=== PATIENT | female | born 1960 | race Caucasian/White ===

== ENCOUNTER 2022-04-30 01:16 | Outpatient (RCR) | payer BC, SELFPAY ==
--- OUTSIDE RECORDS SUMMARY | 2022-04-30 01:21 | XMS_ITS | Encounter Summary ---
:1960 Author Organization [facility] [place] [place] [address] Care Team Providers Name Role Phone Rhonda Oliva APRN Primary Care Provider [phone] Encounter Details Date Type Department Care Team Description 03/23/2022 Telephone [facility] [address] Social History Tobacco Use Types Packs/Day Years Used Date Former Smoker Smokeless Tobacco: Never Used Alcohol Use Standard Drinks/Week Comments Yes 4 (1 standard drink = 0.6 oz pure alcoho l) Sex Assigned at Date Recorded Not on file documented as of this encounter Miscellaneous Notes Telephone Encounter - Anika Viveros - 03/23/2022 9:51 AM EDT Jose, On December 30, 2021, the FDA recommended consideration of repeat dosing of EvuSheld every 6 months for patients with ongoing immunosuppression. If you have a patient that qualifies for a second dose of Evusheld, please follow the ???eD Tips and Tricks for Evusheld?? document for instructions on how to c onsent/order patients for this treatment. If you have ordered a first dose of Evusheld for a patient, the second dose follows the same process. According to [facility] records, Anika Reyes has received 1 dose of EVUSHELD (Tixagevimab and Cilgavimab) on 09/14/21. If you choose to order a second dose, after you have completed the consent and placed the order, our team will reach out to your patient for scheduling. We are working diligently to schedule one month ahead. Thank you, [employer] Team documented in this encounter Plan of Treatment Not on filedocumented as of this encounter Visit Diagnoses Not on filedocumented in this encounter Care Teams Internal Affairs Commander Relationship Specialty Start Date End Date Rhonda Oliva, SRAVAN PCP - General General Internal Medicine 01/13/22 [facility] [address] [address] documented as of this encounter
--- OUTSIDE RECORDS SUMMARY | 2022-04-30 01:21 | XMS_ITS | Clinical Summary ---
:1960 Author Organization [facility] [place] [address] Care Team Providers Name Role Phone Rhonda Oliva APRN Primary Care Provider [phone] Allergies Active Allergy Reactions Severity Noted Date Comments Epinephrine 09/27/2017 Faints Medications Medication Sig Dispensed Refills Start Date End Date Status eszopiclone (LUNESTA) 2 Take 2 mg by 0 Active mg Tablet mouth nightly as needed. LORazepam (ATIVAN) 0.5 Take 0.5 mg by 0 Active mg Tablet mouth as needed for Anxiety (prior to procedures). azaTHIOprine (Imuran) Take 1 tablet by 90 tablet 0 12/01/2021 Active 50 mg mouth daily. TabletIndications: Autoimmune hepatitis Additional Information Patient taking differently: 50 mg Oral NIGHTLY, Reported on 01/13/2022 omeprazole (PriLOSEC) Take 1 capsule by 60 capsule 0 2 01/16/2023 Active 40 mg Capsule, Delayed mouth 2 times daily. 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 Anika Viveros [place] 02/26/2022 Telephone Thoracic Surgery Raisa Horne RN 02/12/2022 TH Visit Thoracic Surgery Panfilo Horta History of esophagogastroduodenoscopy (EGD); (TeleHealth) MD Ronald Pneumomediastin um 02/11/2022 Telephone Thoracic Surgery Maurisio Christian R 02/01/2022 Ancillary Radiology [place], Procedure Rhonda Culver APRN from Last 3 Months Immunizations Name Administration Dates Next Due Pfizer Covid-19 (Purple Cap) Vaccine 02/18/2021, 10/16/2020, 09/25/2020 (12yrs+) Social History Tobacco Use Types Packs/Day Years Used Date Former Smoker Smokeless Tobacco: Never Used Alcohol Use Standard Drinks/Week Comments Yes 4 (1 standard drink = 0.6 oz pure alcoho l) Sex Assigned at Date Recorded Not on file Last Filed Vital Signs Vital Sign Reading Time Taken Comments Blood Pressure 135/81 01/16/2022 1:42 PM EDT Pulse 72 01/16/2022 1:42 PM EDT Temperature 36.8 ??C (98.2 ??F) 01/16/2022 1:42 PM EDT Respiratory Rate 18 01/16/2022 1:42 PM EDT Oxygen Saturation 100% 01/16/2022 1:42 PM EDT Inhaled Oxygen Concentration - - Weight 83.9 kg (185 lb) 01/13/2022 7:52 PM EDT Height 175.3 cm (5' 9) 01/13/2022 7:52 PM EDT Body Mass Index 27.32 01/13/2022 7:52 PM EDT Plan of Treatment Health Maintenance Due Date Last Done Comments HIV screen 1976 Hepatitis C Screening 1976 Tdap adult 1977 Tetanus vaccine 1977 HPV test 1988 PAP Smear 1988 Breast Cancer Share Decision 1998 Needed Colonoscopy 12/12/2003 Breast Cancer screening 2008 Zoster vaccine (1 of 2) 2008 Advance Directive 2013 Covid-19 Vaccine (4 - Booster for 04/15/2021 02/18/2021, , Pfizer series) 09/25/2020 Influenza (Flu) vaccine (1 of 1 - 03/04/2022 Influenza standard series) Diabetes Screening (HgbA1C or 01/15/2025 01/15/2022, 2021, Glucose) 06/02/2020, Additional history exists Procedures Procedure Name Priority Date/Time Associated Comments Diagnosis FILM LIBRARY STORAGE Routine 02/01/2022 12:00 AM Results for this ONLY DX CHEST EDT procedure are in the results section. DIAGNOSTIC RADIOLOGY 02/01/2022 12:00 AM Results for this SCAN EDT procedure are i n the results section. from Last 3 Months Results SCAN DOC: DIAGNOSTIC RADIOLOGY (02/01/2022 12:00 AM EDT) Narrative This result has an attachment that is no t available. Unknown MEDIA MGR SCAN EXT ORDR/RSLT Film Library- Storage Only DX Chest (02/01/2022 12:00 AM EDT) Specimen (Source) Anatomical Location Collection Method / Collectio n Time Received Time / Laterality Volume Narrative RAD - 02/11/2022 2:23 PM EDT This exam is auto-finalizing. It's purpo se is for storage only. Rhonda Oliva APRN IMG FILM LIBRARY ORDERABLES Performing Organization Address City/State/ZIP Code Phon e Number [place], [place] from Last 3 Months Insurance Payer Benefit Plan Subscriber ID Effective Dates Phone Address Type / Group [employer] [place] [facility] [id number] 2018[facility] [phone] [address] [facility] [address] [facility] [id number] (Work) [phone] Advance Directives Latest Code Status on File Code Status Date Activated Date Inactivated Comments Attempt Cardiopulmonary Resuscitation - 01/14/2022 12:54 AM 2021 4:26 PM Inpatient Code Status decision made by: Patient Care Teams Pyrometer Operator Relationship Specialty Start Date End Date Rhonda Oliva APRN PCP - General General Internal Medicine 01/13/[address] [facility] [address] [place], [place] [id number]
--- OUTSIDE RECORDS SUMMARY | 2022-04-30 01:21 | XMS_ITS | Encounter Summary ---
:1960 Author Organization [facility] Address [address] [place] [address] Care Team Providers Name Role Phone Rhonda Oliva APRN Primary Care Provider [phone] Encounter Details Date Type Department Care Team Description 04/14/2022 Telephone [place] [facility] [place] Petersen [place] [address] [place] [address] [phone] (Wo rk) Social History Tobacco Use Types Packs/Day Years Used Date Former Smoker Smokeless Tobacco: Never Used Alcohol Use Standard Drinks/Week Comments Yes 4 (1 standard drink = 0.6 oz pure alcoho l) Sex Assigned at Date Recorded Not on file documented as of this encounter Miscellaneous Notes Telephone Encounter - Marla Petersen MD - 04/14/2022 4:40 PM EDT Discussed current recommendations for second dose of Evusheld and booster. Will reach out to her PCPoffice to see if they can help arrange Evusheld at [facility]. documented in this encounter Plan of Treatment Not on filedocumented as of this encounter Visit Diagnoses Not on filedocumented in this encounter Care Teams Parking Station Attendant Relationship Specialty Start Date End Date Rhonda Oliva APRN PCP - General General Internal Medicine 01/13/[address] [place] [address] documented as of this encounter
--- OUTSIDE RECORDS SUMMARY | 2022-04-30 01:22 | XMS_ITS | Encounter Summary ---
:1960 Author Organization [facility] [place] [address] Care Team Providers Name Role Phone None Primary Care Provider Unavailable Reason for Visit Consultation (Routine) - Closed Specialty Diagnoses / Procedures Referred By Contact Refer red To Contact Diagnoses Autoimmune hepatitis Immunocompromised state due to drug therapy Marla Petersen MD [facility] Public Health [facility] [place] [address] [place] [address] Referral ID Status Reason Start Date Expiration Date Visits V isits Requested Authorized [id number] Closed Consult, 09/03/2021 09/03/2022 1 1 Test & Treat Encounter Details Date Type Department Care Team Description 09/14/2021 Clinical Support Public Health at [facility] At high risk for [facility] [place] [address] Social History Tobacco Use Types Packs/Day Years Used Date Former Smoker Smokeless Tobacco: Never Used Alcohol Use Standard Drinks/Week Comments Yes 4 (1 standard drink = 0.6 oz pure alcoho l) Sex Assigned at Date Recorded Not on file documented as of this encounter Patient Instructions Patient Jimmie Telles RN - 09/14/2021 9:54 AM EDT Thank you for seeking care at [facility]. You received an Evusheld (tixagevimab/cilgavimab) injection in the clinic today. Since you were monitored for 1 hour in the clinic for an allergic reaction to Evusheld, it is unlikely that you will develop an allergic reaction once leaving the clinic. However, please tell your healthcare provider right away if you get any of the following signs and symptoms of allergic reactions: fever, chills, nausea, headache, shortness of breath, low or high blood pressure, rapid or slow heartrate, chest discomfort or pain, weakness, confusion, feeling tired, wheezing, swelling of your lips,face, or throat, rash including hives, itching, muscle aches, dizziness and sweating. These reactions may be severe or life threatening. You may have pain, bruising of the skin, soreness, and swelling, at the injection site. These are all normal side effects that should resolve within a week of your injection. What are other important side effects of Evusheld? Cardiac (heart) events: Serious cardiac adverse events have happened, but were not common, in peoplewho received EVUSHELD and also in people who did not receive EVUSHELD in the clinical trial studyingpre-exposure prophylaxis for prevention of COVID-19. In people with risk factors for cardiac events ( including a history of heart attack), more people who received EVUSHELD experienced serious cardiac events than people who did not receive EVUSHELD. It is not known if these events are related to EVUSHELD or underlying medical conditions. Contact your healthcare provider or get medical help right awayif you get any symptoms of cardiac events, including pain, pressure, or discomfort in the chest, arms, neck, back, stomach or jaw, as well as shortness of breath, feeling tired or weak (fatigue), feeling sick (nausea), or swelling in your ankles or lower legs You can find further information about Evusheld here: https://www.fda.gov/media/675451/download documented in this encounter Plan of Treatment Not on filedocumented as of this encounter Visit Diagnoses Diagnosis At high risk for infection Other specified conditions influencing h ealth status documented in this encounter Administered Medications Inactive Administered Medications - up to 3 most recent administrations Medication Order MAR Action Action Date Dose Rate Site cilgavimab (Evusheld) 150 Given 09/14/2021 9:53 AM 300 mg Right Gluteal mg/1.5 mL intramuscular EDT injection (EUA) 300 mg 300 mg, Intramuscular, ONCE, 1 dose, On Tue09/14/21 at 1000, General information: DO NOT SHAKE VIALS. Prepared syringes should be administered immediately and discarded if not administered within 4 hours. Withdraw 300 mg (3 mL) from vial and inject into gluteal muscle. Administered with 300 mg (3 mL) of tixagevimab. Administer in different injection sites, preferably one in each of the gluteal muscles, one after the other., Outpatient Transfusion, Routine, Has the patient or caregiver been informed of alternatives to tixagevimab + cilgavimab? Yes, Has the patient or caregiver been informed tixagevimab + cilgavimab is not approved by the FDA and is authorized for use under Emergency Use Authorization? Yes, Has the patient or caregiver been given a tixagevimab + cilgavimab fact sheet? Yes tixagevimab (Evusheld) 150 mg/1.5 Given 09/14/2021 9:51 AM EDT 3 00 mg Left Gluteal mL intramuscular injection (EUA) 300 mg 300 mg, Intramuscular, ONCE, 1 dose, On Tue09/14/21 at 1000, General information: DO NOT SHAKE VIALS. Prepared syringes should be administered immediately and discarded if not administered within 4 hours. Withdraw 300 mg (3 mL) from vial and inject into gluteal muscle. Administered with 300 mg (3 mL) of cilgavimab. Administer in different injection sites, preferably one in each of the gluteal muscles, one after the other., Outpatient Transfusion, Routine, Has the patient or caregiver been informed of alternatives to tixagevimab + cilgavimab? Yes, Has the patient or caregiver been informed tixagevimab + cilgavimab is not approved by the FDA and is authorized for use under Emergency Use Authorization? Yes, Has the patient or caregiver been given a tixagevimab + cilgavimab fact sheet? Yes documented in this encounter Care Teams Skiver Machine Operator Relationship Specialty Start Date End Date None PCP - General 09/27/17 01/12/22 None documented as of this encounter
--- OUTSIDE RECORDS SUMMARY | 2022-04-30 01:22 | XMS_ITS | Encounter Summary ---
:1960 Author Organization [facility] [place] [address] Care Team Providers Name Role Phone None Primary Care Provider Unavailable Reason for Visit Reason Onset Date Comments Reminder Appointment 01/21/2021 Encounter Details Date Type Department Care Team Description 01/21/2021 Telephone [place] [facility] [place] Camara Reminder Appointment [facility] [place] [address] Social History Tobacco Use Types Packs/Day Years Used Date Former Smoker Smokeless Tobacco: Never Used Alcohol Use Standard Drinks/Week Comments Yes 4 (1 standard drink = 0.6 oz pure alcoho l) Sex Assigned at Date Recorded Not on file documented as of this encounter Miscellaneous Notes Telephone Encounter - Beatrice Camara CCMA - 01/21/2021 5:01 PM EDT Called patient to review medications and allergies for their upcoming gastroenterology Type of Appointment: Telehealth appointment. Reach Patient during MA Check: Yes Notes for the provider: Notes for the nurse: documented in this encounter Plan of Treatment Not on filedocumented as of this encounter Visit Diagnoses Not on filedocumented in this encounter Care Teams Master Hearth Technician Relationship Specialty Start Date End Date None PCP - General 09/27/17 01/12/22 None documented as of this encounter
--- OUTSIDE RECORDS SUMMARY | 2022-04-30 01:22 | XMS_ITS | Encounter Summary ---
:1960 Author Organization [facility] [address] Care Team Providers Name Role Phone None Primary Care Provider Unavailable Reason for Visit Reason Onset Date Comments Medication Refill 10/06/2018 Encounter Details Date Type Department Care Team Description 10/06/2018 Refill [place] [facility] [place]la Petersen, Autoimmune hepatitis [facility] [place] [phone] [facility] [phone] [place], [place] [address] Social History Tobacco Use Types Packs/Day Years Used Date Former Smoker Smokeless Tobacco: Never Used Alcohol Use Standard Drinks/Week Comments Yes 4 (1 standard drink = 0.6 oz pure alcoho l) Sex Assigned at Date Recorded Not on file documented as of this encounter Plan of Treatment Not on filedocumented as of this encounter Visit Diagnoses Diagnosis Autoimmune hepatitis documented in this encounter Care Teams Industrial Servicer Relationship Specialty Start Date End Date None PCP - General 09/27/17 01/12/22 None documented as of this encounter
--- OUTSIDE RECORDS SUMMARY | 2022-04-30 01:22 | XMS_ITS | Encounter Summary ---
:1960 Author Organization [facility] [place] [address] Care Team Providers Name Role Phone Rhonda Oliva APRN Primary Care Provider [phone] Reason for Referral Diagnostic Test (Emergency) - Closed Specialty Diagnoses / Procedures Referred By Contact Refer red To Contact Radiology Diagnoses Abnormal findings on esophagogastroduodenoscopy (EGD) Marla Petersen MD [facility] Rad Ct Scan Procedures CT Chest w Contrast [facility] [place] [address] [place] [address] Phone: Referral ID Status Reason Start Date Expiration Date Visits V isits Requested Authorized [id number] Closed Specialty 01/13/2022 07/16/2023 1 1 Service Requested Encounter Details Date Type Department Care Team Description 01/13/2022 Orders Only Gastroenterology at [place], Abnormal findings on [facility] Marla Culver MD esophagogastroduodenoscopy [facility] (EGD) [facility] [place] [address] Social History Tobacco Use Types Packs/Day Years Used Date Former Smoker Smokeless Tobacco: Never Used Alcohol Use Standard Drinks/Week Comments Yes 4 (1 standard drink = 0.6 oz pure alcoho l) Sex Assigned at Date Recorded Not on file documented as of this encounter Plan of Treatment Not on filedocumented as of this encounter Results CT Chest w Contrast (01/13/2022 5:27 PM EDT) Anatomical Region Laterality Modality Chest Computed Tomography Specimen (Source) Anatomical Collection Method Collection Time Re ceived Time Location / / Volume Laterality 01/13/2022 5:44 PM EDT Impressions 01/13/2022 6:50 PM EDT Extensive mottled free air extending from the lower neck soft tissues, the mediastinum, peritoneum and retroperiton eum, compatible with an esophageal perforation. These findings were discussed with Dr. Lilia gutierrez at the time of this dictation. Thank you for letting us participate in the care of this patient. ??If you are a health care provider and have any questi ons regarding this report, please contact the number below. ??For patients who have questions please contact the health rn critical care that requested your imaging first. ? Electronically signed by: Duong zacarias MD, [facility] ([phone]), at 01/13/2022 6:50 PM Narrative 01/13/2022 6:50 PM EDT EXAMINATION: CT CHEST W CONTRAST CLINICAL HISTORY: r/u esophageal perfora tion EGD on 01/13/22 for dysphagia, ring dilat ed, deep defect post, concern for esophageal perforation, did not tolerate esophagram due to claustrophobia, oral contrast TECHNIQUE: 3.75 mm thick axial contiguou s sections were obtained through the chest via helical acquisition after the intravenous administration of contrast, Administered 60.0 ml of OMNIPAQUE 350.00 mg/ml. Thin-section reconstructions as well as coronal and sagittal reformatted images were generated. COMPARISON: None FINDINGS: Esophagus: Although no enteric contrast appears to have extravasated from the esophageal lumen, extensive mottled free air is seen extending from ??the distal esophagus just proximal to the GE juncti on. The mottled air extends into the peritoneum, and peritoneal fat adjacent to the lesser curvature of the stomach, and into the retroperitoneum, particular ly on the LEFT. Air is also noted superiorly with trace air in the mediast inum (series 3, image 29) and into the lower neck soft tissues. Findings are co mpatible with an esophageal perforation. Pulmonary parenchyma: Mild bibasilar foc al atelectasis. Airways: No significant findings. Pleura: No significant findings. Lymph nodes: No significant findings. Heart, pericardium, and great vessels: E ctasia of ascending aorta measuring 4.1 cm. Other mediastinal structures: Trace medi astinal free air, or esophageal perforation, as described above. Lower neck: Trace multiple free air is s een in the lower neck soft tissues Upper abdomen: Multiple free air as desc ribed above. No loculated collections that can be seen Body wall soft tissues: No significant f indings. Skeletal structures: No significant find ings. Procedure Note Duong Burns MD - 01/13/2022Form atting of this note might be different from the original. EXAMINATION: CT CHEST W CONTRAST CLINICAL HISTORY: r/u esophageal perfora tion EGD on 01/13/22 for dysphagia, ring dilat ed, deep defect post, concern for esophageal perforation, did not tolerate esophagram due to claustrophobia, oral contrast TECHNIQUE: 3.75 mm thick axial contiguou s sections were obtained through the chest via helical acquisition after the intravenous administration of contrast, Administered 60.0 ml of OMNIPAQUE 350.00 mg/ml. Thin-section reconstructions as well as coronal and sagittal reformatted images were generated. COMPARISON: None FINDINGS: Esophagus: Although no enteric contrast appears to have extravasated from the esophageal lumen, extensive mottled free air is seen extending from the distal esophagus just proximal to the GE juncti on. The mottled air extends into the peritoneum, and peritoneal fat adjacent to the lesser curvature of the stomach, and into the retroperitoneum, particular ly on the LEFT. Air is also noted superiorly with trace air in the mediast inum (series 3, image 29) and into the lower neck soft tissues. Findings are co mpatible with an esophageal perforation. Pulmonary parenchyma: Mild bibasilar foc al atelectasis. Airways: No significant findings. Pleura: No significant findings. Lymph nodes: No significant findings. Heart, pericardium, and great vessels: E ctasia of ascending aorta measuring 4.1 cm. Other mediastinal structures: Trace medi astinal free air, or esophageal perforation, as described above. Lower neck: Trace multiple free air is s een in the lower neck soft tissues Upper abdomen: Multiple free air as desc ribed above. No loculated collections that can be seen Body wall soft tissues: No significant f indings. Skeletal structures: No significant find ings. IMPRESSION Extensive mottled free air extending fro m the lower neck soft tissues, the mediastinum, peritoneum and retroperiton eum, compatible with an esophageal perforation. These findings were discussed with Dr. Lilia gutierrez at the time of this dictation. Thank you for letting us participate in the care of this patient. If you are a health care provider and have any questi ons regarding this report, please contact the number below. For patients w ho have questions please contact the health rn critical care that requested your imaging first. Electronically signed by: Duong zacarias MD, [facility] ([phone]), at 01/13/2022 6:50 PM Marla Petersen MD IMG CT ORDERABLES documented in this encounter Visit Diagnoses Diagnosis Abnormal findings on esophagogastroduode noscopy (EGD) Abnormal findings on esophagogastroduode noscopy (EGD) documented in this encounter Care Teams Break Out Worker Relationship Specialty Start Date End Date Rhonda Oliva, CISCO CONSULTANT PCP - General General Internal Medicine 01/13/[address] [place] [address] documented as of this encounter
--- OUTSIDE RECORDS SUMMARY | 2022-04-30 01:22 | XMS_ITS | Encounter Summary ---
:1960 Author Organization [place] [address] Care Team Providers Name Role Phone None Primary Care Provider Unavailable Encounter Details Date Type Department Care Team Description 04/03/2018 Orders Only Gastroenterology at [facility] Marla Petersen, Fatigue, unspecified [facility] [place] [address] [facility] [phone] [place] [facility] Social History Tobacco Use Types Packs/Day Years Used Date Former Smoker Smokeless Tobacco: Never Used Alcohol Use Standard Drinks/Week Comments Yes 4 (1 standard drink = 0.6 oz pure alcoho l) Sex Assigned at Date Recorded Not on file documented as of this encounter Plan of Treatment Not on filedocumented as of this encounter Visit Diagnoses Diagnosis Fatigue, unspecified type documented in this encounter Care Teams Cottonseed Meat Presser Relationship Specialty Start Date End Date None PCP - General 09/27/17 01/12/22 None documented as of this encounter
--- OUTSIDE RECORDS SUMMARY | 2022-04-30 01:22 | XMS_ITS | Encounter Summary ---
:1960 Author Organization [facility] [place] [address] Care Team Providers Name Role Phone Rhonda Oliva APRN Primary Care Provider [phone] Encounter Details Date Type Department Care Team Description 02/01/2022 Ancillary Procedure Radiology Library at Nikolay Oliva [facility] Culver [facility] [address] [address] [place] [address] [phone] (Wo rk) Social History Tobacco Use Types Packs/Day Years Used Date Former Smoker Smokeless Tobacco: Never Used Alcohol Use Standard Drinks/Week Comments Yes 4 (1 standard drink = 0.6 oz pure alcoho l) Sex Assigned at Date Recorded Not on file documented as of this encounter Plan of Treatment Not on filedocumented as of this encounter Procedures Procedure Name Priority Date/Time Associated Diagnosis Comme nts FILM LIBRARY Routine 02/01/2022 12:00 AM Results for this STORAGE ONLY DX EDT procedure ar e in CHEST the results section. documented in this encounter Results Film Library- Storage Only DX Chest (02/01/2022 12:00 AM EDT) Specimen (Source) Anatomical Location Collection Method / Collectio n Time Received Time / Laterality Volume Narrative RAD - 02/11/2022 2:23 PM EDT This exam is auto-finalizing. It's purpo se is for storage only. Rhonda Oliva APRN IMNatalei FILM LIBRARY ORDERABLES Performing Organization Address City/State/ZIP Code Phon e Number DH RAD DH RAD [place], [place] documented in this encounter Visit Diagnoses Not on filedocumented in this encounter Care Teams Warehouse Clerk Relationship Specialty Start Date End Date Rhonda Oliva APRN PCP - General General Internal Medicine 01/13/[address] [place] [address] documented as of this encounter
--- OUTSIDE RECORDS SUMMARY | 2022-04-30 01:22 | XMS_ITS | Encounter Summary ---
:1960 Author Organization [facility] Address [facility] [address] [place] [address] Care Team Providers Name Role Phone Rhonda Oliva APRN Primary Care Provider [phone] Encounter Details Date Type Department Care Team Description 01/25/2022 Telephone Gastroenterology at [facility] Brigette Guzman CMA [facility] [place] [address] DEPT [phone] Social History Tobacco Use Types Packs/Day Years Used Date Former Smoker Smokeless Tobacco: Never Used Alcohol Use Standard Drinks/Week Comments Yes 4 (1 standard drink = 0.6 oz pure alcoho l) Sex Assigned at Date Recorded Not on file documented as of this encounter Miscellaneous Notes Telephone Encounter - Brigette Guzman CMA - 01/25/2022 8:20 AM EDT Called patient to review medications and allergies for their upcoming gastroenterology Type of Appointment: Telehealth appointment. Reach Patient during MA Check: Yes Notes for the provider: Notes for the nurse: documented in this encounter Plan of Treatment Not on filedocumented as of this encounter Visit Diagnoses Not on filedocumented in this encounter Care Teams Injection Molding Machine Operator Relationship Specialty Start Date End Date Rhonda Oliva APRN PCP - General General Internal Medicine 01/13/[address] [place], [place] [address] documented as of this encounter
--- OUTSIDE RECORDS SUMMARY | 2022-04-30 01:22 | XMS_ITS | Encounter Summary ---
:1960 Author Organization [facility] [place] [address] Care Team Providers Name Role Phone Rhonda Oliva APRN Primary Care Provider [phone] Encounter Details Date Type Department Care Team Description 01/21/2022 Orders Only Thoracic Surgery Charly Tinajero History of [facility] esophagogastroduodenoscopy (EGD) Center [facility] [address] THORACIC [phone] [place] [address] Social History Tobacco Use Types Packs/Day Years Used Date Former Smoker Smokeless Tobacco: Never Used Alcohol Use Standard Drinks/Week Comments Yes 4 (1 standard drink = 0.6 oz pure alcoho l) Sex Assigned at Date Recorded Not on file documented as of this encounter Plan of Treatment Scheduled Orders Name Type Priority Associated Diagnoses Order S chedule XR Chest PA & Imaging Routine History of Expected: Lateral esophagogastroduodenoscopy ( EGD) 02/04/2022, (Generic) Expires: 08/06/2022 documented as of this encounter Visit Diagnoses Diagnosis History of esophagogastroduodenoscopy (E GD) documented in this encounter Care Teams Dike Supervisor Relationship Specialty Start Date End Date Rhonda Oliva APRN PCP - General General Internal Medicine 01/13/[address] [place] [address] documented as of this encounter
--- OUTSIDE RECORDS SUMMARY | 2022-04-30 01:22 | XMS_ITS | Encounter Summary ---
:1960 Author Organization [facility] [place] [address] Care Team Providers Name Role Phone Rhonda Oliva APRN Primary Care Provider Reason for Referral Diagnostic Test (Emergency) - Closed Specialty Diagnoses / Procedures Referred By Contact Refer red To Contact Radiology Diagnoses Abnormal findings on esophagogastroduodenoscopy (EGD) Marla Petersen MD [facility] Rad Ct Scan Procedures CT Chest w Contrast [facility] [place] [address] [place] [address] Phone: Referral ID Status Reason Start Date Expiration Date Visits V isits Requested Authorized [id number] Closed Specialty 01/13/2022 07/16/2023 1 1 Service Requested Reason for Visit Auth/Cert Specialty Diagnoses / Procedures Referred By Contact Refer red To Contact Diagnoses Acute mediastinitis Cece Coello MD [facility] Procedures EMERGENCY IPI [facility] [address] Referral ID Status Reason Start Date Expiration Date Visits Requ ested Visits Authorized [id number] 1 1 Encounter Details Date Type Department Care Team Description 01/13/[address] Scan at [facility] Abnormal findings on Encounter [facility] esophagogastrod uodenoscopy (EGD) [place] [address] Social History Tobacco Use Types Packs/Day Years Used Date Former Smoker Smokeless Tobacco: Never Used Alcohol Use Standard Drinks/Week Comments Yes 4 (1 standard drink = 0.6 oz pure alcoho l) Sex Assigned at Date Recorded Not on file documented as of this encounter Medications at Time of Discharge Medication Sig Dispensed Refills Start Date End Date omeprazole (PriLOSEC) 40 Take 1 capsule by 60 capsule 0 01/0101/16/2023 mg Capsule, Delayed mouth 2 times Release(E.C.) daily. Resume taking previous once daily dose in 1 month (around 02/16/2022) azaTHIOprine (Imuran) 50 Take 1 tablet by 90 tablet 0 12/01 mg TabletIndications: mouth daily. Autoimmune hepatitis LORazepam (ATIVAN) 0.5 mg Take 0.5 mg by 0 Tablet mouth as needed for Anxiety (prior to procedures). eszopiclone (LUNESTA) 2 Take 2 mg by mouth 0 mg Tablet nightly as needed. amoxicillin-clavulanate Take 7.3 mLs by 29.2 mL 0 022 01/18/2022 (Augmentin-ES) 600-42.9 mouth every 12 mg/5 mL Suspension for hours for 2 days. Reconstitution omeprazole (PRILOSEC OTC) Take 20 mg by mouth 0 01/16/2022 20 mg Tablet, Delayed daily. Release (E.C.) documented as of this encounter Plan of Treatment Not on filedocumented as of this encounter Procedures Procedure Name Priority Date/Time Associated Diagnosis Comme nts CT CHEST W STAT 01/13/2022 5:27 Abnormal findings on Resu lts for CONTRAST PM EDT esophagogastroduodenoscopy ( EGD) this procedure are in the results section. documented in this encounter Results CT Chest w Contrast [...] who have questions please contact the health transitions rn care coordinator that requested your imaging first. ? Narrative 01/13/2022 6:50 PM EDT EXAMINATION: CT [...] ho have questions please contact the health transitions rn care coordinator that requested your imaging first. Marla Petersen MD IMG CT ORDERABLES documented in this encounter Visit Diagnoses Diagnosis Abnormal findings on esophagogastroduode noscopy (EGD) documented in this encounter Administered Medications Inactive Administered Medications - up to 3 most recent administrations Medication Order MAR Action Action Date Dose Rate Site iohexoL (Omnipaque) (350 mg/mL) Given 01/13/2022 5:11 PM EDT 60 mLs solution 0-200 mL 0-200 mL, Intravenous, ONCE PRN, 1 dose, Starting on Tue01/13/22 at 1711, Until Tue01/13/22 at 1711, Per Protocol, Warning Vesicant/Irritant Medication , Radiology Contrast, Routine documented in this encounter Care Teams Yarn Texture Machine Operator Relationship Specialty Start Date End Date Rhonda Oliva, PURCHASING DIRECTOR PCP - General General Internal Medicine 01/13/[address] [place] [address] documented as of this encounter
--- OUTSIDE RECORDS SUMMARY | 2022-04-30 01:22 | XMS_ITS | Encounter Summary ---
:1960 Author Organization [facility] [place] [address] Care Team Providers Name Role Phone None Primary Care Provider Unavailable Encounter Details Date Type Department Care Team Description 01/20/2018 Telephone Gastroenterology at [facility] Mika Chase [facility] [place] [address] Social History Tobacco Use Types Packs/Day Years Used Date Former Smoker Smokeless Tobacco: Never Used Sex Assigned at Date Recorded Not on file documented as of this encounter Miscellaneous Notes Telephone Encounter - Mika Chase - 01/20/2018 1:11 PM EDT Pt called to schedule an EGD. I told her there was no order for an EGD but there were orders for labs. Pt said she wanted to do the labs locally. I asked where I could fax the orders to but she did notknow a facility since she just moved to the area. She will find out where she wants to have the lab orders faxed to and will call us back. documented in this encounter Plan of Treatment Not on filedocumented as of this encounter Visit Diagnoses Not on filedocumented in this encounter Care Teams Hypoid Gear Generator Relationship Specialty Start Date End Date None PCP - General 09/27/17 01/12/22 None documented as of this encounter
--- OUTSIDE RECORDS SUMMARY | 2022-04-30 01:22 | XMS_ITS | Encounter Summary ---
:1960 Author Organization [facility] Address [facility] [place] [address] Care Team Providers Name Role Phone None Primary Care Provider Unavailable Reason for Visit Reason Onset Date Comments Other 10/06/2018 refill request Encounter Details Date Type Department Care Team Description 10/06/2018 Telephone Gastroenterology at [facility] [place] Jean Paul Meek (refill [facility] Lilia Ramsey RN request) [place] [address] Social History Tobacco Use Types Packs/Day Years Used Date Former Smoker Smokeless Tobacco: Never Used Alcohol Use Standard Drinks/Week Comments Yes 4 (1 standard drink = 0.6 oz pure alcoho l) Sex Assigned at Date Recorded Not on file documented as of this encounter Miscellaneous Notes Telephone Encounter - Joe Jaquez RN - 10/06/2018 3:24 PM EDT Called patient and advised her per Dr. Nicola biggs to continue taking 75mg daily as she has been doing. Will discuss dosing at her scheduled office visit in November. Refills sent in for patient. The patient indicates understanding of these issues and agrees with the plan. Telephone Encounter - Daniela Meek RN - 10/06/2018 12:02 PM EDT Received call from patient asking for refill of Azathioprine 75 mg daily. Reviewed chart. Patient last seen in clinic September 2017. Most recent labs received from September 2018 and forwarded to provider. At last office visit discussed lowering dose of Azathioprine to 50 mg and last refill from Apr 2018 was sent for that dosage. On patient's phone message, she indicated that she continues to take the 75mg dose. Attempted to reach patient to discuss but her telephone was not receiving calls. Will review dosage and recent labs with provider. Message sent to scheduling to help facilitate a f/u appointment for patient here in GI. documented in this encounter Plan of Treatment Not on filedocumented as of this encounter Visit Diagnoses Not on filedocumented in this encounter Care Teams Jinriksha Driver Relationship Specialty Start Date End Date None PCP - General 09/27/17 01/12/22 None documented as of this encounter
--- OUTSIDE RECORDS SUMMARY | 2022-04-30 01:22 | XMS_ITS | Encounter Summary ---
:1960 Author Organization [facility] [place] [address] Care Team Providers Name Role Phone Rhonda Oliva APRN Primary Care Provider [phone] Reason for Referral Diagnostic Test (Emergency) - Authorized Specialty Diagnoses / Procedures Referred By Contact Refer red To Contact Radiology Diagnoses Abnormal findings on esophagogastroduodenoscopy (EGD) Marla Petersen MD [facility] Rad Xray Procedures XR Fluoro Barium Swallow (Single Contrast) [address] [place], [place], [place] [id number] Referral ID Status Reason Start Expiration Visits Visits Date Date Requested Authorized [id number] Authorized Specialty 01/13/2022 07/16/2023 1 1 Service Requested Encounter Details Date Type Department Care Team Description 01/13/2022 Orders Only Gastroenterology at [place], Abnormal findings on [facility] Marla Culver MD esophagogastroduodenoscopy [facility] (EGD) [facility] [address], [place] [address] [id number] Social History Tobacco Use Types Packs/Day Years Used Date Former Smoker Smokeless Tobacco: Never Used Alcohol Use Standard Drinks/Week Comments Yes 4 (1 standard drink = 0.6 oz pure alcoho l) Sex Assigned at Date Recorded Not on file documented as of this encounter Plan of Treatment Scheduled Orders Name Type Priority Associated Diagnoses Order S chedule XR Fluoro Barium Imaging STAT Abnormal findings on Exp ected: Swallow (Single esophagogastroduodenoscop y (EGD) 01/13/2022, Contrast) Expires: 07/15/2022 documented as of this encounter Visit Diagnoses Diagnosis Abnormal findings on esophagogastroduode noscopy (EGD) documented in this encounter Care Teams Beam Builder Relationship Specialty Start Date End Date Rhonda Oliva, CAPACITY ANALYST PCP - General General Internal Medicine 01/13/[address] [place] [address] documented as of this encounter
--- OUTSIDE RECORDS SUMMARY | 2022-04-30 01:22 | XMS_ITS | Encounter Summary ---
:1960 Author Organization [facility] [place] [address] Care Team Providers Name Role Phone None Primary Care Provider Unavailable Encounter Details Date Type Department Care Team Description 07/27/2021 TH Visit Gastroenterology at [facility] Marla Petersen, Autoimmune hepatitis; (TeleHealth) [facility] Lilia abarca MD Exposure to COVID-19 virus; [place] [address] [facility] Dysphagia, unspecified type [phone] [place] [address] Social History Tobacco Use Types Packs/Day Years Used Date Former Smoker Smokeless Tobacco: Never Used Alcohol Use Standard Drinks/Week Comments Yes 4 (1 standard drink = 0.6 oz pure alcoho l) Sex Assigned at Date Recorded Not on file documented as of this encounter Progress Notes Marla Petersen MD - 07/27/2021 9:30 AM EST GASTROENTEROLOGY TELEMEDICINE PROGRAM - ESTABLISHED PATIENT VISIT Chief Complaint: Anika Reyes is a 60 y.o. patient of ??for follow-up of AIH and dysphagia. ?? Detailed history:?? Autoimmune Hepatitis - Diagnosed in Aug 2014, she had a liver biopsy at that time. Initially on Prednisone which was rapidly tapered requiring restarting prednisone with a slow taper and AZA (initially 50 mg, but was empirically increased to 75 mg after stopping steroids).?? -??Repeat biopsy in 02/2016 showed treated AIH and focal bridging fibrosis.?? - Fibroscan 09/2017 F0-1 - Decreased AZA from 75 mg to 50 mg 11/30/2018 ?? Dysphagia -??She has history of Schatzki's ring which was dilated in 2011?? - EGD 03/2018 was negative, normal esophageal biopsies?? Interval history: She reports feeling well. She was exposed to COVID over the holidays. She tested negative multiple times (both at home antigen test and PCR test). She reports smelling smoke starting about one week after exposure with a reduction in normal sense of smell. Review of systems: 14-point review of systems reviewed and negative except as above. Medications: Outpatient Medications Prior to Visit Medication Sig Dispense Refill ??? azaTHIOprine (Imuran) 50 mg Tablet TAKE ONE TABLET BY MOUTH EVERY DAY 90 tablet 1 ??? LORazepam (ATIVAN) 0.5 mg Tablet Take 0.5 mg by mouth every 6 hours as needed for Anxiety. ??? eszopiclone (LUNESTA) 2 mg Tablet Take 2 mg by mouth nightly as needed. ??? omeprazole (PRILOSEC OTC) 20 mg Tablet, Delayed Release (E.C.) Take 20 mg by mouth as needed. No facility-administered medications prior to visit. Allergies: is allergic to epinephrine. Past Medical History: [facility] Past Surgical History: has a past surgical history that includes Upper Gi Endoscopy, Biopsy (13077) (N/A, 03/29/2018). Social History: reports that she has quit smoking. She has never used smokeless tobacco. She reportscurrent alcohol use of about 4.0 standard drinks of alcohol per week. She reports that she does not use drugs. Physical exam: No Physical Examination performed during this telemedicine visit Laboratory studies, imaging, and procedures (my review of prior records): No visits with results within 3 Month(s) from this visit. Latest known visit with results is: External Results on 06/11/2020 Component Date Value Ref Range Status ??? Sodium 06/02/2020 141 Final ??? Potassium 06/02/2020 4.2 Final ??? Chloride 06/02/2020 104 Final ??? CO2 06/02/2020 29 Final ??? BUN 06/02/2020 12 Final ??? Creatinine 06/02/2020 0.69 Final ? ? Estimated GFR 06/02/2020 >60 Final ??? Glucose Lvl 06/02/2020 90 Final ??? Calcium 06/02/2020 10.0 Final ??? Total Protein 06/02/2020 6.9 Final ??? Albumin 06/02/2020 4.4 Final ??? Total Bilirubin 06/02/2020 1 Final ??? Alk Phos 06/02/2020 50 Final ??? AST 06/02/2020 27 Final ??? ALT 06/02/2020 16 Final ??? PT 06/02/2020 11.3 Final ??? INR 06/02/2020 1.00 Final Assessment/Plan: Ms. Reyes is a 60 y.o. patient with autoimmune hepatitis and dysphagia (prior dilation of ring).We discussed that her recent change in her sense of smell could potentially be due to COVID infection. Will obtain antibody testing to determine whether she had prior infection. Discussed that her PCR testing may have been too late (10 days after onset of symptoms) to detect infection. If her Covid antibody testing is not consistent with prior infection, discussed further evaluation for this symptom would be necessary. We will update her liver enzymes now. As for her dysphagia her symptoms continue to be mild and intermittent. Upper endoscopy has been recommended for repeat dilation, she would liketo defer this until the summer due to the ongoing Covid pandemic. Her is on rituximab for cancer treatment and she is concerned about exposures. Recommendations: Liver enzymes now, if normal will repeat in 6 months. COVID-19 antibody testing (both spike and nucleocapsid). EGD with conscious sedation this summer. I spent 25 minutes face to face with the patient. 25 minutes were spent on counseling and discussionas of the above during this telemedicine visit. The patient was located in [place] at the timeof their visit. Approximae time in review of records and documentation 5 minutes. Approximate total time devoted to this single encounter on the day of the encounter: 30 minutes Marla Petersen MD [facility] [place] [address] documented in this encounter Plan of Treatment Scheduled Orders Name Type Priority Associated Diagnoses Order S chedule ENDOSCOPY CASE Procedures Routine Dysphagia, unspecified Ord ered: 07/27/2021 REQUEST: EGD, UPPER GI type ENDOSCOPY documented as of this encounter Visit Diagnoses Diagnosis Autoimmune hepatitis Exposure to COVID-19 virus Dysphagia, unspecified type documented in this encounter Care Teams Groover And Striper Operator Relationship Specialty Start Date End Date None PCP - General 09/27/17 01/12/22 None documented as of this encounter
--- OUTSIDE RECORDS SUMMARY | 2022-04-30 01:22 | XMS_ITS | Encounter Summary ---
:1960 Author Organization [facility] [place] [address] Care Team Providers Name Role Phone None Primary Care Provider Unavailable Reason for Visit Reason Onset Date Comments Medication Refill 04/17/2018 Encounter Details Date Type Department Care Team Description 04/17/2018 Refill [place] [facility] [place] MD [facility] [place] [address] GASTROENTEROLOGY [place] [id number] Social History Tobacco Use Types Packs/Day Years [...] hepatitis documented in this encounter Care Teams Psychology Physician Relationship Specialty Start Date End Date None PCP - General 09/27/17 01/12/22 None documented as of this encounter
--- OUTSIDE RECORDS SUMMARY | 2022-04-30 01:22 | XMS_ITS | Encounter Summary ---
:1960 Author Organization [facility] [place] [address] Care Team Providers Name Role Phone None Primary Care Provider Unavailable Encounter Details Date Type Department Care Team Description 03/29/2018 Hospital Encounter Gastro[place]ology at [facility] Marla Petersen, [facility] [place] [address] [facility] [phone] [place] [address] Social History Tobacco Use Types Packs/Day Years Used Date Former Smoker Smokeless Tobacco: Never Used Alcohol Use Standard Drinks/Week Comments Yes 4 (1 standard drink = 0.6 oz pure alcoho l) Sex Assigned at Date Recorded Not on file documented as of this encounter Last Filed Vital Signs Vital Sign Reading Time Taken Comments Blood Pressure 113/72 03/29/2018 10:45 AM EDT Pulse 58 03/29/2018 10:27 AM EDT Temperature 36.3 ??C (97.3 ??F) 03/29/2018 9:14 AM EDT Respiratory Rate 16 03/29/2018 10:27 AM EDT Oxygen Saturation 99% 03/29/2018 10:45 AM EDT Inhaled Oxygen Concentration - - Weight 74.8 kg (165 lb) 03/29/2018 9:14 AM EDT Height - - Body Mass Index 25.09 09/27/2017 9:31 AM EDT documented in this encounter Discharge Instructions Discharge InstructionsRubi Gaming RN - 03/29/2018 10:29 AM EDT UPPER GI ENDOSCOPY with biopsies WHAT TO EXPECT AFTER THE PROCEDURE After the test you may feel a little more gassy or bloated than usual, this is normal. ACTIVITY Because of the sedation that you received Your judgement and reaction time are affected ?? Go home and rest quietly for the remainder of the day. You may resume your normal activities tomorrow. ?? Change from one position to the next slowly. You may lose your balance unexpectedly Be careful on stairs, as you may be unsteady on your feet. FOR THE NEXT 24 HRS ?? DO NOT DRIVE OR OPERATE ANY MACHINERY ?? DO NOT DRINK ALCOHOLIC BEVERAGES ?? DO NOT SIGN LEGAL DOCUMENTS ?? If you are a smoker: DO NOT SMOKE WHILE YOU ARE ALONE Diet ?? Start by eating small portions of foods that ordinarily will not upset your stomach. Be gentle with what you choose to start with. ?? Drink plenty of fluids ( unless otherwise told not to) Medications You may have a mild sore throat. Ice chips, popsicles, over the counter throat lozenges or spray may help numb your throat. This procedure should not cause a fever. IV SITE-- slight redness or tenderness is normal, you can use warm compresses if you get concerned.If the tenderness +/or redness increases or foul drainage and a red streak occurs, please contact your PCP immediately. WHEN SHOULD YOU CALL FOR HELP? Call 911 anytime you think that you need emergency care. For example, call if: You passed out (lost consciousness). You cough up blood. You vomit blood or what looks like coffee grounds. You pass maroon or very bloody stools. Call your healthcare provider or seek immediate medical attention if: You have trouble swallowing. You have belly pain. Your stools are black or tarlike or have streaks of blood. You are sick to your stomach or cannot keep fluids down. Watch closely for changes in your health, and be sure to contact your doctor IF Your throat still hurts after a day or two You do not get better as expected. Tuesday-Tuesday Same Day Endo [phone] [id number]-[id number] Otherwise contact [phone] and ask to speak to the back tender contact center associate Follow-up care is a cortez part of your treatment and safety. Be sure to make and go to all appointments, and call your doctor if you are having problems. Instructions have been reviewed and patient expresses understanding documented in this encounter Medications at Time of Discharge Medication Sig Dispensed Refills Start Date End Date LORazepam (ATIVAN) 0.5 mg Take 0.5 mg by mouth 0 Tablet as needed for Anxiety (prior to procedures). eszopiclone (LUNESTA) 2 Take 2 mg by mouth 0 mg Tablet nightly as needed. azaTHIOprine (IMURAN) 50 Take 75 mg by mouth 0 04/17/2018 mg Tablet daily. omeprazole (PRILOSEC OTC) Take 20 mg by mouth 0 01/16/2022 20 mg Tablet, Delayed daily. Release (E.C.) documented as of this encounter H&P Notes Marla Petersen MD - 03/29/2018 9:45 AM EDT Patient Name: Anika Reyes Patient Age: 57 y.o. Birthdate: 1960 Admit date: 03/29/2018 Attending Physician: Marla Petersen MD Gastroenterology and Hepatology Pre-Procedure History and Physical Exam Procedure: EGD: Indication: Dysphagia, regurgitation There is no problem list on file for this patient. EXAM: HEENT: Airway examined, oropharynx clear Mallampati Score: II (soft palate, uvula, fauces visible) LUNGS: Clear to auscultation HEART: Regular rate and rhythm, normal S1, S2 ABDOMEN: Normal bowel sounds, soft, non tender, non distended, A/P Proceed with the planned endoscopic procedure. ASA 2 - Patient with mild systemic disease with no functional limitations Sedation Plan: moderate (conscious sedation) Risks and benefits of the procedure explained to the patient. Consent signed. documented in this encounter Plan of Treatment Not on filedocumented as of this encounter Procedures Procedure Name Priority Date/Time Associated Diagnosis Comme nts SPECIMEN TO Routine 03/29/2018 10:19 Results for this PATHOLOGY AM EDT procedure are i n the results section. SURGICAL PATHOLOGY Routine 03/29/2018 10:17 Resul ts for this REPORT AM EDT procedure are i n the results section. EGD WITH BIOPSY 03/29/2018 9:58 AM Schatzki's ring, (WRVU 2.49) EDT GERD, or eosinophilic esophagitis. Recommended EGD for follow-up with potential dilation - [facility] Off Meds UPPER GI ENDOSCOPY Routine 03/29/2018 9:43 AM Res ults for this EDT procedure are i n the results section. documented in this encounter Results Specimen to Pathology (03/29/2018 10:19 AM EDT) Specimen Anatomical Collection Method Collection Time Receive d Time (Source) Location / / Volume Laterality AP Specimen 03/29/2018 10:19 03/29/2018 AM EDT 10:19 AM EDT Narrative [facility] - 03/29/2018 10:19 AM EDT Specimen requisition ordered. ??Separate Pathology report to follow Marla Petersen MD PATHOLOGY/CYTOLOGY ORDERABLE S Performing Organization Address City/State/[place] [address] [facility] [address] Surgical Pathology Report (03/29/2018 10:17 AM EDT) Component Value Ref Test Analysis Performed At [facility] gist Range Method Time Signature Surgical [id number] ? Location: 4T; EA09; A [facility] Report The signing pathologist has (i) examined the relevant preparation(s) for the [facility] specimen(s) and (ii) rendered or confirmed the diagnosis(es) . HOSPITAL LABORATORY . ?Surgic al Pathology DIAGNOSIS Distal 2/3 esophagus, ?? biopsy: Esophageal squamous mucosa within normal limits. Electronically signed by: ??Iveth ETIENNE PhD, Jay Leahy Verified: ??03/30/2018 ?Pathologist Performed at: ??-[facility] Dept. of Pathology, [place], [place] CLINICAL INFORMATION Specimen Submitted: A - Distal 2/3 esophagus bx ??'s Clinical History and Diagnosis: 57-year-old female with dysphagia, R/O EOE SPECIMEN PROCESSING A - Labeled/Fixative: Distal 2/3 esophagus BX, formalin. Quantity/Size: Five, averaging 0.4 cm. TissueDescription: Soft, white tissues. Sections/Processing: Submitted en toto ??in 1 cassette labeled A1. ??sns Specimen (Source) Anatomical Collection Method Collection Time Re ceived Time Location / / Volume Laterality 03/29/2018 10:17 AM EDT Marla Petersen MD PATHOLOGY/CYTOLOGY ORDERABLE S Performing Organization Address [facility] [place] [address] UPPER GI ENDOSCOPY (03/29/2018 9:43 AM EDT) Component Value Ref Test Analysis Performed At [facility] Range Method Time Signature UPPER GI [facility] ENDOSCOPY Endoscopy Procedure Date: 03/29/2018 9:43 AM ? Patient Name: Anika Reyes ? Date of : 1960 ? Age: 57 ? Order #: [id number] ? Instrument Name: [id number] ? Procedure: ? Upper GI endoscopy Indications: ? Dysphagia, Esophageal reflux Providers: ? Marla Petersen, Christian Savage, RN , ? [place], Moe andrade Referring MD: ?None, MD Medicines: ? Midazolam 4 mg IV, Fentanyl 200 ? micrograms IV Complications: ? No immediate complications. Procedure: ? Pre-Anesthesia Assessment: ? - Prior to the procedure, a H istory ? and Physical was performed, a nd ? patient medications and aller gies ? were reviewed. The patient's ? tolerance of previous anesthe farhana was ? also reviewed. The risks and benefits ? of the procedure and the tian tion ? options and risks were discus sed with ? the patient. All questions we re ? answered, and informed consen t was ? obtained. Prior Anticoagulant s: The ? patient has taken no previous ? anticoagulant or antiplatelet agents. ? ASA Grade Assessment: II - A patient ? with mild systemic disease. A fter ? reviewing the risks and benef its, the ? patient was deemed in satisfa ctory ? condition to undergo the proc edure. ? The procedure, indications, b enefits, ? risks and alternatives were e xplained ? to the patient. Specifically ? discussed were potential ? complications including, but not ? limited to, bleeding, perfora tion, ? infection, missing a cancer, and ? adverse medication reactions. The ? Endoscope was introduced thro h the ? mouth, and advanced to the se cond ? part of duodenum. The patient ? tolerated the procedure well. The ? upper GI endoscopy was accomp lished ? without difficulty. The patie nt ? tolerated the procedure well. ? Findings: ? Esophagogastric landmarks were identified: the Z-line ? was found at 38 cm, the upper extent of the gastric ? folds was found at 39 cm and the site of hiatal ? narrowing was found at 42 cm from the incisors. ? A 4 cm hiatal hernia was present. ? The examined esophagus was normal. Biopsies were ? taken with a cold forceps for histology. Estimated ? blood loss: none. ? Multiple less than 5 mm sessile fundic gland polyps ? were found in the gastric body. ? The examined duodenum was normal. ? Moderate Sedation: ? I was present during the intraservice time as ? documented by the sedation RN. Impression: ?- Esophagogastric landmarks ? identified. ? - 4 cm hiatal hernia. ? - Normal esophagus. Biopsied. ? - Multiple fundic gland polyp s. ? - Normal examined duodenum. Recommendation: ?- Await pathology results. ? - Return to my office. ? Procedure Code(s): ?? --- Professional --- ? 05276, Esophagogastroduodenos copy, ? flexible, transoral; with bio psy, ? single or multiple CPT copyright 2017 [employer]. All rights reserved. The codes documented in this report are preliminary and upon whirley operator review may be revised to meet current compliance requirements. Attending Participation: ? I personally performed the entire procedure. ? Marla Petersen, 03/29/2018 10:22:33 AM Number of Addenda: 0 Note Initiated On: 03/29/2018 9:43 AM Specimen (Source) Anatomical Collection Method Collection Time Re ceived Time Location / / Volume Laterality 03/29/2018 9:43 AM EDT None GENERAL SURGICAL ORDERABLES Performing Organization Address City/State/ZIP Code Phon e Number [facility] documented in this encounter Visit Diagnoses Not on filedocumented in this encounter Administered Medications Inactive Administered Medications - up to 3 most recent administrations Medication Order MAR Action Action Date Dose Rate Site lactated Ringers infusion New Bag 03/29/2018 9:21 AM EDT 100 mL/hr 100 mL/hr 100 mL/hr, Intravenous, CONTINUOUS, Starting on Tue03/29/18 at 0930, Until Tue03/29/18 at 1131, Endoscopy (Day of Procedure) documented in this encounter Active and Recently Administered Medications Times are shown in EDT. Continuous Medication Order 03/27/2018 03/28/2018 03/29/2018 lactated Ringers infusion (CANCELED) 0921 (New Bag - Provider: Aisha Garay RN)1124 (Stopped - Provider: Kush Lackey RN) 100 mL/hr, at 100 mL/hr, Intravenous, CO NTINUOUS, Starting Tue03/29/18 at 0930, Until Tue03/29/18 at 1131, Endo (Day of Procedure) PRN Medication Order 03/27/2018 03/28/2018 03/29/2018 fentaNYL 50 mcg/mL multi-dose injection (CANCELED) 1001 (Given - Provider: Christian Savage, RN)1005 (Given - Provider: Christian Savage, RN)1010 (Given - Provider: Christian Savage, RN)1014 (Given - Provider: Christian Savage, RN) ONCE PRN, Starting Tue03/29/18 at 1001, Until Tue03/29/18 at 1335, Intra- Operative (Intra-Procedure), Routine midazolam (PF) (VERSED) 1 mg/mL multi-dose injection (CANCELED) 1001 (Given - Provider: Christian Savage RN)1005 (Given - Provider: Christian Savage, RN)1010 (Given - Provider: Christian Savage, RN)1014 (Given - Provider: Christian Savage, RN) ONCE PRN, Starting Tue03/29/18 at 1001, Until Tue03/29/18 at 1335, Intra- Operative (Intra-Procedure), Routine documented in this encounter Care Teams Restaurant Hourly Team Member Relationship Specialty Start Date End Date None PCP - General 09/27/17 01/12/22 None documented as of this encounter
--- OUTSIDE RECORDS SUMMARY | 2022-04-30 01:22 | XMS_ITS | Encounter Summary ---
:1960 Author Organization [facility] [place] [address] Care Team Providers Name Role Phone None Primary Care Provider Unavailable Encounter Details Date Type Department Care Team Description 11/30/2018 Office Visit Gastroenterology at [facility] Marla Petersen, Autoimmune hepatitis [facility] [place] [address] [facility] [phone] [place] [address] Social History Tobacco Use Types Packs/Day Years Used Date Former Smoker Smokeless Tobacco: Never Used Alcohol Use Standard Drinks/Week Comments Yes 4 (1 standard drink = 0.6 oz pure alcoho l) Sex Assigned at Date Recorded Not on file documented as of this encounter Last Filed Vital Signs Vital Sign Reading Time Taken Comments Blood Pressure 116/101 11/30/2018 11:30 AM EDT Pulse 64 11/30/2018 11:30 AM EDT Temperature - - Respiratory Rate - - Oxygen Saturation 100% 11/30/2018 11:30 AM EDT Inhaled Oxygen Concentration - - Weight 82.4 kg (181 lb 9.6 oz) 11/30/2018 11:30 AM EDT Height 175.3 cm (5' 9) 11/30/2018 11:30 AM EDT Body Mass Index 26.82 11/30/2018 11:30 AM EDT documented in this encounter Progress Notes Marla Petersen MD - 11/30/2018 11:00 AM EDT Gastroenterology and Hepatology Follow Up Note Patient: Anika Reyes : 1960 Provider: Marla Petersen MD Problem List: Autoimmune Hepatitis - Diagnosed in Aug 2014, she had a liver biopsy at that time. Initially on Prednisone which was rapidly tapered requiring restarting prednisone with a slow taper and AZA (initially 50 mg, but was empirically increased to 75 mg after stopping steroids). - Repeat biopsy in 02/2016 showed treated AIH and focal bridging fibrosis. - Fibroscan 09/2017 F0-1 - Decreased AZA from 75 mg to 50 mg 11/30/2018 Dysphagia - She has history of Schatzki's ring which was dilated in 2011. - EGD 03/2018 was negative, normal esophageal biopsies Interval History: Her dysphagia is getting worse. EGD was normal with normal esophageal biopsies. She notes more symptoms with bread and red meal, but will also occur with soft food. She notes the esophagus with spasm. She reports needing to regurgitated about 50% of the time when it occurs. She notes it more in the start of meal. She cut out wine without a difference. Her liver enzymes were normal in 09/2018 except for a mild elevation in total bilirubin. Current Outpatient Medications Medication Sig Dispense Refill ??? azaTHIOprine (IMURAN) 50 mg Tablet Take 1.5 tablets by mouth daily. 45 tablet 5 ??? LORazepam (ATIVAN) 0.5 mg Tablet Take 0.5 mg by mouth every 6 hours as needed for Anxiety. ??? eszopiclone (LUNESTA) 2 mg Tablet Take 2 mg by mouth nightly as needed. ??? omeprazole (PRILOSEC OTC) 20 mg Tablet, Delayed Release (E.C.) Take 20 mg by mouth as needed. No current facility-administered medications for this visit. Vitals: 11/30/18 1130 BP: (!) 116/101 Pulse: 64 SpO2: 100% Weight: 82.4 kg (181 lb 9.6 oz) Height: 175.3 cm (5' 9) Body mass index is 26.82 kg/m??. Exam: Looks well Assessment and Plan: #1 Autoimmune hepatitis Recommend decreasing AZA to 50 mg daily today. Repeat hepatic function panel in one month. Will keepmonthly monitoring of liver enzymes for three months, if all normal, will go back to every 3 months.CBC every 6 months while on AZA. #2 Dysphagia She report a history of spasm with episodes ~3 x per week. She will trial peppermint extract and peppermint tea. If she does not respond to this therapy discussed esophageal manometry and barium swallow for further evaluation. Marla Petersen MD Section of Gastroenterology & Hepatology [address] [place] [phone] 30 minutes of this 30 minute visit was spent in discussion. Cc: None documented in this encounter Plan of Treatment Not on filedocumented as of this encounter Visit Diagnoses Diagnosis Autoimmune hepatitis documented in this encounter Care Teams Machine Stripper Cutter Relationship Specialty Start Date End Date None PCP - General 09/27/17 01/12/22 None documented as of this encounter
--- OUTSIDE RECORDS SUMMARY | 2022-04-30 01:22 | XMS_ITS | Encounter Summary ---
:1960 Author Organization [facility] Address [address] [place] [address] Care Team Providers Name Role Phone None Primary Care Provider Unavailable Encounter Details Date Type Department Care Team Description 03/29/2018 Procedure visit Gastroenterology at [facility] [place] Gastroesophageal reflux [facility] disease, [place] [address] presence not specified [phone] Social History Tobacco Use Types Packs/Day Years Used Date Former Smoker Smokeless Tobacco: Never Used Alcohol Use Standard Drinks/Week Comments Yes 4 (1 standard drink = 0.6 oz pure alcoho l) Sex Assigned at Date Recorded Not on file documented as of this encounter Progress Notes Ramona Solares RN - 03/29/2018 10:00 AM EDT Patient declined study per Dr. Petersen. documented in this encounter Plan of Treatment Not on filedocumented as of this encounter Visit Diagnoses Diagnosis Gastroesophageal reflux disease, esophag itis presence not specified documented in this encounter Care Teams Exchange Mechanic Relationship Specialty Start Date End Date None PCP - General 09/27/17 01/12/22 None documented as of this encounter
--- OUTSIDE RECORDS SUMMARY | 2022-04-30 01:22 | XMS_ITS | Encounter Summary ---
:1960 Author Organization [facility] Address [facility] [address] [place] [address] Care Team Providers Name Role Phone None Primary Care Provider Unavailable Encounter Details Date Type Department Care Team Description 06/11/2020 External Results [place] [facility] [place] Marla Petersen, [facility] [place] [address] [facility] [phone] [address] [place] [address] Social History Tobacco Use Types [...] Name Priority Date/Time Associated Diagnosis Comme nts EXTERNAL LAB CBC CMP Routine 06/02/2020 Results for this THYROID RESULTS PANEL proced ure are in the results section . documented in this encounter Results CBC / CMP / Thyroid External Results (06/02/2020) P athologist Signature Sodium 141 Potassium 4.2 Chloride 104 CO2 29 BUN 12 Creatinine 0.69 Estimated GFR >60 Glucose Lvl 90 Calcium 10.0 Total Protein 6.9 Albumin 4.4 Total Bilirubin 1 Alk Phos 50 AST 27 ALT 16 PT 11.3 INR 1.00 Historical Provider POINT OF CARE TEST ORDERABLE S documented in this encounter Visit Diagnoses Not on filedocumented in this encounter Care Teams Chart Clerk Relationship Specialty Start Date End Date None PCP - General 09/27/17 01/12/22 None documented as of this encounter
--- OUTSIDE RECORDS SUMMARY | 2022-04-30 01:22 | XMS_ITS | Encounter Summary ---
:1960 Author Organization [facility] [place] [address] Care Team Providers Name Role Phone Rhonda Oliva APRN Primary Care Provider [phone] Encounter Details Date Type Department Care Team Description 02/11/2022 Telephone Thoracic Surgery at [facility] [place] [address] Social History Tobacco Use Types Packs/Day Years Used Date Former Smoker Smokeless Tobacco: Never Used Alcohol Use Standard Drinks/Week Comments Yes 4 (1 standard drink = 0.6 oz pure alcoho l) Sex Assigned at Date Recorded Not on file documented as of this encounter Miscellaneous Notes Telephone Encounter - Christian Forde - 02/11/2022 10:01 AM EDT Faxed request for CXR images to [facility] [phone]. documented in this encounter Plan of Treatment Not on filedocumented as of this encounter Visit Diagnoses Not on filedocumented in this encounter Care Teams Strategic Sourcing Consultant Relationship Specialty Start Date End Date Rhonda Oliva APRN PCP - General General Internal Medicine 01/13/[address] [place] [address] documented as of this encounter
--- OUTSIDE RECORDS SUMMARY | 2022-04-30 01:22 | XMS_ITS | Encounter Summary ---
:1960 Author Organization [facility] [place] [address] Care Team Providers Name Role Phone None Primary Care Provider Unavailable Encounter Details Date Type Department Care Team Description 09/05/2021 TH Visit Public Health at [facility] At high risk for (TeleHealth) [facility] [place] [address] Social History Tobacco Use Types Packs/Day Years Used Date Former Smoker Smokeless Tobacco: Never Used Alcohol Use Standard Drinks/Week Comments Yes 4 (1 standard drink = 0.6 oz pure alcoho l) Sex Assigned at Date Recorded Not on file documented as of this encounter Progress Notes Mary Pettit APRN - 09/05/2021 9:30 AM EST S: I give my verbal consent for the Evusheld treatment. Ms. Anika Reyes is a 60 y.o. female with autoimmune hepatitis diagnosed 08/2014 on Azathioprine, whose GI specialist has recommended she receive pre- exposure prophylaxis for COVID-19 with Evusheld treatment. Patient is s/p 2 vaccines plus booster, last injection 02/2021. She states she tested COVID-19 negative 07/2021. Patient states she is currently feeling well, denies specifically F/C, night sweats, SAENZ, N/V/D, cough, SOB or any other symptoms. This provider discussed the risks and benefits of Evusheld (tixagevimab/cilgavimab) via telehealth (audio and video) with Ms. Reyes, highlighting the following: Evusheld was approved under Emergency Use Authorization in June 2021 for pre-exposure prophylaxis for COVID-19 in moderately to severely immunocompromised patients unlikely to have mounted a response to the COVID-19 vaccination, or are unable to receive the COVID-19 vaccination. Evusheld consists of two monoclonal antibodies administered as two or more separate intramuscular injections. Possible benefits of Evusheld include protection from COVID-19 for weeks to months. Possible risks of Evusheld include rare but severe hypersensitivity for which the patient will be monitored for 1 hour after administration of the drug; localized pain at the injection site; headache, fatigue, and cough. Additionally, Evusheld has been associated with an increased number of cardiovascular complications in a small proportion of patients. Patient advised to seek medical attention immediately if she should develop chest pain or discomfort, shortness of breath, leg swelling, or any other signs or symptoms suggestive of a cardiac event. This information reflects the content of the following fact sheet (https://www.fda.gov/media/536576/download) will be provided to the patient in the clinic. The patient understood the risks and benefits of Evusheld described above and agrees to proceed withthe administration of this drug. The patient understands that the treatment is voluntary and the alternative to receiving Evusheld isnot to receive Evusheld. The patient understands that she will sign a formal consent in the clinic. O: Physical Exam: General:?Adult female seen via Telehealth??in no distress. ??Alert and oriented, pleasant HEENT: ??Normocephalic, atraumatic. ??Sclerae anicteric, non-hemorrhagic. ??No nasal secretions Pulmonary: ??Non-labored respirations. No audible??wheezing ? Ext: ??Moves upper extremities well Skin: ??No rash seen Neuro: ??Alert and oriented to person, place, time, and situation. ??No facial droop. ??No dysarthria Psych: ??Normal affect, mood, thought, and judgement content grossly WNL ?? A: ??Appropriate candidate for Evusheld treatment gives her informed consent today ?? P: ??1. ??Tixagevimab 150 mg in 1.5 ml, 300 mg IM x 1 on 09/14/2021 ?2. ??Cilgavimab 150 mg in 1.5 ml, 300 mg IM x 1 on 09/14/2021 ?3. ??Written consent to be obtained in 5 clinic ?? I spent a total of??30??minutes with the patient, including my review of medical records prior to the visit, [id number] evaluation and counseling, clinical decision making, coordination of care and documentation. ?? Mary Pettit APRN, Infectious Disease 09/05/2021 9:30 AM documented in this encounter Plan of Treatment Not on filedocumented as of this encounter Visit Diagnoses Diagnosis At high risk for infection Other specified conditions influencing h ealth status documented in this encounter Care Teams Machinery Dismantler Relationship Specialty Start Date End Date None PCP - General 09/27/17 01/12/22 None documented as of this encounter
--- OUTSIDE RECORDS SUMMARY | 2022-04-30 01:22 | XMS_ITS | Encounter Summary ---
:1960 Author Organization [facility] [place] [address] Care Team Providers Name Role Phone None Primary Care Provider Unavailable Reason for Visit Reason Comments Medication Refill Encounter Details Date Type Department Care Team Description 09/23/2021 Refill [place] [facility] [place]la Petersen, Autoimmune hepatitis [facility] [place] [address] [facility] [phone] [place], [place] [address] Social History Tobacco Use Types [...] hepatitis documented in this encounter Care Teams Projector Operator Relationship Specialty Start Date End Date None PCP - General 09/27/17 01/12/22 None documented as of this encounter
--- OUTSIDE RECORDS SUMMARY | 2022-04-30 01:22 | XMS_ITS | Encounter Summary ---
:1960 Author Organization [facility] Address [address] [place] [address] Care Team Providers Name Role Phone None Primary Care Provider Unavailable Encounter Details Date Type Department Care Team Description 10/06/2018 External Results [place]astro[place]ology at [facility] Marla Petersen, [facility] [place] [address] [facility] [phone] [address] [place] [address] Social History Tobacco Use Types [...] Comme nts EXTERNAL LAB CBC CMP Routine 09/25/2018 Results for this THYROID RESULTS PANEL proced ure are in the results section . documented in this encounter Results CBC / CMP / Thyroid External Results (09/25/2018) P athologist Signature WBC 3.7 RBC 4.41 Hemoglobin 13.2 Hematocrit 39.9 MCV 91.0 Platelets 182 Sodium 143 Potassium 4.2 Chloride 105 CO2 28 BUN 14 Creatinine 0.72 Estimated GFR >60 Glucose Lvl 98 Calcium 9.4 Total Protein 7.0 Albumin 4.2 Total Bilirubin 1.3 Alk Phos 65 AST 25 ALT 24 Specimen (Source) Anatomical Location Collection Method / Collectio n Time Received Time / Laterality Volume 09/25/2018 Historical Provider MD POINT OF CARE TEST ORDERABLE S documented in this encounter Visit Diagnoses Not on filedocumented in this encounter Care Teams Baseball Coach Relationship Specialty Start Date End Date None PCP - General 09/27/17 01/12/22 None documented as of this encounter
--- OUTSIDE RECORDS SUMMARY | 2022-04-30 01:22 | XMS_ITS | Encounter Summary ---
:1960 Author Organization [facility] [place] [address] Care Team Providers Name Role Phone None Primary Care Provider Unavailable Encounter Details Date Type Department Care Team Description 12/07/2019 Orders Only Gastroenterology at [facility] Marla Petersen, Autoimmune hepatitis [facility] [place] [address] [facility] [phone] [place] [address] Social History Tobacco Use Types Packs/Day Years [...] hepatitis documented in this encounter Care Teams Hog Tender Relationship Specialty Start Date End Date None PCP - General 09/27/17 01/12/22 None documented as of this encounter
--- OUTSIDE RECORDS SUMMARY | 2022-04-30 01:22 | XMS_ITS | Encounter Summary ---
:1960 Author Organization [place] [address] Care Team Providers Name Role Phone Rhonda Oliva APRN Primary Care Provider [phone] Encounter Details Date Type Department Care Team Description 01/21/2022 Telephone Thoracic Surgery at [facility] Jayshree Diaz, [place] [address] Social History Tobacco Use Types Packs/Day Years Used Date Former Smoker Smokeless Tobacco: Never Used Alcohol Use Standard Drinks/Week Comments Yes 4 (1 standard drink = 0.6 oz pure alcoho l) Sex Assigned at Date Recorded Not on file documented as of this encounter Miscellaneous Notes Telephone Encounter - Jayshree Diaz, RN - 01/21/2022 11:00 AM EDT Patient is S/P upper endoscopy with dilation resulted in significant mucosal disruption with visualized muscle fibers after 18mm dilator inflation, f/u CT demonstrated mediastinal air concerning for esophageal perforation. Barium (omnipaque) esophageal swallow study did not reveal any contrast extravasation suggesting that the perforation has tenuously sealed. ?? Recommendations from Thoracic surgery: - Continue clear liquid diet and no NGT placement to ensure stability of the esophageal tear - Recommend advancing to full liquid diet and remain on this for 1 week - Follow Nutrition service recommendation in diet education and advancement - Continue BID PPI IV and PO Liquid augmentin, will need to remain on BID PPI x1 month post-discharge then return to home dose, as well as a total of 5 days of abx coverage - Follow up via telehealth in Thoracic Surgery clinic in 3 weeks with a CXR Phone call to patient to check in on her progress. Phone rings, no voicemail. Will try her again tomorrow. documented in this encounter Plan of Treatment Not on filedocumented as of this encounter Visit Diagnoses Not on filedocumented in this encounter Care Teams Hematology Specialist Relationship Specialty Start Date End Date Rhonda Oliva, [employer] PCP - General General Internal Medicine 01/13/22 [facility] [address] [address] documented as of this encounter
--- OUTSIDE RECORDS SUMMARY | 2022-04-30 01:22 | XMS_ITS | Encounter Summary ---
:1960 Author Organization [facility] [place] [address] Care Team Providers Name Role Phone Rhonda Oliva APRN Primary Care Provider [phone] Reason for Visit Reason Comments Post-op Problem Perf esophagus Auth/Cert Specialty Diagnoses / Procedures Referred By Contact Refer red To Contact Diagnoses Acute mediastinitis Cece Coello MD [facility] [place] [address] Referral ID Status Reason Start Date Expiration Date Visits Requ ested Visits Authorized [id number] 1 1 Encounter Details Date Type Department Care Team Description 01/13/2022 - [address] Sherry Cintron MD [facility] [place] [address] Acute mediastinitis 01/16/2022 Encounter [facility] [place] [address] (Primary Dx) [place] [address] [facility] Chayito Jones MD [facility] [place] [address] (work) [place] [address] Social History Tobacco Use Types Packs/Day Years [...] Mass Index 27.32 01/13/2022 7:52 PM EDT documented in this encounter Discharge Summaries Chayito Jones MD - 01/16/2022 2:20 PM EDT Inpatient - Discharge Summary Patient Name: Anika Reyes Patient Age: 61 y.o. Birthdate: 1960 Admit date: 01/13/2022 Discharge date and time: 01/16/2022 Attending Physician: Chayito Jones MD Code Status: Full Code ID: Anika Reyes is a 61 y.o. female with PMH of??autoimmune hepatitis and a distal esophageal??Schatzki's ring, who presented to the ER following upper endoscopy with dilation due to concern for esophageal microperforation or perforation in region of GE junction based upon CT with PO contrast dem onstrating free air in mediastinum, peritoneum, and retroperitoneum. Follow-up Recommendations for Providers: ?? Please ensure patient does not have any worsening dysphagia, discomfort, hemoptysis, or any otherconcerning symptoms. ?? FYI - Patient is recommended to have full liquids x 1 week, purees x 1 week, then soft solids x 1week. She was taught about these diets by nutrition with all questions answered. ?? Understanding the risk/benefit trade off and after reviewing concerning symptoms above and recommending seeking emergent medical attention if present, patient instructed to resume azathioprine on discharge. ?? Patient was advised via telephone discussion after discharge to ensure she obtains capsule form of omeprazole and opens the capsules to sprinkle contents in full liquid diet until cleared by thoracic surgery to resume pills. Patient should continue increased dose of omeprazole 40 mg BID for at least 1 month, then may resume previous home maintenance dose (omeprazole 20 mg daily). ?? Please ensure patient completes total 5 days of antibiotics with augmentin (finishes with 01/18 morning dose of augmentin). She noted mild loose stools (1- 2x/day) while inpatient upon starting antibiotics. Please ensure resolution of GI symptoms with completion of antibiotics. ?? Please ensure patient follows up with thoracic surgery (telehealth ok) in 3 weeks (around 02/08) with CXR PA/Lat around that time. ?? Patient already scheduled for GI follow up with DR. Petersen on 01/25 New Medications: augmentin (finishes on 01/18) Medications Stopped: none New dosing of prior medications: Omeprazole 20 mg qd -> 40 mg BID PENDING LABS: No current labs Discharge Diagnoses (Hospital Problems) and Secondary Diagnoses (Chronic Problems): Active Hospital Problems Diagnosis ??? Acute mediastinitis Resolved Hospital Problems No resolved problems to display. There are no active non-hospital problems to display for this patient. Procedures: 01/13/2022 EGD History of Presentation (per 01/13/2022 Admission H&P): Anika Reyes??is a??61 y.o.??female??with PMH of??autoimmune hepatitis on azathioprine and a distal esophageal??Schatzki's ring, who presented to the ER following upper endoscopy with dilation dueto concern for esophageal perforation. ?? Patient underwent??EGD for worsening dysphagia on 01/13/22. She was found to have non-obstructing Schatzki ring and underwent??endoscopic dilation which resulted in significant mucosal disruption and deep rent. GI initially wanted to order esophagram but she refused it due to claustrophobia. As thus, she had CT with oral contrast which showed free air in the mediastinum??peritoneum and retroperitoneum, suggesting microperforation or perforation in region of GE junction. Case was discussed with thoracic surgery who recommended barium (omnipaque) esophageal swallow study which did not reveal any contrast extravasation suggesting that the perforation has tenuously sealed. At that point, thoracic surgery recommended admission to medicine, NPO for 48 hrs, IVF, broad spectrum antibiotics, as well as PPIBID ?? Patient states that she underwent EGD multiple times in the past without any complications. Reports having worsening dysphagia since her last endoscopy a few years ago. States that she tries to avoid particular food that triggers esophageal spasm, and dysphagia such as dry and spicy food. States that she read in the literature that chocolate and alcohol can trigger it so she stopped them for 3 weeks but did not notice any improvement. As thus, she still eats chocolate and drinks a glass of wine every night. Endorses associated vomiting. Denies any weight loss as she is usually able to return to complete her lunch or dinner after these episodes of esophageal spasm. Denies having any issues with liquid diet. Denies fevers, chills, chest pain, shortness of breath, cough, presyncope or syncope. Denies nausea, vomiting, abdominal pain, bowel or urinary habit changes. Denies smoking, and illicit drug use. ?? Hospital Course: Anika Reyes was admitted to the Medicine Service on 01/13/2022 in stable condition. #Dysphagia requiring endoscopic dilation??c/b esophageal perforation GI and thoracic surgery were consulted and per their recommendations, patient was kept strict??NPO for 48 hours and started on IV vancomycin/piperacillin- tazobactam. She fortunately remained asymptomatic. On the afternoon of 01/15 given stable clinical status, patient was started on clear liquid diet which she tolerated well. On 01/16 she was advanced to full liquid diet and tolerated this well prior to discharge. Antibiotics were transitioned to liquid augmentin on evening of 01/15 which she toleratedwithout issues and was discharged on to complete total 5 day course of antibiotics (completes on 01/18) per GI/thoracic surgery recommendations. Her PPI was increased to PPI BID and switched to capsule form to allow for her to empty contents of capsule into modified liquid diet. She is recommended to remain on increased dose of PPI for 1 month before decreasing back to prior maintenance dose. She was seen by nutrition consult for modified diet education (full liquids, puree, soft) with plan for 1 week of full liquids, 1 week puree diet, and then 1 week soft diet. ?? #History of autoimmune hepatitis Azathioprine was temporarily held during the admission in above context. In discussion with thoracicsurgery and with patient at time of discharge, in weighing risk/benefit trade off, patient advised she was ok to resume azathioprine on discharge while continuing to closely monitor for any new/worsened symptoms to suggest complications of healing esophageal perforation. Important Studies and Lab Data: Recent Labs 01/15/22 0901/13/221999 WBC 5.1 5.6 HGB 12.4 12.9 HCT 35.8 38.1 PLATELET 170 182 Recent Labs 01/15/22 0940 01/13/221999 NA 139 140 K 3.9 4.0 CL 105 105 CO2 21* 24 BUN 13 9 CREATININE 0.87 0.83 Recent Labs 01/13/221999 BILITOT 1.2 AST 21 ALT 11 ALKPHOS 52 No results for input(s): INR, PTT in the last 168 hours. Microbiology: Microbiology Results (Last 30 days) No results found for the last 720 hours. Pertinent radiology/diagnostic studies: Results for orders placed or performed during the hospital encounter of 01/13/22 XR Fluoro Barium Swallow (Single Contrast) (Exam End: 01/13/2022 8:56 PM) Impression No fluoroscopically evidence of esophageal leak present. Preliminary report signed by: Hola Lee at 01/13/2022 9:01 PM I have personally reviewed the image(s) and the resident's interpretation and agree with the findings, Duong Burns MD at 01/13/2022 9:03 PM Thank you for letting us participate in the care of this patient. If you are a health care provider and have any questions regarding this report, please contact the number below. For patients who have questions please contact the health acute care registered nurse that requested your imaging first. Electronically signed by: Duong Burns MD, [facility] ([phone]), at 01/13/2022 9:03 PM Discharge Conditions/Prognosis: Stable; Good Functional and Cognitive Status: Upon discharge the patient is hemodynamically stable, fully ambulatory without requiring supplemental oxygen, afebrile and pain free. Discharge to: home without services Discharge Medications: Your Medications New Medications Dose Details amoxicillin-clavulanate 600-42.9 mg/5 mL Susr Commonly known as: Augmentin-ES Take 7.3 mLs by mouth every 12 hours for 2 days. 875 mg Quantity: 29.2 mL Refills: 0 Continued medications with new dosing Dose Details azaTHIOprine 50 mg Tab Commonly known as: Imuran Take 1 tablet by mouth daily. What changed: when to take this 50 mg Quantity: 90 tablet Refills: 0 omeprazole 40 mg Cpdr Commonly known as: PriLOSEC Take 1 capsule by mouth 2 times daily. Resume taking previous once daily dose in 1 month (around 02/16/2022) What changed: additional instructions 40 mg Quantity: 60 capsule Refills: 0 Continued medications, unchanged Dose Details eszopiclone 2 mg Tab Commonly known as: LUNESTA Take 2 mg by mouth nightly as needed. 2 mg Refills: 0 LORazepam 0.5 mg Tab Commonly known as: Ativan Take 0.5 mg by mouth as needed for Anxiety (prior to procedures). 0.5 mg Refills: 0 STOPPED Medications omeprazole 20 mg Tbec Commonly known as: PriLOSEC OTC ondansetron ODT 4 mg Tbdl Commonly known as: Zofran-ODT Updated Allergies/ADRs: Allergies Allergen Reactions ??? Epinephrine Faints Instructions Given to Patient at Discharge: Patient Instructions Instructions after leaving the hospital Why you were hospitalized: esophageal perforation after endoscopy Call your doctor or seek medical attention if you develop the following: chest pain, shortness of breath, feeling dizzy upon standing, passing out, diarrhea, constipation lasting longer than 2 days, fevers (temperature over 100.3), chills, abdominal pain, vomiting, difficulty or discomfort when urinating, bloody or black bowel movements, or any other acute or concerning symptom. Specific instructions related to your condition: Activity level: as tolerated Diet: full liquids x 1 week, purees x 1 week, then soft solids x 1 week. Increase omeprazole to 40 mg twice daily for 1 month, then you can decrease to previous home dose of20 mg once daily thereafter. Important Medication changes (Please see medication list for full list of medications at time of discharge): - Please take liquid augmentin twice daily starting with evening dose today for 4 more doses (finishwith morning dose on 01/18). Follow-Up Appointments Future Appointments Date Time Provider Department Center 01/25/2022 9:30 AM Marla Petersen MD [facility] GASTRO [facility] Please schedule a hospital follow up appointment with your primary care doctor in the next week or two. Our schedulers will work on contacting their office to schedule an appointment and will be in touch with you to coordinate. Thoracic surgery will be in contact with you to schedule a follow up appointment and chest xray in 3weeks. Please contact their department if you do not hear from them. Your Inpatient Doctor(s) at [facility]: SHERRY GARCIA MUHAMMAD LASCALA, LEAH R For questions regarding issues relating to your hospitalization on the Hospital Medicine Service, please contact your inpatient physician through the [facility] Nematology Teacher [phone]. Issues after hours and on weekends will be handled by the Hospitalist staff on-call. Your Primary Care Provider Rhonda Oliva APRN [phone] General Instructions None Future Appointments and Orders Future Appointments and Orders Future Appointments Provider Department Dept Phone 01/25/2022 9:30 AM Marla Petersen MD Gastroenterology at [facility] Arrive at: Home [phone] To view instructions for your video visit, click here, or visit this website: [email or web address] If you have not previously downloaded the icix patient portal software, Gigturn, or the IPXI varinder, please do so by clicking one of these links below or searching in your device's varinder store. For all desktops/laptops; for Android devices; for Apple/iOS devices FAQs: Join Video Visit button not connecting? - This may be due to pop-up blockers. - Click this link to see: How to Disable Pop-Up Block for myD-H Video Visits Zoom asking for a meeting password? - Exit out of the Zoom program and try the link again Provider Contact Information: Rhonda Culver Hazel, PROJECT FINANCE ANALYST [address] [place] [address] Discharge References/Attachments: Discharge References/Attachments None documented in this encounter Discharge Instructions Patient InstructionsWuChayito MD - 01/16/2022 12:26 PM EDT Instructions after leaving the hospital Why you were hospitalized: esophageal perforation after endoscopy Call your doctor or seek medical attention if you develop the following: chest pain, shortness of breath, feeling dizzy upon standing, passing out, diarrhea, constipation lasting longer than 2 days, fevers (temperature over 100.3), chills, abdominal pain, vomiting, difficulty or discomfort when urinating, bloody or black bowel movements, or any other acute or concerning symptom. Specific instructions related to your condition: Activity level: as tolerated Diet: full liquids x 1 week, purees x 1 week, then soft solids x 1 week. Increase omeprazole to 40 mg twice daily for 1 month, then you can decrease to previous home dose of20 mg once daily thereafter. Important Medication changes (Please see medication list for full list of medications at time of discharge): - Please take liquid augmentin twice daily starting with evening dose today for 4 more doses (finishwith morning dose on 01/18). Follow-Up Appointments Future Appointments Date Time Provider Department Center 01/25/2022 9:30 AM Marla Petersen MD [facility] Please schedule a hospital follow up appointment with your primary care doctor in the next week or two. Our schedulers will work on contacting their office to schedule an appointment and will be in touch with you to coordinate. Thoracic surgery will be in contact with you to schedule a follow up appointment and chest xray in 3weeks. Please contact their department if you do not hear from them. Your Inpatient Doctor(s) at [facility]: SHERRY GARCIA MUHAMMAD LASCALA, LEAH R For questions regarding issues relating to your hospitalization on the Hospital Medicine Service, please contact your inpatient physician through the [facility] Nematology Teacher [phone]. Issues after hours and on weekends will be handled by the Hospitalist staff on-call. Your Primary Care Provider Rhonda Oliva, PROJECT FINANCE ANALYST [phone] documented in this encounter Medications at Time [...] Suspension for hours for 2 days. Reconstitution documented as of this encounter Progress Notes Cydney Martin RN - 01/16/2022 2:24 PM EDT 1420: Pt discharged to home via w/c with and with all personal belongings. Pt verbalizes understanding re: all discharge instructions. Scripts called into pt's pharmacy, pt aware. Chayito Jones MD - 01/16/2022 2:20 PM EDT Hospital Medicine - Attending Day of Discharge Documentation Discharge diagnosis Active Hospital Problems Diagnosis ??? Acute mediastinitis Resolved Hospital Problems No resolved problems to display. Secondary Issues There are no active non-hospital problems to display for this patient. I have personally seen and examined the patient and they are ready for discharge. I spent >30 minutes (Day of Discharge Code 11003) involved in the final examination of the patient, discussion of the hospital stay, instructions for continuing care to all relevant caregivers, and preparation of discharge records, prescriptions and referral forms. Plans ? Discharge to home ? Follow-up scheduled with GI, pending follow up to be scheduled with PCP and thoracic surgery ? Please see the Discharge Summary for complete details of any medication changes and additional plans. Son Plummer MD - 01/16/2022 9:13 AM EDT Images from the original note were not included. DIVISION OF GASTROENTEROLOGY & HEPATOLOGY CONSULT PROGRESS NOTE NAME: Anika Reyes : 1960 INTERVAL: - Diet advanced to clear liquids yesterday, tolerated well - No other acute complaints - Now on oral abx, PPI BID Past Medical, Surgical, Family, Social Histories unchanged from initial consult note MEDICATIONS Medication list personally reviewed Current Meds: Scheduled: ??? amoxicillin-clavulanate 875 mg Oral Q12H ??? sodium chloride 0.9 % (flush) 5 mL Intravenous BID ??? enoxaparin 40 mg Subcutaneous Nightly ??? pantoprazole 40 mg Intravenous BID PRN: sodium chloride 0.9 % (flush), LORazepam Allergies Allergen Reactions ??? Epinephrine Faints OBJECTIVE Vitals: T Temp: [36.3 ??C (97.4 ??F)-37 ??C (98.6 ??F)] HR Heart Rate: -- BP BP: (132-141)/(68-76) RR Resp: [18] SpO2 SpO2: [97 %-99 %] IO 01/14 0701 - 01/15 0700 In: 2667.7 [I.V.:2521] Out: 775 [Urine:775] Wt Last 83.9 kg (185 lb) Admit 83.92 kg Physical Exam: CONST: Awake, alert, no acute distress EYES: sclerae anicteric ENT: moist mucous membranes, no oral thrush RESP: normal RR, air entry equal bilaterally, no rales/rhonchi CARDIAC: RRR, normal S1/S2, no appreciable murmurs GI: abdomen soft, non-tender, non-distended, normoactive bowel sounds, tympanic to percussion MSK: legs warm, palpable pulses b/l, no significant edema SKIN: No jaundice, rash, or bruising NEURO: Grossly intact, moves all extremities PSYCH: Pleasant, appropriate affect Labs: Labs personally reviewed in eDH CBC: Recent Labs 01/15/2293901/13/221999 WBC 5.1 5.6 HGB 12.4 12.9 PLATELET 170 182 MCV 89.1 86.8 RDWCV 13.2 13.2 COAG: No results for input(s): PTT, INR, PT in the last 168 hours. CHEM: Recent Labs 01/15/2293901/13/221999 CREATININE 0.87 0.83 BUN 13 9 NA 139 140 K 3.9 4.0 CL 105 105 CO2 21* 24 CALCIUM 9.1 9.3 HEPATIC: Recent Labs 01/13/221999 BILITOT 1.2 ALKPHOS 52 AST 21 ALT 11 ALBUMIN 4.4 IMAGING: Reports and images personally reviewed in eDH. Images independently interpreted. XR Fluoro Barium Swallow (Single Contrast) Final Result No fluoroscopically evidence of esophageal leak present. Preliminary report signed by: Hola Lee at 01/13/2022 9:01 PM I have personally reviewed the image(s) and the resident's interpretation and agree with the findings, Duong Burns MD at 01/13/2022 9:03 PM Thank you for letting us participate in the care of this patient. If you are a health care provider and have any questions regarding this report, please contact the number below. For patients who have questions please contact the health acute care registered nurse that requested your imaging first. Electronically signed by: Duong Burns MD, [facility] ([phone]), at 01/13/2022 9:03 PM ENDOSCOPY: Reports and images personally reviewed in eDH EGD (01/13/22): Findings: ?Esophagogastric landmarks were identified: the Z-line ?was found at 37 cm, the upper extent of the gastric ?folds was found at 37 cm and the site of hiatal ?narrowing was found at 39 cm from the incisors. ?A non-obstructing Schatzki ring was found at the ?gastroesophageal junction. A TTS dilator was passed ?through the scope. Dilation with a 15-16.5-18 mm ?balloon dilator was performed to 18 mm. The dilation ?site was examined and showed significant mucosal ?disruption with a rent. ?A 2 cm hiatal hernia was present. ?The entire examined stomach was normal. ?The examined duodenum was normal. Impression: ?- Esophagogastric landmarks ?identified. ?- Non-obstructing Schatzki ring. ?Dilated. ?- 2 cm hiatal hernia. ?- Normal stomach. ?- Normal examined duodenum. ?- No specimens collected. EGD (03/2018): Findings: ?Esophagogastric landmarks were identified: the Z-line ?was found at 38 cm, the upper extent of the gastric ?folds was found at 39 cm and the site of hiatal ?narrowing was found at 42 cm from the incisors. ?A 4 cm hiatal hernia was present. ?The examined esophagus was normal. Biopsies were ?taken with a cold forceps for histology. Estimated ?blood loss: none. ?Multiple less than 5 mm sessile fundic gland polyps ?were found in the gastric body. ?The examined duodenum was normal. Impression: ?- Esophagogastric landmarks ?identified. ?- 4 cm hiatal hernia. ?- Normal esophagus. Biopsied. ?- Multiple fundic gland polyps. ?- Normal examined duodenum. ASSESSMENT & PLAN: Ms. Reyes is a 61/F w/ hx of Elicia WONG ring adm 01/13 from EGD for dilatation (balloon dilatation to 15-16.5-18mm) with creation of a mucosal rent. Post-procedure CT (01/13) with mediastinal air c/f perforation. Swallow study (01/13) without evidence of ongoing perforation. Now tolerating clear liquid diet well. Appreciate thoracic surgery and medicine care. Likely discharge today to complete abx course, PPI BID. OK for full liquid diet upon discharge. Thoracics planning outpatient F/U with repeat plain film in next few weeks. Patient has GI follow-up on 01/[address] Petersen. Patient seen with Dr. Plummer. Thank you for involving us in the care of this patient. Cal Barriga MD PGY-6, Gastroenterology I have seen and evaluated the patient with Dr Barriga. I have reviewed the resident/fellow's history during the encounter and I agree with the details as written above. My physical examination confirms the above findings. The assessment and plan were formulated in discussion with me at the time of the e ncounter and I agree with them as documented. Italia Dias RN - 01/16/2022 6:53 AM EDT Illness Severity [x] Stable [] Watcher [] Unstable Patient Summary Reason for admission: s/p upper endoscopy with dilation, muscle fibers visualized after dilator inflation; mediastinal air concerning for esophageal perforation. Relevant PMH: autoimmune hepatitis and a distal esophageal Schatzki's ring Significant 24 hour events: 01/15 PM: VSS on RA. Denies chest pain, SOB, nausea. No complaints of pain. PRN 0.5 sublingual ativanadministered per patient request. Patient endorsing difficulty falling asleep, darkened room; provided ear plugs. paged, 1x repeat 0.5 ativan administered with good effect. Patient refused labs fromphleb, team made aware. Patient refused night lovenox stating I move around and flex me feet all the time; paged. PO Augmentin administered. Patient resting between care. Most recent weight: Weight: 83.9 kg (185 lb) (01/13/221951) Action List PO Augmentin Clear liquid diet AM labs? Discharge Plan: today? Home meds in Rx [] Belongings in safe [] Consults: PT [] OT [] BLANKBOOK FORWARDER [] Last Flu vaccine: Last Covid Test Result: Rosalind Ramos RN - 01/15/2022 6:58 PM EDT Illness Severity [x] Stable [] Watcher [] Unstable Patient Summary Reason for admission: s/p upper endoscopy with dilation, muscle fibers visualized after dilator inflation; mediastinal air concerning for esophageal perforation. Relevant PMH: autoimmune hepatitis and a distal esophageal Schatzki's ring Significant 24 hour events: 01/15/22AM: Pt A+Ox4, VSS on RA. Denies pain, SOB, N/V. IVF DC per order. Transitioned to clear liquid diet, tolerated same well. Hygenic needs met with Spouse's assistance per Pt's request. Ambulates hallway intermittently with nil distress. Resting between care. Action List Activity as tolerated Clears liquids Yolanda Monroe MD - 01/15/2022 6:45 PM EDT Hospital Medicine Attending Daily Progress Note Admit Date: 01/13/2022 Hospital Day 2 days Active Hospital Problems Diagnosis ??? Acute mediastinitis Resolved Hospital Problems No resolved problems to display. PMH There are no active non-hospital problems to display for this patient. Inpatient Medications: Scheduled ??? amoxicillin-clavulanate 875 mg Oral Q12H ??? sodium chloride 0.9 % (flush) 5 mL Intravenous BID ??? enoxaparin 40 mg Subcutaneous Nightly ??? pantoprazole 40 mg Intravenous BID Continuous infusions: PRN: sodium chloride 0.9 % (flush), LORazepam Interval History: - No acute events overnight - Remains strict NPO - Continues on vancomycin and zosyn - Feels well today - has been up walking this morning and feels more energetic - No complaints or symptoms - Hopeful for diet advancement and discharge home soon ROS: Denies fever, chills, n/v, abdominal pain, chest pain, dyspnea. Physical Exam Vitals Range last 24 hrs Temperature Temp: [36.3 ??C (97.4 ??F)-36.9 ??C (98.4 ??F)] Heart Rate Heart Rate: -- Blood Pressure BP: (134-141)/(68-76) Respiratory Rate Resp: [18] SpO2 SpO2: [97 %-99 %] Intake/Output Summary (Last 24 hours) at 01/15/2022 1845 Last data filed at 01/15/2022 0800 Gross per 24 hour Intake 2667.7 ml Output 695 ml Net 1972.7 ml Patient Vitals for the past 168 hrs: Weight 01/13/221951 83.9 kg (185 lb) Body mass index is 27.32 kg/m??. Gen: Well appearing, sitting upright in bed, NAD, awake and conversant PERRL: NC/AT, anicteric, MMM, no crepitus CV: RRR, no murmur Pulm: CTAB, normal WOB Abd: Soft, NT, ND, +BS Ext: No edema, warm Neuro: Alert, oriented x4, no focal deficits Studies reviewed in eDH. Remarkable for the following: LABS: Last 3 wbc, hgb, hct plt Recent Labs 01/15/2240 01/13/221999 WBC 5.1 5.6 HGB 12.4 12.9 HCT 35.8 38.1 PLATELET 170 182 Last 3 Lytes Recent Labs 01/15/22 0940 01/13/221999 NA 139 140 K 3.9 4.0 CL 105 105 CO2 21* 24 BUN 13 9 CREATININE 0.87 0.83 Last 3 LFTs Recent Labs 01/13/22199907/29/21 0000 AST 21 28 ALT 11 20 ALKPHOS 52 58 BILITOT 1.2 0.7 Last Ca, Mg, Phos Recent Labs 01/15/22 0940 CALCIUM 9.1 FSBG Trend No results for input(s): POCGLU in the last 72 hours. MICRO: No results for input(s): URINECULTURE in the last 720 hours. No results for input(s): GRAMSTAIN, BFCX, LOWERRESPCX, TISSUECX in the last 720 hours. No results for input(s): BLOODCX in the last 720 hours. ECG: No results for input(s): DIAGLINE, QTCCALC in the last 720 hours. VASCULAR: No results for input(s): VBTEXTRPT in the last 720 hours. IMAGING: XR Fluoro Barium Swallow 01/13 No fluoroscopically evidence of esophageal leak present. Assessment: Anika Matos Eric??is a??61 y.o.??female??with PMH of??autoimmune hepatitis and a distal esophageal??Schatzki's ring who presented to the ER following upper endoscopy with dilation due to concern for esophageal perforation. CT with oral contrast which showed free air in the mediastinum??peritoneum and retroperitoneum, suggesting microperforation or perforation in region of GE junction. Case was discussed with thoracic surgery who recommended barium (omnipaque) esophageal swallow study which did not reveal any contrast ext ravasation suggesting that the perforation has tenuously sealed. She continues on strict NPO status,mIVF, IV abx, and IV PPI BID per thoracic surgery and GI recommendations. She remains clinically stable and plan to advance diet to clears this afternoon; if tolerating can further advance to full liquid diet tomorrow which will be continued for 1 week. Plan: #Dysphagia requiring endoscopic dilation c/b esophageal perforation -Appreciate GI and thoracic surgery recommendations -Strict NPO for 48 hours. No NGT placement to ensure stability of the esophageal tear. -Advance to clear liquid diet this afternoon, if tolerating can advance to full liquid tomorrow and remain on this for 1 week -Continue LR @125 cc/h while NPO -Transition from IV vancomycin/zosyn to PO liquid augmentin with plan for total 7 days abx -IV PPI BID -Nutrition consult for modified diet education (full liquids, puree, soft) -CBC, and BMP daily ?? #History of autoimmune hepatitis -Hold home azathioprine for now; okay per GI #Anxiety -SL ativan 0.5 mg q8h PRN ?? #Routine Diet: Strict NPO for 48 hrs, advance to clears this afternoon IVF: LR @125 cc/h GI PPx: PPI BID DVT PPx: Lovenox Code status: Full code Team Pager( Coverage 24/01): [phone] PCP: Rhonda Oliva, PROJECT FINANCE ANALYST [phone] Attestation: IPI Certification I certify that I am a [facility] credentialed attending provider with admitting privileges and that the patient meets or has met medical necessity to require an inpatient IPI level of care meeting a minimum of two midnights or is on the [facility] inpatient only procedure list (status C) due to: esophageal perforation requiring IV antibiotics, IV fluids, and close monitoring Yolanda Monroe MD 01/15/[address] - 01/15/2022 2:24 PM EDT Nutrition Services Note - Low Nutrition Acuity Anika Reyes is a 61 y.o. female Reason for intervention: education and consult - esophageal tear s/p NPO to CLD, will advance to full liquids, puree, and soft solids each week. May need outpatient follow up for education and diet advancement. Nutrition Plan: Nutrition education and written materials, including sample menus, provided for 1 week of full liquid diet, 1 week of pureed diet and 1 week of soft diet. Questions answered. RD contact information provided for additional questions. Active Orders Diet Clear Liquid Frequency: Effective Now Number of Occurrences: Until Specified Admit Weight: 83.92 kg Estimated body mass index is 27.32 kg/m?? as calculated from the following: Height as of this encounter: 175.3 cm (5' 9). Weight as of this encounter: 83.9 kg (185 lb). Wt Readings from Last 5 Encounters: 01/13/22 83.9 kg (185 lb) 01/13/22 83.9 kg (185 lb) 11/30/18 82.4 kg (181 lb 9.6 oz) 03/29/18 74.8 kg (165 lb) 09/27/17 82.4 kg (181 lb 9.6 oz) Weight loss: none Appetite: Good (50%-75%) Food allergies:no known food allergies Chewing/Swallowing difficulty: none Nausea/Vomiting: no nausea and no vomiting Last Bowel Movement: 01/15/22 Patient education / questions: provided diet order education and patient with good understanding, written education and contact information provided and all nutrition related questions answered at thistime Nutrition services to follow weekly through hospital course unless consulted in the interim. Dionne Doty RD Pager: [phone] Joaquin Mendez MD - 01/15/2022 12:14 PM EDT Images from the original note were not included. DIVISION OF GASTROENTEROLOGY & HEPATOLOGY CONSULT PROGRESS NOTE NAME: Anika Reyes : 1960 INTERVAL: - GI following for post EGD, and possible small perforation - She is doing well this morning and has minimal pain. She is to be started on clears today to see how she tolerates this. She is eager to be DCed home soon. - AF, HDS, WNL - Labs unremarkable Past Medical History, Surgical History, Family History, Social History as noted in initial consult note MEDICATIONS: Scheduled: ??? sodium chloride 0.9 % (flush) 5 mL Intravenous BID ??? enoxaparin 40 mg Subcutaneous Nightly ??? piperacillin-tazobactam 3.375 g Intravenous Q8H ??? pantoprazole 40 mg Intravenous BID ??? vancomycin 1 g Intravenous Q12H Drips: ??? lactated Ringers 125 mL/hr (01/15/22 1007) PRN: sodium chloride 0.9 % (flush), lidocaine, LORazepam, [COMPLETED] vancomycin AND Vancomycin Level- MAR Order Reminder Allergies Allergen Reactions ??? Epinephrine Faints VITALS: T Temp: [36.3 ??C (97.4 ??F)-37 ??C (98.6 ??F)] HR Heart Rate: -- BP BP: (132-141)/(73-76) RR Resp: [18] SpO2 SpO2: [97 %-98 %] 01/14 0701 - 01/15 0700 In: 2667.7 [I.V.:2521] Out: 775 [Urine:775] Wt Last 83.9 kg (185 lb) Admit 83.92 kg PHYSICAL EXAM: GEN: Awake, alert, no acute distress HEENT: sclerae anicteric, moist mucous membranes RESP: CTAB CARDIAC: RRR, normal S1/S2, no appreciable murmurs ABDOMEN: Soft, non-tender, non-distended, normoactive bowel sounds EXTREM: Warm, no edema NEURO: Grossly intact, moves all extremities SKIN: No jaundice LABS: CBC: Recent Labs 01/15/2293901/13/221999 WBC 5.1 5.6 HGB 12.4 12.9 HCT 35.8 38.1 PLATELET 170 182 MCV 89.1 86.8 RDWCV 13.2 13.2 COAG: No results for input(s): PTT, INR in the last 168 hours. CHEM: Recent Labs 01/15/2293901/13/221999 GLUCOSE 70 91 NA 139 140 K 3.9 4.0 CL 105 105 CO2 21* 24 BUN 13 9 CREATININE 0.87 0.83 ALBUMIN -- 4.4 CALCIUM 9.1 9.3 HEPATIC: Recent Labs 01/13/221999 ALKPHOS 52 ALT 11 AST 21 BILITOT 1.2 INFLAMM: No results for input(s): CRP in the last 168 hours. Invalid input(s): ESR IMAGING: Images and reports personally reviewed in eDH XR Fluoro Barium Swallow (Single Contrast) Final Result No fluoroscopically evidence of esophageal leak present. Preliminary report signed by: Hola Lee at 01/13/2022 9:01 PM I have personally reviewed the image(s) and the resident's interpretation and agree with the findings, Duong Burns MD at 01/13/2022 9:03 PM Thank you for letting us participate in the care of this patient. If you are a health care provider and have any questions regarding this report, please contact the number below. For patients who have questions please contact the health acute care registered nurse that requested your imaging first. Electronically signed by: Duong Burns MD, [facility] ([phone]), at 01/13/2022 9:03 PM ASSESSMENT & PLAN: Anika Reyes is a 61 y.o. F w/PMH of AIH, MONICA, GERD, and Hx of Schatzki ring s/p dilation who wasseen yesterday for EGD w/dilation with significant disruption in the esophageal mucosa c/f possible perforation. Followup CT showed free air in the mediastinum, although contrast study did not show evidence of leak suggesting healing of the mucosa at least for now. We avoided repeat endoscopy to avoidexacerbating the area, and she has improved well. She is going to trial clears today with possible DC pending. ?? Recommendations: - Clears today - IV PPI BID Patient seen with Dr. Lloyd. Joaquin Mendez MD PGY-5, Gastroenterology Associated attestation - Luis Miguel Lloyd MD - 01/15/2022 3:41 PM EDT I have independently seen and examined the patient, and have reviewed the resident???s above note, and agree with the documented history, physical findings, and study results; my evaluation of the patient is below: I met with Ms Reyes this morning in follow up. She was sitting comfortably bedside, reasonable for clear liquids this afternoon. MD Juanpablo Daley Jessica M, RN - 01/15/2022 5:08 AM EDT Patient Summary Reason for admission: s/p upper endoscopy with dilation, muscle fibers visualized after dilator inflation; mediastinal air concerning for esophageal perforation. Significant 24 hour events: A&Ox4, skin pink and warm, VSS. Denies chest pain, SOB, N/V. Refusedlovenox overnight, MD aware, educated on importance of DVT ppx. LR mIVF at 125 mL/hr. IV Abx. Sublingual Ativan for anxiety. Strict NPO. No acute events. Will ring appropriately. Action List IVF & IV abx STRICT NPO No PO meds Clears 01/15 Sherry Mccray RN - 01/14/2022 6:34 PM EDT Patient Summary Reason for admission: s/p upper endoscopy with dilation, muscle fibers visualized after dilator inflation; mediastinal air concerning for esophageal perforation. Relevant PMH: autoimmune hepatitis and a distal esophageal Schatzki's ring Significant 24 hour events: - EGD showed significant mucosal disruption with a tear. Barium swallow without evidence of esophageal leak 01/14 AM: strict NPO, pt denied pain, IVF & IV abx. Sublingual ativan for c/o anxiety. Pt reported feeling better & able to sleep for 3 hours. GI to bedside & allow mouth swabs. Pt verbalized understanding to not drink any h2o. Pt states wanting to go home as soon as possible. VSS Most recent weight: Weight: 83.9 kg (185 lb) (01/13/221951) Action List IVF & IV abx STRICT NPO No PO meds Clears 01/15 documented in this encounter H&P Notes Cece Coello MD - 01/14/2022 12:13 AM EDT Inpatient Hospital Medicine - Admission Note Problem List: Active Hospital Problems Diagnosis ??? Acute mediastinitis Resolved Hospital Problems No resolved problems to display. There are no active non-hospital problems to display for this patient. History of Present Illness: Anika Reyes is a 61 y.o. female with PMH of autoimmune hepatitis on azathioprine and a distal esophageal Schatzki's ring, who presented to the ER following upper endoscopy with dilation due to concern for esophageal perforation. Patient underwent EGD for worsening dysphagia on 01/13/22. She was found to have non-obstructing Schatzki ring and underwent endoscopic dilation which resulted in significant mucosal disruption and deeprent. GI initially wanted to order esophagram but she refused it due to claustrophobia. As thus, shehad CT with oral contrast which showed free air in the mediastinum peritoneum and retroperitoneum, suggesting microperforation or perforation in region of GE junction. Case was discussed with thoracic surgery who recommended barium (omnipaque) esophageal swallow study which did not reveal any contrast extravasation suggesting that the perforation has tenuously sealed. At that point, thoracic surgery recommended admission to medicine, NPO for 48 hrs, IVF, broad spectrum antibiotics, as well as PPI BID Patient states that she underwent EGD multiple times in the past without any complications. Reports having worsening dysphagia since her last endoscopy a few years ago. States that she tries to avoid particular food that triggers esophageal spasm, and dysphagia such as dry and spicy food. States that she read in the literature that chocolate and alcohol can trigger it so she stopped them for 3 weeks but did not notice any improvement. As thus, she still eats chocolate and drinks a glass of wine every night. Endorses associated vomiting. Denies any weight loss as she is usually able to return to complete her lunch or dinner after these episodes of esophageal spasm. Denies having any issues with liquid diet. Denies fevers, chills, chest pain, shortness of breath, cough, presyncope or syncope. Denies nausea, vomiting, abdominal pain, bowel or urinary habit changes. Denies smoking, and illicit drug use. ?? Review of Systems: Negative except as noted above ED course: -Vital signs remarkable for hypertension 164/78 -Lab tests: CBC, BMP, and LFT unremarkable -CT Chest w Contrast ??IMPRESSION Extensive mottled free air extending from the lower neck soft tissues, the mediastinum, peritoneum and retroperitoneum, compatible with an esophageal perforation. -XR Fluoro Barium Swallow IMPRESSION No fluoroscopically evidence of esophageal leak present. -Management: Vancomycin 2 g IV, Zosyn 4.5 g IV, diazepam 5 mg IV, Protonix 40 mg IV Past Medical and Surgical History: No past medical history on file. Past Surgical History: Procedure Laterality Date ??? PRO UPPER GI ENDOSCOPY, BIOPSY N/A 03/29/2018 EGD WITH BIOPSY (WRVU 2.49) performed by Marla Petersen MD at [facility] ENDOSCOPY Prior To Admission Medications: (Not in a hospital admission) Allergies: Allergies Allergen Reactions ??? Epinephrine Faints Family History: No family history on file. Social History and Habits: Social History Socioeconomic History ??? Marital status: Spouse name: Not on file ??? Number of children: Not on file ??? Years of education: Not on file ??? Highest education level: Not on file Occupational History ??? Not on file Tobacco Use ??? Smoking status: Former Smoker ??? Smokeless tobacco: Never Used Vaping Use ??? Vaping Use: Never used Substance and Sexual Activity ??? Alcohol use: Yes Alcohol/week: 4.0 standard drinks Types: 4 Glasses of wine per week ??? Drug use: No ??? Sexual activity: Not on file Other Topics Concern ??? Not on file Social History Narrative ??? Not on file Social Determinants of Health Financial Resource Strain: Not on file Food Insecurity: Not on file Transportation Needs: Not on file Physical Activity: Not on file Housing Stability: Not on file Immunizations: Immunization History Administered Date(s) Administered ??? Pfizer Covid-19 (Purple Cap) Vaccine (12yrs+) 09/25/2020, 10/16/2020, 02/18/2021 Physical Exam: Last Set of Vitals and range of vitals over past 24 hours: Last value Range last 24 hrs Temperature Temp: 37.1 ??C (98.7 ??F) Temp: [36.1 ??C (97 ??F)-37.1 ??C (98.7 ??F)] Heart Rate Heart Rate: 60 Heart Rate: [53-89] Blood Pressure BP: 164/78 BP: (113-164)/(70-107) Respiratory Rate Resp: 19 Resp: [11-19] SpO2 SpO2: 98 % SpO2: [93 %-100 %] Body mass index is 27.32 kg/m??. Physical Exam Constitutional: General: She is not in acute distress. Appearance: Normal appearance. HENT: Head: Normocephalic and atraumatic. Nose: Nose normal. Mouth/Throat: Pharynx: Oropharynx is clear. Eyes: Extraocular Movements: Extraocular movements intact. Pupils: Pupils are equal, round, and reactive to light. Cardiovascular: Rate and Rhythm: Normal rate and regular rhythm. Pulmonary: Effort: No respiratory distress. Breath sounds: No wheezing. Abdominal: General: There is no distension. Tenderness: There is no abdominal tenderness. Musculoskeletal: Right lower leg: No edema. Left lower leg: No edema. Skin: Coloration: Skin is not jaundiced or pale. Neurological: General: No focal deficit present. Mental Status: She is alert and oriented to person, place, and time. Cranial Nerves: No cranial nerve deficit. Sensory: No sensory deficit. Motor: No weakness. Psychiatric: Mood and Affect: Mood normal. Laboratory (Last 24 Hours): Recent Results (from the past 24 hour(s)) Comprehensive metabolic panel (non-fasting) Result Value Ref Range Glucose Lvl 91 65 - 199 mg/dL BUN 9 8 - 18 mg/dL Creatinine 0.83 0.70 - 1.20 mg/dL Sodium 140 135 - 145 mmol/L Potassium 4.0 3.5 - 5.0 mmol/L Chloride 105 98 - 107 mmol/L CO2 24 22 - 31 mmol/L Anion Gap 11 5 - 15 mmol/L Calcium 9.3 8.5 - 10.5 mg/dL Total Protein 6.6 6.1 - 8.0 g/dL Albumin 4.4 3.2 - 5.2 g/dL AST 21 0 - 30 unit/L ALT 11 0 - 30 unit/L Alk Phos 52 35 - 105 unit/L Total Bilirubin 1.2 0.2 - 1.3 mg/dL Estimated GFR 79 >=60 mL/min/1.73 m?? Hemogram Result Value Ref Range WBC 5.6 4.0 - 9.5 x10(3)/mcL RBC 4.39 4.00 - 5.21 x10(6)/mcL Hemoglobin 12.9 11.7 - 15.5 g/dL Hematocrit 38.1 35.7 - 45.8 % MCV 86.8 82.6 - 94.4 fL MCH 29.4 27.1 - 32.0 pg MCHC 33.9 31.7 - 35.0 g/dL Platelets 182 145 - 357 x10(3)/mcL RDWSD 42.1 37.0 - 46.0 fL RDWCV 13.2 11.5 - 14.1 % MPV 9.5 7.6 - 12.9 fL nRBC % Auto 0.0 % nRBC Abs Auto 0.000 0.000 - 0.000 x10(3)/mcL Differential, Automated Result Value Ref Range Neutrophils % 73.7 % Neutr Abs (ANC) 4.16 1.70 - 6.10 x10(3)/mcL Lymphocytes % 16.1 % Lymphocytes Abs 0.9 0.9 - 3.2 x10(3)/mcL Monocytes % 8.8 % Monocyte Abs 0.5 0.3 - 0.9 x10(3)/mcL Eosinophils % 0.5 % Eosinophils Abs 0.0 0.0 - 0.4 x10(3)/mcL Basophils % 0.5 % Basophils Abs 0.0 0.0 - 0.1 x10(3)/mcL Immature Gran % 0.40 % Tiffany Gran Abs 0.02 0.00 - 0.04 x10(3)/mcL Blue Tube HOLD Result Value Ref Range Blue Hold Sample in lab. Assessment and plan:: Anika Reyes is a 61 y.o. female with PMH of autoimmune hepatitis and a distal esophageal Schatzki's ring, who presented to the ER following upper endoscopy with dilation due to concern for esophageal perforation. CT with oral contrast which showed free air in the mediastinum peritoneum and retroperitoneum, suggesting microperforation or perforation in region of GE junction. Case was discussed with thoracic surgery who recommended barium (omnipaque) esophageal swallow study which did not reveal any contrast extr avasation suggesting that the perforation has tenuously sealed. At that point, thoracic surgery recommended admission to medicine, NPO for 48 hrs, IVF, broad spectrum antibiotics, as well as PPI BID #Dysphagia requiring endoscopic dilation c/b esophageal perforation.. -Strict NPO for 48 hours. No NGT placement to ensure stability of the esophageal tear. -IVF; LR @125 cc/h -Continue broad spectrum antibiotics IV vanc, and zosyn 01/13- -PPI BID -Appreciate GI and thoracic surgery recommednations -CBC, and BMP daily #History of autoimmune hepatitis -Hold home azathioprine for now #Routine Diet: Strict NPO for 48 hrs IVF: LR @125 cc/h GI PPx: PPI BID DVT PPx: Lovenox Code status: Full code A copy of this document will be sent to the patient's Primary Care Physician and/or Referring Physician. Cece Coello MD 01/14/2022 documented in this encounter ED Notes Braeden Hurtado MD - 01/13/2022 8:09 PM EDT ED Resident Note HPI: Anika Reyes is a 61 y.o. female who presents to the Emergency Department past medical history pertinent for Schatzki's ring that was attempted to be dilated today. During the procedure, in the endoscopy suite, the endoscopist noticed concern for possible perforation. The patient has received multiple endoscopies for surveillance for De Leon's esophagus no previous history of perforations. She has a medical history also pertinent for autoimmune hepatitis. A CT scan demonstrated air in the mediastinum for which it was recommended that the patient presented to the emergency room. She denies any chest pain shortness of breath fevers chills any urinary or gastrointestinal complaints. The patient endorses feeling anxious about the entire situation and did not tolerate a esophagram following the alleged had perforation. Pt was seen under the supervision of an attending physician. Review of Systems Constitutional: Negative for chills, fatigue and fever. Respiratory: Negative for shortness of breath. Cardiovascular: Negative for chest pain. Gastrointestinal: Negative for constipation, diarrhea, nausea and vomiting. Genitourinary: Negative for dysuria, hematuria and urgency. Musculoskeletal: Negative for myalgias. Skin: Negative for rash. Neurological: Negative for dizziness and headaches. Pertinent positives and negatives are included in the HPI, otherwise at least ten systems were reviewed and negative. Past Medical and Surgical Histories, Social History, Medications, Allergies were reviewed in the chart. Vitals: ED Triage Vitals [01/13/221951] BP: 164/78 Heart Rate: 72 Resp: 16 Temp: 37.1 ??C (98.7 ??F) Temp src: Oral SpO2: 97 % O2 Device: RA O2 Flow Rate (L/min): n/a Physical Exam Vitals and nursing note reviewed. Constitutional: General: She is not in acute distress. Appearance: Normal appearance. She is not ill-appearing. HENT: Head: Normocephalic and atraumatic. Nose: Nose normal. Mouth/Throat: Mouth: Mucous membranes are moist. Eyes: General: Right eye: No discharge. Left eye: No discharge. Extraocular Movements: Extraocular movements intact. Conjunctiva/sclera: Conjunctivae normal. Cardiovascular: Rate and Rhythm: Normal rate and regular rhythm. Pulses: Normal pulses. Heart sounds: Normal heart sounds. Pulmonary: Effort: Pulmonary effort is normal. Breath sounds: Normal breath sounds. Abdominal: General: Abdomen is flat. Palpations: Abdomen is soft. Musculoskeletal: General: Normal range of motion. Cervical back: Normal range of motion and neck supple. Skin: General: Skin is warm. Coloration: Skin is not jaundiced or pale. Neurological: General: No focal deficit present. Mental Status: She is alert and oriented to person, place, and time. Mental status is at baseline. Psychiatric: Mood and Affect: Mood normal. Behavior: Behavior normal. Thought Content: Thought content normal. Judgment: Judgment normal. Last 3 wbc, hgb, hct plt Recent Labs 01/13/221999 WBC 5.6 HGB 12.9 HCT 38.1 PLATELET 182 Last 3 Lytes Recent Labs 01/13/221999 NA 140 K 4.0 CL 105 CO2 24 BUN 9 CREATININE 0.83 GLUCOSE 91 Last 3 LFTs Recent Labs 01/13/22199907/29/21 0000 AST 21 28 ALT 11 20 ALKPHOS 52 58 BILITOT 1.2 0.7 XR Fluoro Barium Swallow (Single Contrast) Final Result No fluoroscopically evidence of esophageal leak present. Preliminary report signed by: Hola Lee at 01/13/2022 9:01 PM I have personally reviewed the image(s) and the resident's interpretation and agree with the findings, Duong Burns MD at 01/13/2022 9:03 PM Thank you for letting us participate in the care of this patient. If you are a health care provider and have any questions regarding this report, please contact the number below. For patients who have questions please contact the health acute care registered nurse that requested your imaging first. Electronically signed by: Duong Burns MD, [facility] ([phone]), at 01/13/2022 9:03 PM ED Course as of 01/14/227Jan 13, 20221951 Consult: abx recommendations confirmed, also confirmed 2043 CBC (with Diff) CBC normal no evidence of leukocytosis 2112 Comprehensive metabolic panel (non-fasting) Normal CMP 2113 XR Fluoro Barium Swallow (Single Contrast) IMPRESSION No fluoroscopically evidence of esophageal leak present. aware 2126 Paged HM for admission, Mediastinitis following upper endoscopy Procedures Assessment and Plan: 61 y.o. female with mediastinitis following upper endoscopy with gastroenterology today for dilationfor Schatzki's ring. Mediastinitis was demonstrated on CT scan however barium swallow did not demonstrate any evidence of a perforation. Discussion with general surgery under thoracic surgery attendingaddendum the patient should be admitted to medicine for continued IV antibiotics n.p.o. for 48 hoursand for monitoring status. Patient otherwise denies any chest pain any shortness of breath labs are reassuring pain was well controlled she was admitted to the floor for continued monitoring. Spoke exte nsively to the general surgery team in terms of disposition for the patient and felt that it would be appropriate for medicine admission as a as the complication was secondary to gastroenterology procedure and there is no indication for any surgical intervention at the time The visit findings, diagnosis, and care plan were discussed with the patient. Braeden Hurtado MD Resident 01/14/227 Associated attestation - Sherry Garcia MD - 01/14/2022 8:57 AM EDT ED ATTENDING ATTESTATION The patient was seen in conjunction with the resident physician. I have independently performed the cortez portions of the history and physical exam. I have personally reviewed nursing notes, vital signs,and diagnostic studies including labs, imaging studies and EKGs. I have discussed the details of the case with the resident and agree with the assessment and plan as described in the resident's note, unless stated otherwise in my separate note. Did this case involve critical care? Sherry Cifuentes MD - 01/13/2022 7:54 PM EDT ED Attending Note HPI: Anika Reyes is a 61 y.o. female who presents to the Emergency Department history of Ricky who was having endoscopy today with dilatation and the nights were concerned that some muscle fibers therefore was sent for a CT which showed pneumomediastinum. Patient is being brought here for IV antibiotics and concern for esophageal perforation and upper GI barium swallow. Patient denies any fevers chills chest pain shortness of breath or abdominal pain. No past medical history on file. Review of Systems Constitutional: Negative for fever. Respiratory: Negative for cough and shortness of breath. Cardiovascular: Negative for chest pain. Gastrointestinal: Negative for abdominal pain, diarrhea and vomiting. Skin: Negative for rash. All other systems reviewed and are negative. Pertinent positives and negatives are included in the HPI, otherwise at least ten systems were reviewed and negative. Past Medical and Surgical Histories, Social History, Medications, Allergies were reviewed in the chart. Vitals: ED Triage Vitals [01/13/221951] BP: (!) 164/7 Heart Rate: 72 Resp: 16 Temp: 37.1 ??C (98.7 ??F) Temp src: Oral SpO2: 97 % O2 Device: RA O2 Flow Rate (L/min): n/a Physical Exam Vitals and nursing note reviewed. Constitutional: Appearance: She is well-developed. HENT: Head: Normocephalic and atraumatic. Cardiovascular: Rate and Rhythm: Normal rate and regular rhythm. Pulses: Normal pulses. Heart sounds: Normal heart sounds. Pulmonary: Effort: Pulmonary effort is normal. No respiratory distress. Breath sounds: Normal breath sounds. Abdominal: General: There is no distension. Palpations: Abdomen is soft. Tenderness: There is no abdominal tenderness. Musculoskeletal: General: Normal range of motion. Cervical back: Normal range of motion and neck supple. Skin: General: Skin is warm and dry. Neurological: Mental Status: She is alert and oriented to person, place, and time. Comments: CLYDE Psychiatric: Behavior: Behavior normal. Thought Content: Thought content normal. Judgment: Judgment normal. ED Course: XR Fluoro Barium Swallow (Single Contrast) Final Result No fluoroscopically evidence of esophageal leak present. Preliminary report signed by: Hola Lee at 01/13/2022 9:01 PM I have personally reviewed the image(s) and the resident's interpretation and agree with the findings, Duong Burns MD at 01/13/2022 9:03 PM Thank you for letting us participate in the care of this patient. If you are a health care provider and have any questions regarding this report, please contact the number below. For patients who have questions please contact the health acute care registered nurse that requested your imaging first. Electronically signed by: Duong Burns MD, [facility] ([phone]), at 01/13/2022 9:03 PM Procedures Assessment and Plan: 61 y.o. female with endoscopy with dilatation with concern for pneumomediastinum and esophageal perforation. She is overall very well-appearing. Surgery was at the bedside immediate upon arrival. Barium swallow showed no evidence of perforation but Thoracics does recommend admission for monitoring andIV antibiotics. Patient will be admitted to the medicine service with Thoracics following. Did this case involve critical care? No The visit findings, diagnosis, and care plan were discussed with the patient. Sherry Garcia MD 01/13/22 1751 Cal Ruvalcaba DO - 01/13/2022 7:14 PM EDT 61 yo fem with upper endoscopy today for dysphagia, had schatzki ring that was treated, had a deep rent after. Plan to get esophagram to rule out perforation, but pt had a phobia and did not want the procedure. Therefore, CT chest done with contrast and did not show contrast extravasation but showed free air in mediastinum, peritoneum and retroperitoneum, suggesting microperforation or perforation inregion of GE junction. Endo spoke with Thoracic surgery, whom recommended that esophagram is necessary. Will likely need anxiolysis. If full perforation/leak, would need management by thoracic. If microperforation and no clear leak, Endo has recommended admit to medicine for further observation. Please consult thoracic surgery upon eval. Cal Ruvalcaba DO 01/13/221918 documented in this encounter Miscellaneous Notes Initial Assessments - Sara Zavala RN - 01/16/2022 9:07 AM EDT Office of Care Management Initial Assessment Sara Zavala RN reviewed record and discussed patient with Care Team. Source of Information: Team, bedside nurse, medical record, and Chart Review (Patient unavailable). Reason for Hospitalization: Per , Yolanda Monroe, 01/15@6:45pm. Anika Matos Gabealpakilliandk??is a??61 y.o.??female??with PMH of??autoimmune hepatitis and a distal esophageal??Schatzki's ring who presented to the ER following upper endoscopy with dilation due to concern for esophageal perforation. ?? CT with oral contrast which showed free air in the mediastinum??peritoneum and retroperitoneum, suggesting microperforation or perforation in region of GE junction. Case was discussed with thoracic surgery who recommended barium (omnipaque) esophageal swallow study which did not reveal any contrast ext ravasation suggesting that the perforation has tenuously sealed. She continues on strict NPO status,mIVF, IV abx, and IV PPI BID per thoracic surgery and GI recommendations. She remains clinically stable and plan to advance diet to clears this afternoon; if tolerating can further advance to full liquid diet tomorrow which will be continued for 1 week. Covid Vaccination Status: 1st, 2nd & booster (Per patient chart). Past medical History: No past medical history on file. Hospitalizations Within the Past 30 Days: None Current Decision-Making Capacity: Self Advance Care Planning: Attempt Cardiopulmonary Resuscitation - Inpatient <no information> -Advanced Directive: No, need to discuss If AD's have not been completed, spouse, Bill Bound, would be surrogate decision maker per [place] surrogate decision making law. (Only good for 180 days) Any patient receiving care at [facility] must abide by [place] law. The hierarchy for surrogate decision making is: (a) Patient???s spouse, or civil union partner or common law spouse unless there is a divorce proceeding, separation agreement, or restraining order limiting that person???s relationship with the patient. (b) Any adult son or daughter of the patient. (c) Either parent of the patient. (d) Any adult brother or sister of the patient. (e) Any adult grandchild of the patient. (f) Any grandparent of the patient. (g) Any adult aunt, uncle, niece, or nephew of the patient. (h) A close friend of the patient. (i) The agent with financial power of attorney lawyer or a conservator appointed in accordance with RSA 464-A. (j) The guardian of the patient???s estate. Current Coping/Education/Information Needs: Unable to assess Current Functional Ability: Assistive Equipment and Assistive Person Functional Status Prior to Admission: unable to assess Prior ADLs & IADLs: Independent with all ADLs & IADLs Home Environment: Others in the home: spouse. Current Living Arrangements: unable to assess. Accessibility Concerns:Unable to assess at this time. Resource / Environmental Concerns: Resource/Environmental Concerns: unable to assess Current DME: unable to assess Home Address: [address] [place] [id number] Social & Family Supports: All names listed below confirmed with patient as current and correct Extended Emergency Contact Information Primary Emergency Contact: Macario Yates Address: [address] [place] [address] of [place] [employer] Relation: Spouse Current Care Provided by: self Provides Primary Care For: no one Caregiver if needed: spouse Quality of Family relationships: unable to assess Community Resources being provided currently: unable to assess Behavioral Health History: Unable to assess at this time Substance Use/Abuse: Social History Tobacco Use Smoking Status Former Smoker Smokeless Tobacco Never Used In the past year have you used an illegal drug or used a prescription medication for non-medical reasons?: No 0 No problems reported 1-2 Low level 3-5 Moderate level 6-8 Substantial level 9- 10 Severe level In the past year have you had 4 or more drinks a day containing alcohol?: No 0 to 7 points: Low risk 8 to 15 points: Medium risk 16 to 19 points: High risk 20 to 40 points: Addiction likely Other Pertinent/Service Specific Information: None indicated Health/Prescription Coverage: Primary Insurance: [employer] [place] Payor: [employer] [facility] [place] / Plan: [place] / Product Type: *No Product type* / Secondary Insurance: N/A Prescription Coverage: Yes ([facility]) Preferred Pharmacy: [id number] [place], [place] - [address] [facility] [address] [facility] [address] [facility] [phone] Status: Patient is a : unable to assess Primary Care Provider: Rhonda Oliva APRN [id number] Patient/Caregiver Goals of Treatment: Get out of here per admission note Potential Needs for Transition of Care: unable to assess Agency Referrals: Forthcoming based on needs assessment Transportation: no concerns Transportation Anticipated: family or friend will provide Concerns to be Addressed: discharge planning Assessment: Patient is admitted to Hospital Medicine service for acute mediastinitis. Plan: A member of the Care Management team will continue to monitor progress, follow for continuity of care and assist with transition of care planning. Sara Zavala RN [facility]/Medicine Office of Care Management Pager: [phone] Consult Note - Cecille Gaming MD - 01/16/2022 7:55 AM EDT Thoracic Surgery Consult Note ID: 61F s/p upper endoscopy with dilation, muscle fibers visualized after 18mm dilator inflation, f/u CT demonstrated mediastinal air concerning for esophageal perforation. HPI: Anika Reyes is a 61 y.o. female with PMH of autoimmune hepatitis and a distal esophageal Schatzki's ring (last dilated in 2011). Repeat EGD in 2018 revealed a normal esophagus without need for dilation (distal 2/3 esophageal biopsies revealed esophageal squamous mucosa). Since then she developed worsening dysphagia and she underwent endoscopic dilation earlier today (713/). Non-obstructing Schatzki ring was visualized at the GEJ (~39cm from the incisors). TTS dilator was utilized with a15mm and 16.5mm with mucosal disruption; 18mm dilation resulted in significant mucosal disruption with rent. Gastroenterology concerned about size and ordered swallow study, which patient did not tolerate because of anxiety/claustrophobia. CT with oral contrast demonstrated mediastinal free air without obvious contrast extravasation. 24 Hour events/Subjective: - KATHERINE, advanced to clear liquid diet in the afternoon, transitioned from IV abx to liquid augmentin,stable on RA Ms. Reyes states that she has been tolerating the clear liquid diet very well with no discomfortor dysphasia. Denies chest pain, or abdominal discomfort. Objective: Temp: [36.4 ??C (97.5 ??F)-36.9 ??C (98.4 ??F)] ; 36.4 ??C (97.5 ??F) Heart Rate From SP02 Min: 65 bpm Max: 81 bpm; 70 bpm Heart Rate: [69-71] ; 71 BP: (134-141)/(68-81) ;141/81 Resp: [16-18] ; 16 SpO2: [97 %-99 %] ; 97 % on RA General: Patient appears well, sitting up in bed Neuro: A&Ox3. No focal deficits, responds appropriately Lungs: non-labored breathing on RA, NT Heart: Regular rate and rhythm Abdomen: Soft, non-distended, NT Ext: Warm, distal pulses intact. No lower extremity edema Labs: Recent Labs 01/15/2293901/13/221999 WBC 5.1 5.6 HGB 12.4 12.9 HCT 35.8 38.1 PLATELET 170 182 NEUTROABS 4.23 4.16 Recent Labs 01/15/2293901/13/221999 NA 139 140 K 3.9 4.0 CL 105 105 CO2 21* 24 BUN 13 9 CREATININE 0.87 0.83 Recent Labs 01/15/2293901/13/221999 CALCIUM 9.1 9.3 Recent Labs 01/15/2293901/13/221999 GLUCOSE 70 91 Recent Labs 01/13/221999 AST 21 ALT 11 ALKPHOS 52 BILITOT 1.2 Imagin01/13/22 CT: extensive free air in the mediastinum that tracks into the adjacent soft tissues and retroperitoneum 01/13/22 Barium swallow: no omnipaque extravasation from the esophagus from any angle during fluoroscopy 01/13/22 EGD: Findings: ?Esophagogastric landmarks were identified: the Z-line ?was found at 37 cm, the upper extent of the gastric ?folds was found at 37 cm and the site of hiatal ?narrowing was found at 39 cm from the incisors. ?A non-obstructing Schatzki ring was found at the ?gastroesophageal junction. A TTS dilator was passed ?through the scope. Dilation with a 15-16.5-18 mm ?balloon dilator was performed to 18 mm. The dilation ?site was examined and showed significant mucosal ?disruption with a rent. ?A 2 cm hiatal hernia was present. ?The entire examined stomach was normal. ?The examined duodenum was normal. Assessment: 61F s/p upper endoscopy with dilation resulted in significant mucosal disruption with visualized muscle fibers after 18mm dilator inflation, f/u CT demonstrated mediastinal air concerning for esophageal perforation. Barium (omnipaque) esophageal swallow study did not reveal any contrast extravasation suggesting that the perforation has tenuously sealed. Recommendations: - Continue clear liquid diet and no [...] clinic in 3 weeks with a CXR All plans formulated in discussion with and directed by attending thoracic surgeon Dr. Horta. Cecille Gaming MD 01/16/2022 Thoracic Surgery Service Pager [phone] Associated attestation - Panfilo Horta MD - 01/16/2022 10:19 AM EDT I have seen the patient in person and reviewed the resident's above history and I agree with the details as written. The assessment and plan were formulated in discussion with me and I agree with them as documented. Plan: Seen by me. Chart reviewed. Tolerated clears, will advance to full liquids this am. Toleratingthe oral antibiotic (probiotic is okay). Tolerating BID PPI. Ok to discharge today from our standpoint with full liquids x 1 week, purees x 1 week and soft solids x 1 week. She will get a PA/LAT CXR close to home and follow-up with me via tele health in 3 weeks time. Please call our service with further questions or concerns. Thank you for this consult. Panfilo Horta MD Thoracic Surgery Consult Note - Arely Schwartz PA - 01/15/2022 7:15 AM EDT Thoracic Surgery Consult Note ID: 61F s/p upper endoscopy with dilation, muscle fibers visualized after 18mm dilator inflation, f/u CT demonstrated mediastinal air concerning for esophageal perforation. HPI: Anika Reyes is a 61 y.o. female with PMH of autoimmune hepatitis and a distal esophageal Schatzki's ring (last dilated in 2011). Repeat EGD in 2018 revealed a normal esophagus without need for dilation (distal 2/3 esophageal biopsies revealed esophageal squamous mucosa). Since then she developed worsening dysphagia and she underwent endoscopic dilation earlier today (). Non-obstructing Schatzki ring was visualized at the GEJ (~39cm from the incisors). TTS dilator was utilized with a15mm and 16.5mm with mucosal disruption; 18mm dilation resulted in significant mucosal disruption with rent. Gastroenterology concerned about size and ordered swallow study, which patient did not tolerate because of anxiety/claustrophobia. CT with oral contrast demonstrated mediastinal free air without obvious contrast extravasation. 24 Hour events/Subjective: - KATHERINE, remains NPO with plan to continue x48 hours, remains on vanc/zosyn, stable on RA Objective: Temp: [36.3 ??C (97.4 ??F)-37 ??C (98.6 ??F)] ; 36.3 ??C (97.4 ??F) Heart Rate From SP02 Min: 55 bpm Max: 82 bpm; 79 bpm Heart Rate: [82] ; 82 BP: (132-141)/(70-76) ;141/73 Resp: [16-29] ; 18 SpO2: [96 %-97 %] ; 97 % on RA General: Patient appears well, sitting up in bed Neuro: A&Ox3. No focal deficits, responds appropriately Lungs: non-labored breathing on RA Heart: Regular rate and rhythm Abdomen: Soft, non-distended, NT Ext: Warm, distal pulses intact. No lower extremity edema Labs: Recent Labs 01/13/221999 WBC 5.6 HGB 12.9 HCT 38.1 PLATELET 182 NEUTROABS 4.16 Recent Labs 01/13/221999 NA 140 K 4.0 CL 105 CO2 24 BUN 9 CREATININE 0.83 Recent Labs 01/13/221999 CALCIUM 9.3 Recent Labs 01/13/221999 GLUCOSE 91 Recent Labs 01/13/221999 AST 21 ALT 11 ALKPHOS 52 BILITOT 1.2 Imagin01/13/22 CT: extensive free air in the mediastinum that tracks into the adjacent soft tissues and retroperitoneum 01/13/22 Barium swallow: no omnipaque extravasation from the esophagus from any angle during fluoroscopy 01/13/22 EGD: Findings: ?Esophagogastric landmarks were identified: the Z-line ?was found at 37 cm, the upper extent of the gastric ?folds was found at 37 cm and the site of hiatal ?narrowing was found at 39 cm from the incisors. ?A non-obstructing Schatzki ring was found at the ?gastroesophageal junction. A TTS dilator was passed ?through the scope. Dilation with a 15-16.5-18 mm ?balloon dilator was performed to 18 mm. The dilation ?site was examined and showed significant mucosal ?disruption with a rent. ?A 2 cm hiatal hernia was present. ?The entire examined stomach was normal. ?The examined duodenum was normal. Assessment: 61F s/p upper endoscopy with dilation resulted in significant mucosal disruption with visualized muscle fibers after 18mm dilator inflation, f/u CT demonstrated mediastinal air concerning for esophageal perforation. Barium (omnipaque) esophageal swallow study did not reveal any contrast extravasation suggesting that the perforation has tenuously sealed. Recommendations: - Continue STRICT NPO for a total of 48 hours (with IVF hydration) and no NGT placement to ensure stability of the esophageal tear - May advance to clear liquid diet later this afternoon (01/15/2022), and if tolerating well may advance to full liquid diet tomorrow (01/16/2022) and remain on this for 1 week - would also recommend a nutrition consult for full liquid, puree and soft solid diet education for diet advancement purposes as outpatient - Continue BID PPI IV and broad spectrum antibiotics, will need to remain on BID PPI x14 days post-discharge, as well as a total of 7 days of abx coverage (PO liquid augmentin post-discharge) All plans formulated in discussion with and directed by attending thoracic surgeon Dr. Horta. ANTONIA Gudino 01/15/2022 Thoracic Surgery Service Pager [phone] Associated attestation - Panfilo Horta MD - 01/16/2022 10:17 AM EDT I have seen the patient in person and reviewed the resident's above history and I agree with the details as written. The assessment and plan were formulated in discussion with me and I agree with them as documented. Plan: Seen by me. Will transition to liquid antibiotics. Continues on BID ppi. No pain and tolerating clears.Anticipate advancement to full liquids tomorrow and discharge to home with follow-up tomorrow. Panfilo Horta MD Thoracic Surgery Consult Note - Joaquin Mendez MD - 01/14/2022 9:18 AM EDT Images from the original note were not included. DIVISION OF GASTROENTEROLOGY & HEPATOLOGY INITIAL CONSULT REQUESTING PROVIDER: Cece Coello MD NAME: Anika Reyes : 1960 HPI: 61 y.o./F w/ hx of: - Autoimmune Hepatitis on AZA - Hx of Schatzki ring s/p dilation - MONICA on CPAP - GERD Who is being seen by GI for esophageal perforation. She is known to have a history of schatzki ring which was previously dilated in 2011. She was then seen here for upper endoscopy on 03/29/2018 which showed a 4 cm hiatal hernia, but otherwise normal esophagus with no need for repeat dilation. At her last clinic visit on 07/27/2021 she endorsed mild intermittent dysphagia with plan for repeat EGD/dilation. She came for the procedure yesterday on 01/13/2022 procedure notes indicating: ? Esophagogastric landmarks were identified: the Z-line ?was found at 37 cm, the upper extent of the gastric ?folds was found at 37 cm and the site of hiatal ?narrowing was found at 39 cm from the incisors. ?A non-obstructing Schatzki ring was found at the ?gastroesophageal junction. A TTS dilator was passed ?through the scope. Dilation with a 15-16.5-18 mm ?balloon dilator was performed to 18 mm. The dilation ?site was examined and showed significant mucosal ?disruption with a rent. ?A 2 cm hiatal hernia was present. ?The entire examined stomach was normal. ?The examined duodenum was normal. Because of the size of the mucosal disruption, CT chest was ordered which showed extensive mottled free air extending from the lower neck soft tissues, the mediastinum, peritoneum and retroperitoneum, compatible with esophageal perforation. This was followed by barium swallow which showed no fluoroscopic evidence of esophageal leak. She was admitted and started on vancomycin plus Zosyn with consultation to thoracic surgery who feel that without evidence of contrast extravasation, this suggest that the perforation is tenuously sealed. Their current recommendations include strict n.p.o. for 48 hours,and no NG tube placement to allow the tear to heal. Objective data since arrival includes: -AF, HDS, WNL -CBC: WBC 5.6, Hgb 12.9, PLT 182 -BMP: NA 140, K4, CL 105, CO2 24, BUN 9, creatinine 0.3 -LFTs: AST 21, ALT 11, alk phos 52, TB 1.2 ROS: 10-system ROS negative other than that noted above PAST MEDICAL HX: No past medical history on file. PAST SURGICAL HX: Past Surgical History: Procedure Laterality Date ??? PRO UPPER GI ENDOSCOPY, BIOPSY N/A 03/29/2018 EGD WITH BIOPSY (WRVU 2.49) performed by Marla Petersen MD at [facility] ENDOSCOPY PAST SOCIAL HX: Social History Socioeconomic History ??? Marital status: Spouse name: Not on file ??? Number of children: Not on file ??? Years of education: Not on file ??? Highest education level: Not on file Occupational History ??? Not on file Tobacco Use ??? Smoking status: Former Smoker ??? Smokeless tobacco: Never Used Vaping Use ??? Vaping Use: Never used Substance and Sexual Activity ??? Alcohol use: Yes Alcohol/week: 4.0 standard drinks Types: 4 Glasses of wine per week ??? Drug use: No ??? Sexual activity: Not on file Other Topics Concern ??? Not on file Social History Narrative ??? Not on file Social Determinants of Health Financial Resource Strain: Not on file Food Insecurity: Not on file Transportation Needs: Not on file Physical Activity: Not on file Housing Stability: Not on file PAST FAMILY HX: No family history on file. MEDICATIONS Home Meds: (Not in a hospital admission) Current Meds: Scheduled: ??? piperacillin-tazobactam 4.5 g Intravenous Q8H ??? sodium chloride 0.9 % (flush) 5 mL Intravenous BID ??? enoxaparin 40 mg Subcutaneous Nightly ??? pantoprazole 40 mg Intravenous BID ??? vancomycin 1 g Intravenous Q12H Drips: ??? lactated Ringers PRN: sodium chloride 0.9 % (flush), lidocaine, [COMPLETED] vancomycin AND Vancomycin Level - MAR Order Reminder Allergies Allergen Reactions ??? Epinephrine Faints OBJECTIVE Vitals: T Temp: [36.1 ??C (97 ??F)-37.1 ??C (98.7 ??F)] HR Heart Rate: [48-89] BP BP: (100-164)/(69-107) RR Resp: [9-29] SpO2 SpO2: [92 %-100 %] IO No intake/output data recorded. Wt Last 83.9 kg (185 lb) Admit 83.92 kg Physical Exam: GEN: Awake, alert, no acute distress HEENT: sclerae anicteric, moist mucous membranes RESP: CTAB CARDIAC: RRR, normal S1/S2, no appreciable murmurs ABDOMEN: Soft, non-tender, non-distended, normoactive bowel sounds EXTREM: Warm, no edema NEURO: Grossly intact, moves all extremities SKIN: No jaundice Labs: CBC: Recent Labs 01/13/221999 WBC 5.6 HGB 12.9 HCT 38.1 PLATELET 182 MCV 86.8 RDWCV 13.2 COAG: No results for input(s): PTT, INR in the last 168 hours. CHEM: Recent Labs 01/13/221999 GLUCOSE 91 NA 140 K 4.0 CL 105 CO2 24 BUN 9 CREATININE 0.83 ALBUMIN 4.4 CALCIUM 9.3 HEPATIC: Recent Labs 01/13/221999 ALKPHOS 52 ALT 11 AST 21 BILITOT 1.2 INFLAMM: No results for input(s): CRP in the last 168 hours. IMAGING: Reports and images personally reviewed in eDH XR Fluoro Barium Swallow (Single Contrast) Final Result No fluoroscopically evidence of esophageal leak present. Preliminary report signed by: Hola Lee at 01/13/2022 9:01 PM I have personally reviewed the image(s) and the resident's interpretation and agree with the findings, Duong Burns MD at 01/13/2022 9:03 PM Thank you for letting us participate in the care of this patient. If you are a health care provider and have any questions regarding this report, please contact the number below. For patients who have questions please contact the health acute care registered nurse that requested your imaging first. Electronically signed by: Duong Burns MD, [facility] ([phone]), at 01/13/2022 9:03 PM ENDOSCOPY: See HPI ASSESSMENT & PLAN: Anika Reyes is a 61 y.o. F w/PMH of AIH, MONICA, GERD, and Hx of Schatzki ring s/p dilation who wasseen yesterday for EGD w/dilation with significant disruption in the esophageal mucosa c/f possible perforation. Followup CT showed free air in the mediastinum, although contrast study did not show evidence of leak suggesting healing of the mucosa at least for now. In this setting, repeating endoscopyat this juncture may be ill advised and could lead to repeat perforation. Instead, we tend to agree with the plans outlined by thoracic surgery including ongoing NPO, ABX, PPI, IVF, and slow advancement of diet after 48 hours. Recommendations: - NPO for now - Agree with broad spectrum ABX - IV PPI BID - IVF Patient reviewed with Dr. Lloyd. Joaquin Mendez MD PGY-5, Gastroenterology Associated attestation - Luis Miguel Lloyd MD - 01/15/2022 3:42 PM EDT I have independently seen and examined the patient, and have reviewed the resident???s above note, and agree with the documented history, physical findings, and study results; my evaluation of the patient is below: I met with Ms Reyes and agree with the plan as outlined by DR Andrea Lloyd MD Consult Note - Arely Schwartz PA - 01/14/2022 7:16 AM EDT Thoracic Surgery Consult Note ID: 61F s/p upper endoscopy with dilation, muscle fibers visualized after 18mm dilator inflation, f/u CT demonstrated mediastinal air concerning for esophageal perforation. HPI: Anika Reyes is a 61 y.o. female with PMH of autoimmune hepatitis and a distal esophageal Schatzki's ring (last dilated in 2011). Repeat EGD in 2018 revealed a normal esophagus without need for dilation (distal 2/3 esophageal biopsies revealed esophageal squamous mucosa). Since then she developed worsening dysphagia and she underwent endoscopic dilation earlier today (71/). Non-obstructing Schatzki ring was visualized at the GEJ (~39cm from the incisors). TTS dilator was utilized with a15mm and 16.5mm with mucosal disruption; 18mm dilation resulted in significant mucosal disruption with rent. Gastroenterology concerned about size and ordered swallow study, which patient did not tolerate because of anxiety/claustrophobia. CT with oral contrast demonstrated mediastinal free air without obvious contrast extravasation. 24 Hour events/Subjective: - LETTY - EGD showed significant mucosal disruption with a tear - Barium swallow without evidence of esophageal leak - NPO - Vanc, Zosyn started Patient feels well this morning and denies chest pain, SOB, abdominal pain, nausea. She does report that she became itchy/flushed with vancomycin administration which was relieved with benadryl. Objective: Temp: [36.1 ??C (97 ??F)-37.1 ??C (98.7 ??F)] ; 37.1 ??C (98.7 ??F) Heart Rate From SP02 Min: 48 bpm Max: 84 bpm; (!) 48 bpm Heart Rate: [48-89] ; (!) 48 BP: (100-164)/(69-107) ;110/69 Resp: [9-20] ; 9 SpO2: [92 %-100 %] ; 95 % on RA General: Patient appears well, sitting up in bed Neuro: A&Ox3. No focal deficits, responds appropriately Lungs: non-labored breathing on RA Heart: Regular rate and rhythm Abdomen: Soft, non-distended, NT Ext: Warm, distal pulses intact. No lower extremity edema Labs: Recent Labs 01/13/221999 WBC 5.6 HGB 12.9 HCT 38.1 PLATELET 182 NEUTROABS 4.16 Recent Labs 01/13/221999 NA 140 K 4.0 CL 105 CO2 24 BUN 9 CREATININE 0.83 Recent Labs 01/13/221999 CALCIUM 9.3 Recent Labs 01/13/221999 GLUCOSE 91 Recent Labs 01/13/221999 AST 21 ALT 11 ALKPHOS 52 BILITOT 1.2 Imagin01/13/22 CT: extensive free air in the mediastinum that tracks into the adjacent soft tissues and retroperitoneum 01/13/22 Barium swallow: no omnipaque extravasation from the esophagus from any angle during fluoroscopy 01/13/22 EGD: Findings: ?Esophagogastric landmarks were identified: the Z-line ?was found at 37 cm, the upper extent of the gastric ?folds was found at 37 cm and the site of hiatal ?narrowing was found at 39 cm from the incisors. ?A non-obstructing Schatzki ring was found at the ?gastroesophageal junction. A TTS dilator was passed ?through the scope. Dilation with a 15-16.5-18 mm ?balloon dilator was performed to 18 mm. The dilation ?site was examined and showed significant mucosal ?disruption with a rent. ?A 2 cm hiatal hernia was present. ?The entire examined stomach was normal. ?The examined duodenum was normal. Assessment: 61F s/p upper endoscopy with dilation resulted in significant mucosal disruption with visualized muscle fibers after 18mm dilator inflation, f/u CT demonstrated mediastinal air concerning for esophageal perforation. Barium (omnipaque) esophageal swallow study did not reveal any contrast extravasation suggesting that the perforation has tenuously sealed. Recommendations: Continue STRICT NPO for 48 hours (with IVF hydration) and no NGT placement to ensure stability of the esophageal tear. She will also need to continue BID PPI IV and broad spectrum antibiotics. If unable to tolerate vancomycin, will need alternative coverage. After 48 hours can advance to clears and discharge on full liquid diet for 1 week. Would also recommend a nutrition consult for full liquid, puree and soft solid diet education. This patient and her plan was discussed with Dr. Panfilo Horta. ANTONIA Gudino 01/14/22 Associated attestation - Panfilo Horta MD - 01/14/2022 2:53 PM EDT I have seen the patient in person and reviewed the resident's above history and I agree with the details as written. The assessment and plan were formulated in discussion with me and I agree with them as documented. Plan: Seen by me. Will continue NPO until tomorrow along with antibiotics and PPI. Ambulation encouraged. Panfilo Horta MD Thoracic Surgery Consult Note - Hi Davis, [facility] - 01/13/2022 10:51 PM EDT TelePharmacy Home Medication List Update for Medication Reconciliation 01/13/22 10:51 PM Anika Reyes 1960 Allergies Allergen Reactions ??? Epinephrine Faints ??? Person Interviewed: patient ??? Quality of Interview/accuracy of medication list: excellent ??? Sources used to compile medication list: [x] Epic medication list [x] SureScripts [] PCP/Specialist list [] Retail pharmacy [] Patient list [] MAR [] Other ??? Changes made to home medication list: o Additions: - none o Deletions: - Omeprazole 40mg - zofran o Changes: - none ??? Additional Notes: none ??? Recommended changes: none The home medication list is now updated to the best of my knowledge and is ready to be reconciled bythe provider. Please contact the [facility] enterprise Medication Reconciliation Pharmacist at for any questions. Hi Davis RPH Consult Note - Duong Beckett RPH - 01/13/2022 10:22 PM EDT Clinical Pharmacist Note - Mesfin Anika Reyes [id number] 1960 Anika Reyes is a 61 y.o. female who is starting antibiotic therapy which includes intravenous vancomycin. Based on a review of the patient???s chart and/or conversation with the patient???s providers vancomycin is being used for prophylaxis of Esophageal perfotation with a targeted goal of 10 - 20 mcg/mL. The following Pharmacokinetic data has been evaluated: Wt Readings from Last 1 Encounters: 01/13/22 83.9 kg (185 lb) Ht Readings from Last 1 Encounters: 01/13/22 175.3 cm (5' 9) Labs: Creatinine clearance: Creatinine (mg/dL) Date Value 01/13/2022 0.83 Dosing recommendations: ??? Patient with esophageal perforation. Plan to load with vancomycin 2000 mg IV x1 and continue vancomycin 1000 mg IV q 12 hours. No trough schduled at this time. ??? A full dosing regimen will be ordered upon complete pharmacist consultation to follow. We will continue to monitor the patient as long as she remains on vancomycin therapy. Thank you for this consult and please page the care area pharmacist with any questions you may have. Alternately, during off-hours (9p-) you may call [phone] to contact a pharmacist. Duong Beckett RPH Consult Note - Caryl Ballard MD - 01/13/2022 8:09 PM EDT Thoracic Surgery Consult Note ID: 61F s/p upper endoscopy with dilation, muscle fibers visualized after 18mm dilator inflation, f/u CT demonstrated mediastinal air concerning for esophageal perforation. HPI: Anika Reyes is a 61 y.o. female with PMH of autoimmune hepatitis and a distal esophageal Schatzki's ring (last dilated in 2011). Repeat EGD in 2018 revealed a normal esophagus without need for dilation (distal 2/3 esophageal biopsies revealed esophageal squamous mucosa). Since then she developed worsening dysphagia and she underwent endoscopic dilation earlier today (). Non-obstructing Schatzki ring was visualized at the GEJ (~39cm from the incisors). TTS dilator was utilized with a15mm and 16.5mm with mucosal disruption; 18mm dilation resulted in significant mucosal disruption with rent. Gastroenterology concerned about size and ordered swallow study, which patient did not tolerate because of anxiety/claustrophobia. CT with oral contrast demonstrated mediastinal free air without obvious contrast extravasation. PMH: autoimmune hepatitis Medications: - prednisone (no longer taking) - azathioprine Objective: Temp: [36.1 ??C (97 ??F)-37.1 ??C (98.7 ??F)] ; 37.1 ??C (98.7 ??F) Heart Rate From SP02 Min: 52 bpm Max: 84 bpm; Heart Rate: [53-89] ; 72 BP: (113-164)/(70-107) ;164/78 Resp: [11-19] ; 16 SpO2: [93 %-100 %] ; 97 % on RA GA: NAD CV: RRR Pulm: breathing comfortably on RA under a mask ABD: not distended, nontender Labs: Recent Labs 01/13/221999 WBC 5.6 HGB 12.9 HCT 38.1 PLATELET 182 NEUTROABS 4.16 Recent Labs 01/13/221999 NA 140 K 4.0 CL 105 CO2 24 BUN 9 CREATININE 0.83 Recent Labs 01/13/221999 CALCIUM 9.3 Recent Labs 01/13/221999 GLUCOSE 91 Recent Labs 01/13/221999 AST 21 ALT 11 ALKPHOS 52 BILITOT 1.2 Imagin01/13/22 CT: extensive free air in the mediastinum that tracks into the adjacent soft tissues and retroperitoneum 01/13/22 Barium swallow: no omnipaque extravasation from the esophagus from any angle during fluoroscopy Assessment: 61F s/p upper endoscopy with dilation resulted in significant mucosal disruption with visualized muscle fibers after 18mm dilator inflation, f/u CT demonstrated mediastinal air concerning for esophageal perforation. Barium (omnipaque) esophageal swallow study did not reveal any contrast extravasation suggesting that the perforation has tenuously sealed. Recommendations: She will need STRICT NPO for 48 hours (with IVF hydration) and no NGT placement to ensure stability of the esophageal tear. She will also need IV vanc, zosyn and BID PPI IV. Ongoing decision making regarding possible endoscopic intervention (with gastroenterology team) to endoscopically reapproximate the rent. After 48 hours can advance to clears and discharge on full liquid diet for 1 week. This patient and her plan was discussed thoroughly with Dr. Panfilo Horta. Caryl Ballard MD Associated attestation - Panfilo Horta MD - 01/14/2022 2:52 PM EDT I have seen the patient in person and reviewed the resident's above history and I agree with the details as written. The assessment and plan were formulated in discussion with me and I agree with them as documented. Pertinent History: 61y/o female presenting with a history of schotsky's ring. Now s/p dilation with pneumomediastinum and RP air. Pertinent Imaging: CT mediastinal and RP air as mentioned above. Oral contrast given with no extrav.Swallow study without leak. Major issues addressed: Further work-up Plan: Ms. Askew presents with the above findings after dilation of a strictured esophagus. Imaging is reassuring for no evidence of full perforation. However, her injury was reportedly deep, so shewill need strict NPO status for 24 hours, IV antibiotics and a proton pump inhibitor. Plan discussedwith both Dr Petersen and Dr Lloyd from GI. Will hold off on any endoscopic treatments for now. All was explained to patient and questions were answered. Thank you for this consult, we will continue to follow along with you. Panfilo Horta MD Thoracic Surgery ED Triage - Lou Blevins RN - 01/13/2022 7:54 PM EDT Pt comes straight down from endo suite for possible perf to her esophagus after having an upper endoscopy. Pt a&ox4, pwd, non-labored resp effort, no coughing denies pain. Pt appers anxious. MDs atbedside. HPI (Adult) Stated Reason for Visit: They said I might have a minute perf in my esophagus. History Obtained From: patient, other (see comments) Precipitating Event(s): other (see comments) (esophgeal stricture.) documented in this encounter Plan of Treatment Not on filedocumented as of this encounter Procedures Procedure Name Priority Date/Time Associated Comments Diagnosis HEMOGRAM Routine 01/15/2022 9:40 AM Results f or this EDT procedure are i n the results section. DIFFERENTIAL, Routine 01/15/2022 9:40 AM Results for this AUTOMATED EDT procedure are i n the results section. HC CBC,PLT & AUTO DIFF Routine 01/15/2022 9:40 AM EDT BASIC METABOLIC PANEL Routine 01/15/2022 9:40 AM Results for this (NON-FASTING) EDT procedure are in the results section. XR FLUORO BARIUM Routine 01/13/2022 8:56 PM Resul ts for this SWALLOW (SINGLE EDT procedure ar e in CONTRAST) the results section. HEMOGRAM STAT 01/13/2022 8:00 PM Results f or this EDT procedure are i n the results section. DIFFERENTIAL, STAT 01/13/2022 8:00 PM Results for this AUTOMATED EDT procedure are i n the results section. BLUE TUBE HOLD STAT 01/13/2022 8:00 PM Results for this EDT procedure are i n the results section. HC CBC,PLT & AUTO DIFF STAT 01/13/2022 8:00 PM EDT COMPREHENSIVE STAT 01/13/2022 8:00 PM Results for this METABOLIC PANEL EDT procedure ar e in (NON-FASTING) the results section. documented in this encounter Results (ABNORMAL) Differential, Automated (01/15/2022 9:40 AM EDT) [facility] Method Time Signature Neutrophils % 83.2 % [facility] Neutr Abs (ANC) 4.23 1.70 - [facility] 6.10 [facility] x10(3)/[facility] LABORATORY Lymphocytes % 8.7 % [facility] Lymphocytes Abs 0.4 (L) 0.9 - 3.2 [facility] x10(3)/[facility] LABORATORY Monocytes % 6.5 % [facility] Monocyte Abs 0.3 0.3 - 0.9 [facility] x10(3)/[facility] LABORATORY Eosinophils % 1.0 % [facility] Eosinophils Abs 0.0 0.0 - 0.4 [facility] x10(3)/[facility] LABORATORY Basophils % 0.4 % [facility] Basophils Abs 0.0 0.0 - 0.1 [facility] x10(3)/[facility] LABORATORY Immature Gran % 0.20 % [facility] Comment: Immature granulocytes(IG's)percentage an d absolute count will include metamyelocytes, myelocytes, and promyelo cytes. Blood smears from CBCs yielding IG's will be scanned manually for concor dance. If this scan disagrees with the automated IG or if promyelocytes are not ed, a manual differential will be performed. Tiffany Gran Abs 0.01 0.00 - 0.04 x10(3)/[facility]ORATORY Specimen Anatomical Collection Method Collection Time Receive d Time (Source) Location / / Volume Laterality Blood 01/15/2022 9:40 AM EDT 10:02 AM EDT Resulting Agency Comment Spec In Lab Cece Coello MD HEMATOLOGY ORDERABLES Performing Organization Address City/State/[place] [address] Hemogram (01/15/2022 9:40 AM EDT) athologist Signature WBC 5.1 4.0 - 9.5 [facility] x10(3)/[facility] LABORATORY RBC 4.02 4.00 - [facility] x10(6)/[facility] LABORATORY Hemoglobin 12.4 11.7 - [facility] 15.5 g/dL [facility] Hematocrit 35.8 35.7 - [facility] 45.8 % [facility] MCV 89.1 82.6 - [facility]4 [facility] LABOR[facility] MCH 30.8 27.1 - [facility] 32.0 pg [facility] MCHC 34.6 31.7 - [facility] 35[facility] g/dL [facility] Platelets 170 145 - 357 [facility] x10(3)/[facility] LABORATORY RDWSD 43.3 37.0 - [facility] 46.0 [facility] LABORATORY RDWCV 13.2 11.5 - [facility] 14.1 % [facility] MPV 10.0 7.6 - 12.9 [facility] LABORATORY nRBC % Auto 0.0 % [facility] nRBC Abs Auto 0.000 0.000 - [facility] 0.000 [facility] x10(3)/[facility] LABORATORY Specimen Anatomical Collection Method Collection Time Receive d Time (Source) Location / / Volume Laterality Blood 01/15/2022 9:40 AM 2 EDT 10:02 AM EDT Resulting Agency Comment Spec In Lab Cece Coello MD HEMATOLOGY ORDERABLES Performing Organization Address City/State/[place] [address] (ABNORMAL) Basic Metabolic Panel (non-fasting) (01/15/2022 9:40 AM EDT) athologist Signature Glucose Lvl 70 65 - 199 [facility] mg/dL [facility] Comment: Diabetes: >=200 mg/dL plus symp toms BUN 13 8 - 18 mg/dL [facility] Creatinine 0.87 0.70 - 1.20 mg/dL [facility] Sodium 139 135 - 145 mmol/L [facility] Potassium 3.9 3.5 - 5.0 mmol/L [facility] Comment: Please note: ??Patients with WBC >100,00 0 may have falsely elevated Potassium levels. ??For accurate Potassium quantif ication in these patients send serum separator tube (gold top) for subsequent determinations. ??Contact the Clinical Chemistry Laboratory if there are any qu estions. Chloride 105 98 - 107 mmol/L [facility] CO2 21 (L) 22 - 31 mmol/L [facility] Anion Gap 13 5 - 15 mmol/L [facility] Calcium 9.1 8.5 - 10.5 mg/dL [facility] Estimated GFR 75 >=60 mL/min/1.73 m?? [facility] Comment: This patient's estimated GFR was calcula shania using the 2020 CKD-EPI equation. The estimated GFR can vary from the radha ured GFR by up to 30% in the absence of rapidly changing kidney function. Assess ment of the estimated GFR is not appropriate when creatinine concentratio ns are rapidly changing. For clinical situations in which a more precise estim ate of GFR is necessary, consider alternative methods of GFR estimation figueroa ch as a 24-hour urine creatinine clearance. Assignment of CKD stage 1-5 for patients with an eGFR near the transition point between stages may be based on clinical assessment of muscle mass and symptoms in addition to eGFR. Specimen Anatomical Collection Method Collection Time Receive d Time (Source) Location / / Volume Laterality Blood 01/15/2022 9:40 AM 2 EDT 10:02 AM EDT Resulting Agency Comment Spec In Lab Cece Coello MD CHEMISTRY ORDERABLES Performing Organization Address City/State/[place] [address] XR Fluoro Barium Swallow (Single Contrast) (01/13/2022 8:56 PM EDT) Anatomical Region Laterality Modality N/A Radio Fluoroscopy Specimen (Source) Anatomical Location Collection Method / Collectio n Time Received Time / Laterality Volume Impressions 01/13/2022 9:03 PM EDT No fluoroscopically evidence of esophageal leak present. Preliminary report signed by: Hola cancino at 01/13/2022 9:01 PM I have personally reviewed the image(s) and the resident's interpretation and agree with the findings, Duong matos MD at 01/13/2022 9:03 PM Thank you for letting us participate in the care of this patient. ??If you are a health care provider and have any questi ons regarding this report, please contact the number below. ??For patients who have questions please contact the health acute care registered nurse that requested your imaging first. ? Electronically signed by: Duong zacarias MD, [facility] ([phone]), at 01/13/2022 9:03 PM Narrative 01/13/2022 9:03 PM EDT EXAMINATION: XR FLUORO BARIUM SWALLOW (SINGLE CONTRAST) CLINICAL HISTORY: 61 yo with likley tear TECHNIQUE: Single contrast esophagram was performed . ??Fluoroscopic spot films were obtained. ??4/second fluoroscopic images of the esophagus and AP, LPO, and RPO obtained following water-soluble contras t. 100 cc of Omnipaque 350 administered. Fluoro time: 1.03 COMPARISON: CT chest 01/13/2022 FINDINGS: Esophagus is well distended and normal i n course and caliber. No active extravasation of contrast material. Procedure Note Duong Burns MD - 01/13/2022Form atting of this note might be different from the original. EXAMINATION: XR FLUORO BARIUM SWALLOW (S CHELY CONTRAST) CLINICAL HISTORY: 61 yo with likley tear TECHNIQUE: Single contrast esophagram was performed . Fluoroscopic spot films were obtained. 4/second fluoroscopic images o f the esophagus and AP, LPO, and RPO obtained following water-soluble contras t. 100 cc of Omnipaque 350 administered. Fluoro time: 1.03 COMPARISON: CT chest 01/13/2022 FINDINGS: Esophagus is well distended and normal i n course and caliber. No active extravasation of contrast material. IMPRESSION No fluoroscopically evidence of esophage al leak present. Preliminary report signed by: Hola cancino at 01/13/2022 9:01 PM I have personally reviewed the image(s) and the resident's interpretation and agree with the findings, Duong matos MD at 01/13/2022 9:03 PM Thank you for letting us participate in the care of this patient. If you are a health care provider and have any questi ons regarding this report, please contact the number below. For patients w ho have questions please contact the health acute care registered nurse that requested your imaging first. Sherry Bustamante MD IMG FLUORO ORDERABLES Blue Tube HOLD (01/13/2022 8:00 PM EDT) athologist Signature Blue Hold Sample in [facility]. [facility] Specimen Anatomical Collection Method Collection Time Receive d Time (Source) Location / / Volume Laterality Blood Venous Draw / 01/13/2022 8:00 PM 01/14/20 22 8:14 Unknown EDT PM EDT Braeden Hurtado MD HEMATOLOGY ORDERABLES Performing Organization Address City/State/[place] [address] Differential, Automated (01/13/2022 8:00 PM EDT) athologist Signature Neutrophils % 73.7 % [facility] Neutr Abs (ANC) 4.16 1.70 - [facility] 6.10 [facility] x10(3)/[facility] LABORATORY Lymphocytes % 16.1 % [facility] Lymphocytes Abs 0.9 0.9 - 3.2 [facility] x10(3)/[facility] LABORATORY Monocytes % 8.8 % [facility] Monocyte Abs 0.5 0.3 - 0.9 [facility] x10(3)/[facility] LABORATORY Eosinophils % 0.5 % [facility] Eosinophils Abs 0.0 0.0 - 0.4 [facility] x10(3)/[facility] LABORATORY Basophils % 0.5 % [facility] Basophils Abs 0.0 0.0 - 0.1 [facility] x10(3)/[facility] LABORATORY Immature Gran % 0.40 % [facility] Comment: Immature granulocytes(IG's)percentage an d absolute count will include metamyelocytes, myelocytes, and promyelo cytes. Blood smears from CBCs yielding IG's will be scanned manually for concor dance. If this scan disagrees with the automated IG or if promyelocytes are not ed, a manual differential will be performed. Tiffany Gran Abs 0.02 0.00 - 0.04 x10(3)/[facility] Specimen Anatomical Collection Method Collection Time Receive d Time (Source) Location / / Volume Laterality Blood 01/13/2022 8:00 PM 8:14 EDT PM EDT Resulting Agency Comment Spec In Lab Braeden Hurtado MD HEMATOLOGY ORDERABLES Performing Organization Address City/State/[place] [address] Hemogram (01/13/2022 8:00 PM EDT) P athologist Signature WBC 5.6 4.0 - 9.5 [facility] x10(3)/[facility] LABORATORY RBC 4.39 4.00 - [facility] 5.21 [facility] x10(6)/[facility] LABORATORY Hemoglobin 12.9 11.7 - [facility] 15.5 g/dL [facility] Hematocrit 38.1 35.7 - [facility] 45.8 % [facility] MCV 86.8 82.6 - [facility]4 fL [facility] MCH 29.4 27.1 - [facility] 32.0 pg [facility] MCHC 33.9 31.7 - [facility] 35.0 g/dL [facility] Platelets 182 145 - 357 [facility] x10(3)/[facility] LABORATORY RDWSD 42.1 37.0 - [facility] 46.0 [facility] LABORATORY RDWCV 13.2 11.5 - [facility] 14.1 % [facility] MPV 9.5 7.6 - 12.9 [facility] LABORATORY nRBC % Auto 0.0 % [facility] nRBC Abs Auto 0.000 0.000 - [facility] 0.000 [facility] x10(3)/[facility] LABORATORY Specimen Anatomical Collection Method Collection Time Receive d Time (Source) Location / / Volume Laterality Blood 01/13/2022 8:00 PM 8:14 EDT PM EDT Resulting Agency Comment Spec In Lab Braeden Hurtado MD HEMATOLOGY ORDERABLES Performing Organization Address City/State/[place] [address] Comprehensive metabolic panel (non-fasting) (01/13/2022 8:00 PM EDT) P athologist Signature Glucose Lvl 91 65 - 199 [facility] mg/dL [facility] Comment: Diabetes: >=200 mg/dL plus symp toms BUN 9 8 - 18 mg/dL [facility] Creatinine 0.83 0.70 - 1.20 mg/dL [facility] Sodium 140 135 - 145 mmol/L [facility] Potassium 4.0 3.5 - 5.0 mmol/L [facility] Comment: Please note: ??Patients with WBC >100,00 0 may have falsely elevated Potassium levels. ??For accurate Potassium quantif ication in these patients send serum separator tube (gold top) for subsequent determinations. ??Contact the Clinical Chemistry Laboratory if there are any qu estions. Chloride 105 98 - 107 mmol/L [facility] CO2 24 22 - 31 mmol/L [facility] Anion Gap 11 5 - 15 mmol/L [facility] Calcium 9.3 8.5 - 10.5 mg/dL [facility] Total Protein 6.6 6.1 - 8.0 g/dL [facility] Albumin 4.4 3.2 - 5.2 g/dL [facility] AST 21 0 - 30 unit/L [facility] ALT 11 0 - 30 unit/L [facility] Alk Phos 52 35 - 105 unit/L [facility] Total Bilirubin 1.2 0.2 - 1.3 mg/dL [facility] Estimated GFR 79 >=60 mL/min/1.73 m?? [facility] Comment: This patient's estimated GFR was calcula shania using the 2020 CKD-EPI equation. The estimated GFR can vary from the radha ured GFR by up to 30% in the absence of rapidly changing kidney function. Assess ment of the estimated GFR is not appropriate when creatinine concentratio ns are rapidly changing. For clinical situations in which a more precise estim ate of GFR is necessary, consider alternative methods of GFR estimation figueroa ch as a 24-hour urine creatinine clearance. Assignment of CKD stage 1-5 for patients with an eGFR near the transition point between stages may be based on clinical assessment of muscle mass and symptoms in addition to eGFR. Specimen Anatomical Collection Method Collection Time Receive d Time (Source) Location / / Volume Laterality Blood 01/13/2022 8:00 PM 8:14 EDT PM EDT Resulting Agency Comment Spec In Lab Sherry Bustamante MD CHEMISTRY ORDERABLES Performing Organization Address City/State/[place] [address] documented in this encounter Visit Diagnoses Diagnosis Acute mediastinitis - Primary documented in this encounter Admitting Diagnoses Diagnosis Acute mediastinitis documented in this encounter Administered Medications Inactive Administered Medications - up to 3 most recent administrations Medication Order MAR Action Action Date Dose Rate Site amoxicillin-clavulanate (Augmentin Given 01/16/2022 6:26 AM EDT 875 mg ES-600) (120-8.58 mg/mL) oral liquid 875 mg 875 mg, Oral, EVERY 12 HOURS, First dose on Tue01/15/22 at 1800, Until Discontinued, Dose in mg is based on amoxicillin component., Routine Given 01/15/2022 5:26 PM EDT 875 mg diazePAM (Valium) (5 mg/mL) injection syringe 5 Given 01/13/2022 8:11 PM EDT 5 mg mg 5 mg, Intravenous, ONCE, 1 dose, On Tue01/13/22 at 2004, Please note size of syringe compared to ordered dose., Routine diphenhydrAMINE (Benadryl) (50 mg/mL) Given 01/14/2022 2:54 AM E DT 25 mg injection 25 mg 25 mg, Intravenous, ONCE, 1 dose, On Tue01/14/22 at 0142, Routine fluconazole (Diflucan) 400 mg in New Bag 01/13/2022 9:19 PM ED T 400 mg 100 mL/hr sodium chloride 0.9% 200 mL infusion 400 mg, Intravenous, EVERY 24 HOURS, First dose (after last modification) on Tue01/13/22 at 1959, Until Discontinued, Administer over 120 Minutes, Indication for (Active or Suspected): Bacteremia/Sepsis, Restricted Antibiotic: Please indicate the most appropriate choice: Ordered from Emergency Department iohexoL (Omnipaque) (350 mg/mL) solution Given 01/13/2022 8:54 P M EDT 100 mLs 0-50 mL 0-50 mL, Oral, ONCE PRN, 1 dose, Starting on Tue01/13/22 at 2047, Until Tue01/13/22 at 2054, Per Protocol, Warning Vesicant/Irritant Medication , Radiology Contrast, Routine lactated ringers infusion New Bag 01/15/2022 10:07 AM EDT 125 mL/hr 125 mL/hr 125 mL/hr, Intravenous, CONTINUOUS, Starting on Tue01/14/22 at 0809, Until Tue01/15/22 at 1458 New Bag 01/15/2022 3:18 AM EDT 125 mL/hr 125 mL/hr New Bag 01/14/2022 6:54 PM EDT 125 mL/hr 125 mL/hr LORazepam (Ativan) tablet 0.5 mg Given 01/15/2022 10:05 PM EDT 0.5 mg 0.5 mg, Sublingual, EVERY 8 HOURS PRN, Starting on Tue01/14/22 at 1404, Until Tue01/15/22 at 2242, Anxiety, DO NOT SWALLOW. For sublingual dosing only., Routine Given 01/15/2022 12:29 AM EDT 0.5 mg Given 01/14/2022 2:29 PM EDT 0.5 mg LORazepam (Ativan) tablet 0.5 mg Given 01/15/2022 10:59 PM EDT 0.5 mg 0.5 mg, Sublingual, ONCE, 1 dose, On Tue01/15/22 at 2330, DO NOT SWALLOW. For sublingual dosing only., Routine pantoprazole (Protonix) injection 40 mg Given 01/16/2022 9:39 AM EDT 40 mg 40 mg, Intravenous, 2 TIMES DAILY, First dose on Tue01/13/22 at 2210, Until Discontinued Given 01/15/2022 9:29 PM EDT 40 mg Given 01/15/2022 8:02 AM EDT 40 mg piperacillin-tazobactam (Zosyn) New Bag 01/15/2022 8:01 AM 3.375 g 12.5 mL/hr 3.375 g vial attach to sodium EDT chloride 0.9% 50 mL Mini-Bag Plus 3.375 g, Intravenous, EVERY 8 HOURS, First dose on Tue01/14/22 at 1700, Until Discontinued, Administer over 4 Hours, Warning Vesicant/Irritant Medication Do not administer or Y-site with lactated ringers., Indication for (Active or Suspected): Bacteremia/Sepsis New Bag 01/15/2022 1:29 AM EDT 3.375 g 12.5 mL/hr New Bag 01/14/2022 6:07 PM EDT 3.375 g 12.5 mL/hr piperacillin-tazobactam (Zosyn) 4.5 New Bag 01/13/2022 8:13 PM EDT 4.5 g 200 mL/hr g vial attach to sodium chloride 0.9% 100 mL Mini-Bag Plus 4.5 g, Intravenous, ONCE, 1 dose, On Tue01/13/22 at 1946, Administer over 0.5 Hours, Warning Vesicant/Irritant Medication Do not administer or Y-site with lactated ringers., Indication for (Active or Suspected): Bacteremia/Sepsis piperacillin-tazobactam (Zosyn) 4.5 g New Bag 01/14/2022 8:47 AM EDT 4.5 g 25 mL/hr vial attach to sodium chloride 0.9% 100 mL Mini-Bag Plus 4.5 g, Intravenous, EVERY 8 HOURS, First dose (after last reorder) on Tue01/14/22 at 0814, Until Discontinued, Administer over 4 Hours, Warning Vesicant/Irritant Medication Do not administer or Y-site with lactated ringers., Indication for (Active or Suspected): Bacteremia/Sepsis sodium chloride 0.9 % (flush) (BD PosiFlush Given 01/16/2022 9:3 9 AM EDT 5 mLs Normal Saline 0.9) flush 5 mL 5 mL, Intravenous, 2 TIMES DAILY, First dose on Tue01/14/22 at 0900, Until Discontinued, Routine Given 01/15/2022 9:29 PM EDT 10 mLs Given 01/15/2022 8:02 AM EDT 5 mLs vancomycin (Vancocin) 1 gram in New Bag 01/15/2022 10:15 AM EDT 1 g 250 mL/hr sodium chloride 0.9% 250 mL infusion 1 g, Intravenous, EVERY 12 HOURS, First dose on Tue01/14/22 at 1100, Until Discontinued, Administer over 60 Minutes, Maximum infusion rate is 1 gram/hour. If flushing of the face, neck, upper body, arms, and/or back occurs decrease infusion rate by 50% to reduce the severity of symptoms. This medication may have an associated drug lab level. Please see MAR for scheduled level. Warning Vesicant/Irritant Medication , Indication for (Active or Suspected): GI/Intra-abdominal New Bag 01/14/2022 11:15 PM EDT 1 g 250 mL/hr vancomycin (Vancocin) 2 gram in New Bag 01/13/2022 10:24 PM EDT 2 g 250 mL/hr sodium chloride 0.9% 500 mL infusion 2 g, Intravenous, ONCE, 1 dose, On Tue01/13/22 at 2216, Administer over 120 Minutes, Maximum infusion rate is 1 gram/hour. If flushing of the face, neck, upper body, arms, and/or back occurs decrease infusion rate by 50% to reduce the severity of symptoms. This medication may have an associated drug lab level. Please see MAR for scheduled level. Warning Vesicant/Irritant Medication , Indication for (Active or Suspected): GI/Intra-abdominal documented in this encounter Active and Recently Administered Medications Times are shown in EDT. Scheduled Medication Order 01/14/2022 01/15/2022 01/16/2022 amoxicillin-clavulanate (Augmentin ES-600) (120-8.58 mg/mL) oral liquid 875 mg 1726 (Given - Provider: Rosalind Raoms, RN) 0626 (Given - Provider: Italia Dias, MONY) 875 mg, Oral, EVERY 12 HOURS, First dose on Tue01/15/22 at 1800, Until Discontinued, Dose in mg is based on amoxicillin component., Routine diphenhydrAMINE (Benadryl) (50 mg/mL) injection 25 mg (COMPLETED) 253 (Given - Provider: Luo Blevins RN) 25 mg, Intravenous, ONCE, 1 dose, On Tue01/14/22 at 0142, Routin e enoxaparin (Lovenox) (40 mg/0.4 mL) subcutaneous injec tion 40 mg 2099 (Not Given - Provider: Jeanna Geronimo RN - Reason: Patient/family refused - Comment: educated on DVT ppx.) 2128 (Not Given - Provider: Italia christian RN - Reason: Patient/family refused) 40 mg, Subcutaneous, NIGHTLY, First dose on Maria A 01/14/22 at 2100, Until Discontinued, Routine LORazepam (Ativan) tablet 0.5 mg (COMPLETED) 2258 (Given - Provider: Italia Dias RN) 0.5 mg, Sublingual, ONCE, 1 dose, On Tue01/15/22 at 2330, DO NOT SWALLOW. For sublingual dosing only., Routine pantoprazole (Protonix) injection 40 mg 08 (Given - Provider: Kenia Gutierrez RN)2099 (Given - Provider: Jeanna Geronimo RN) 08 (Given - Provider: Rosalind Ramos, MONY)2128 (Given - Provider: Italia Dias RN) 938 (Given - Provider: Cydney Martin RN) 40 mg, Intravenous, 2 TIMES DAILY, First dose on Tue01/13/22 at 2210, Until Discontinued piperacillin-tazobactam (Zosyn) 3.375 g vial attach to sodium chloride 0.9% 50 mL Mini-Bag Plus (CANCELED) 1807 (New Bag - Provider: Sherry bronson RN)2324 (Stopped - Provider: Jeanna Geronimo, MONY) 0129 (New Bag - Provider: Jeanna Geronimo RN)0605 (Stopped - Provider: Jeanna Geronimo RN)0801 (New Bag - Provider: Rosalind Ramos, MONY)1201 (Stopped - Provider: Rosalind Ramos RN) 3.375 g, Intravenous, EVERY 8 HOURS, Fir st dose on Tue01/14/22 at 1700, Until Discontinued, Administer over 4 Hours, Warning Vesicant/Irritant Medication Do not administer or Y-site with lactated ringers., Indication for (Active or Suspected): Bacteremia/Sepsi s piperacillin-tazobactam (Zosyn) 4.5 g vi al attach to sodium chloride 0.9% 100 mL Mini-Bag Plus (CANCELED) 0847 (New Bag - Provider: Kenia milton RN)1347 (Stopped - Provider: Sherry Mccray RN - Comment: Time automatically adjusted from order being discontinued) 4.5 g, Intravenous, EVERY 8 HOURS, First dose (after last reorder) on Tue01/14/22 at 0814, Until Discontinued, Administer over 4 Hours, Warning Vesicant/Irritant Medication Do not administer or Y- site with lactated ringers., Indication for (Active or Suspected): Bacteremia/Sepsis sodium chloride 0.9 % (flush) (BD PosiFlush Normal Anatoly ine 0.9) flush 5 mL 0845 (Given - Provider: Kenia Gutierrez RN)2100 (Given - Provider: Jeanna Geronimo RN) 0802 (Given - Provider: Rosalind lafleur RN)2129 (Given - Provider: Italia Dias RN) 0939 (Given - Provider: Cydney E Martin, R N) 5 mL, Intravenous, 2 TIMES DAILY, First dose on Maria A 01/14/22 at 0900, Until Discontinued, Routine vancomycin (Vancocin) 1 gram in sodium chloride 0.9% 2 50 mL infusion (CANCELED) 1100 (Not Given - Provider: Kenia Gutierrez RN - Reason: Per MD Order)2315 (New Bag - Provider: Jeanna Geronimo, MONY) 0035 (Stopped - Provider: Jeanna Geronimo, MONY)1015 (New Bag - Provider: Rosalind Ramos, MONY)1115 (Stopped - Provider: Rosalind Ramos, MONY) 1 g, Intravenous, EVERY 12 HOURS, First dose on Tue01/14/22 at 1100, Until Discontinued, Administer over 60 Minutes, Maximum infusion rate is 1 gram/hour. If flushing of the face, neck, upper body, arms , and/or back occurs decrease infusion r ate by 50% to reduce the severity of symptoms. This medication may have an associated drug lab level. Please see MAR for scheduled level. Warning Vesicant/Irri tant Medication , Indication for (Active or Suspected): GI/In tra-abdominal Continuous Medication Order 01/14/2022 01/15/2022 01/16/2022 lactated ringers infusion (CANCELED) 1043 (New Bag - P rovider: Kenia Gutierrez RN)1854 (New Bag - Provider: Megan Guardado, MONY) 0318 (New Bag - Provider: Jeanna Geronimo, MONY)1007 (New Bag - Provider: Rosalind Ramos RN)1458 (Stopped - Provider: Rosalind Ramos RN) 125 mL/hr, Intravenous, CONTINUOUS, Star ting on Tue01/14/22 at 0809, Until Tue01/15/22 at 1458 PRN Medication Order 01/14/2022 01/15/2022 01/16/2022 LORazepam (Ativan) tablet 0.5 mg (CANCELED) 1429 (Give n - Provider: Megan Guardado, MONY) 0029 (Given - Provider: Jeanna Geronimo , MONY)2205 (Given - Provider: Italia Dias RN) 0.5 mg, Sublingual, EVERY 8 HOURS PRN, S tarting on Maria A 01/14/22 at 1404, Until 01/15/22 at 2242, Anxiety, DO NOT SWALLOW. For sublingual dosing only., Routine sodium chloride 0.9 % (flush) (BD PosiFlush Normal Saline 0.9) f lush 5-20 mL 5-20 mL, Intravenous, EVERY 1 MIN PRN, S tarting on Maria A 01/14/22 at 0807, Until 01/16/22 at 1626, flush, Flush pertains to all indwelling lines. Flush per protocol found in the job aid using the link provided on this medication record., Routine documented in this encounter Care Teams Curb Setter Relationship Specialty Start Date End Date Rhonda Oliva APRN PCP - General General Internal Medicine 01/13/[address] [address] documented as of this encounter
--- OUTSIDE RECORDS SUMMARY | 2022-04-30 01:22 | XMS_ITS | Encounter Summary ---
:1960 Author Organization [facility] [place] [address] Care Team Providers Name Role Phone None Primary Care Provider Unavailable Reason for Visit Reason Comments Medication Refill Encounter Details Date Type Department Care Team Description 05/23/2021 Refill Gastroenterology at [facility] Marla Petersen, Autoimmune hepatitis [facility] [place] [address] [facility] [phone] [place], [place] [address] Social History Tobacco Use Types [...] hepatitis documented in this encounter Care Teams Swimming Pool Installer Relationship Specialty Start Date End Date None PCP - General 09/27/17 01/12/22 None documented as of this encounter
--- OUTSIDE RECORDS SUMMARY | 2022-04-30 01:22 | XMS_ITS | Encounter Summary ---
:1960 Author Organization [facility] [place] [address] Care Team Providers Name Role Phone None Primary Care Provider Unavailable Encounter Details Date Type Department Care Team Description 10/03/2017 Orders Only Gastroenterology at [facility] Marla Petersen, Autoimmune hepatitis [facility] [place] [address] [facility] [phone] [place] [address] Social History Tobacco Use Types Packs/Day Years Used Date Former Smoker Smokeless Tobacco: Never Used Sex Assigned at Date Recorded Not on file documented as of this encounter Plan of Treatment Not on filedocumented as of this encounter Visit Diagnoses Diagnosis Autoimmune hepatitis documented in this encounter Care Teams Integration Technician Relationship Specialty Start Date End Date None PCP - General 09/27/17 01/12/22 None documented as of this encounter
--- OUTSIDE RECORDS SUMMARY | 2022-04-30 01:22 | XMS_ITS | Encounter Summary ---
:1960 Author Organization [facility] Address [facility] [place] [address] Care Team Providers Name Role Phone None Primary Care Provider Unavailable Encounter Details Date Type Department Care Team Description 07/30/2021 External Results [place] at [facility] Marla Petersen, [facility] [place] [address] [facility] [phone] [place] [address] Social History Tobacco Use Types [...] Comme nts EXTERNAL LAB CBC CMP Routine 07/29/2021 Results for this THYROID RESULTS PANEL proced ure are in the results section . documented in this encounter Results CBC / CMP / Thyroid External Results (07/29/2021) P athologist Signature Total Protein 7.2 Albumin 4.6 Total Bilirubin 0.7 Alk Phos 58 AST 28 ALT 20 Historical Provider POINT OF CARE TEST ORDERABLE S documented in this encounter Visit Diagnoses Not on filedocumented in this encounter Care Teams Guard Driver Relationship Specialty Start Date End Date None PCP - General 09/27/17 01/12/22 None documented as of this encounter
--- OUTSIDE RECORDS SUMMARY | 2022-04-30 01:22 | XMS_ITS | Encounter Summary ---
:1960 Author Organization [facility] [place] [address] Care Team Providers Name Role Phone Hazel Rhonda Palomo HINSON Primary Care Provider [phone] Encounter Details Date Type Department Care Team Description 02/12/2022 TH Visit Thoracic Surgery Panfilo Horta History of esophagogastroduodenoscopy (EGD); (TeleHealth) at [facility] MD Ronald Pneumomediastinum [facility] [address], [place] [id number] [phone] Social History Tobacco Use Types Packs/Day Years Used Date Former Smoker Smokeless Tobacco: Never Used Alcohol Use Standard Drinks/Week Comments Yes 4 (1 standard drink = 0.6 oz pure alcoho l) Sex Assigned at Date Recorded Not on file documented as of this encounter Patient Instructions Patient InstructionsWiJayshree rashid RN - 02/12/2022 9:30 AM EDT Thank you for visiting Dr. Horta in clinic 02/12/22 Dr. Horta has stated that you are now on an as needed basis with Thoracic Surgery. Please call Thoracic surgery at with any questions or concerns. documented in this encounter Progress Notes Panfilo Horta MD - 02/12/2022 9:30 AM EDT Images from the original note were not included. Thoracic Surgery Attending Outpatient Follow Up Note Panfilo Horta MD [place] [phone] FAX: Pre Op Dx: Pneumomediastinum resulting from Esophageal Microperforation s/p dilation for Schatzki's ring Post Op Dx: Pneumomediastinum resulting from Esophageal Microperforation s/p dilation for Schatzki'sring Treatment: Conservative management with NPO, antibiotics and serial observation Pathology: Not applicable Complications: None HPI: I am seeing Ms. Askew in consultation following her hospitalization for a microperforation resulting in pneumomediastinum and a Juhi-Butler tear following dilation for Schatzki's ring by Mariella colleagues. Ms. Askew reports that she has been doing quite well. Her breathing is nonlabored. She is able to tolerate a regular diet including bread and has had no difficulties. She does state that she has mild discomfort which she talked to her GI specialist, Dr. Fuentes about who stated that this was normal. Other than that she completed her course of antibiotics and has no other concerns. She notably does not have any f/c/n/v/SOB/CP. Medications: Current Outpatient Medications on File Prior to Visit Medication Sig Dispense Refill ??? omeprazole (PriLOSEC) 40 mg Capsule, Delayed Release(E.C.) Take 1 capsule by mouth 2 times daily. Resume taking previous once daily dose in 1 month (around 02/16/2022) 60 capsule 0 ??? azaTHIOprine (Imuran) 50 mg Tablet Take 1 tablet by mouth daily. (Patient taking differently: Take 50 mg by mouth nightly.) 90 tablet 0 ??? LORazepam (ATIVAN) 0.5 mg Tablet Take 0.5 mg by mouth as needed for Anxiety (prior to procedures). ??? eszopiclone (LUNESTA) 2 mg Tablet Take 2 mg by mouth nightly as needed. No current facility-administered medications on file prior to visit. Physical Exam: There were no vitals taken for this visit. General Appearance: Alert, cooperative, no distress, appears stated age Nk: Trachea appears midline Lungs: Breathing appears non-labored Heart: Deferred Abdomen: No reports of pain. Abdomen with normal appearance. Extremities: Extremities normal, atraumatic, no cyanosis or edema Wound/Incision: Not applicable Imaging: I have independently visualized the following studies: CXR (02/01/2022): Assessment: Anika Reyes is a 61 y.o. female s/p the above complication from and EGD with dilation. Overallshould be appears to be doing quite well. She has had no fevers, chills, shortness of breath or chest pain. I told her that at this point she can continue to follow-up as an as-needed basis. I told herto please call her office if she has any new concerns. She was agreeable to this. Plan: 1. No need for further surgical intervention. She appears to be healing quite well. 2. 30 minutes of exercise daily at a minimum 3. RTC on an as-needed basis. 4. Follow-up with GI as scheduled. 5. Call with any questions I have appreciated the opportunity to participate in Ms. Reyes's care. Panfilo Horta MD Thoracic Surgery documented in this encounter Plan of Treatment Not on filedocumented as of this encounter Visit Diagnoses Diagnosis History of esophagogastroduodenoscopy (E GD) Pneumomediastinum Interstitial emphysema documented in this encounter Care Teams Sustainable Products Marketing Manager Relationship Specialty Start Date End Date Rhonda Oliva APRN PCP - General General Internal Medicine 01/13/22 [facility] [place] [address] documented as of this encounter
--- OUTSIDE RECORDS SUMMARY | 2022-04-30 01:22 | XMS_ITS | Encounter Summary ---
:1960 Author Organization [facility] [place] [address] Care Team Providers Name Role Phone HazelRhonda APRN Primary Care Provider Reason for Referral Diagnostic Test (Emergency) - Authorized Specialty Diagnoses / Procedures Referred By Contact Refer red To Contact Radiology Diagnoses Abnormal findings on esophagogastroduodenoscopy (EGD) Marla Petersen MD [facility] Rad Xray Procedures XR Fluoro Barium Swallow (Single Contrast) [address], [place] [id number] Referral ID Status Reason Start Expiration Visits Visits Date Date Requested Authorized [id number] Authorized Specialty 01/13/2022 07/16/2023 1 1 Service Requested Reason for Visit Auth/Cert Specialty Diagnoses / Procedures Referred By Contact Refer red To Contact Diagnoses Acute mediastinitis Cece Coello MD [facility] Procedures EMERGENCY IPI [facility] [place] [address] Referral ID Status Reason Start Date Expiration Date Visits Requ ested Visits Authorized [id number] 1 1 Encounter Details Date Type Department Care Team Description 01/13/2022 Hospital XRay at [facility] Abnormal findings on Encounter 1 [facility] esophagogas troduodenoscopy (E[place]) [place] [address] Social History Tobacco Use Types Packs/Day Years [...] Associated Diagnoses Order S chedule XR Fluoro Imaging STAT Abnormal findings on 1 Occur rences Barium Swallow esophagogastroduodenoscopy (EGD) starting 01/13/2022 (Single until 2 Contrast) documented as of this encounter Visit Diagnoses Diagnosis Abnormal findings on esophagogastroduode noscopy (EGD) documented in this encounter Care Teams Project Intern Relationship Specialty Start Date End Date Rhonda Oliva APRN PCP - General General Internal Medicine 01/13/[address] [place] [address] documented as of this encounter
--- OUTSIDE RECORDS SUMMARY | 2022-04-30 01:22 | XMS_ITS | Encounter Summary ---
:1960 Author Organization [facility] [place] [address] Care Team Providers Name Role Phone Rhonda Oliva APRN Primary Care Provider [phone] Encounter Details Date Type Department Care Team Description 01/25/2022 TH Visit Gastroenterology at [facility] Marla Petersen, Autoimmune hepatitis; (TeleHealth) [facility] Lilia abarca MD [place]ys[place], [place] [address] [facility] [phone] [place] [address] Social History Tobacco Use Types Packs/Day Years Used Date Former Smoker Smokeless Tobacco: Never Used Alcohol Use Standard Drinks/Week Comments Yes 4 (1 standard drink = 0.6 oz pure alcoho l) Sex Assigned at Date Recorded Not on file documented as of this encounter Progress Notes Marla Petersen MD - 01/25/2022 9:30 AM EDT GASTROENTEROLOGY TELEMEDICINE PROGRAM - ESTABLISHED PATIENT VISIT [...] EGD 03/2018 was negative, normal esophageal biopsies?? - EGD 01/13/22 - ring dilated to 18 mm complicated by esophageal perforation, managed conservatively with antibiotics and NPO Interval history: She reports no pain and feels fine. She is sticking to the diet. No dysphagia. Review of systems: 14-point review of systems [...] mg by mouth nightly as needed. No facility-administered medications prior to visit. Allergies: is allergic to epinephrine. Past Medical History: [facility]LY [facility] Past Surgical History: has a past surgical history that includes Upper Gi Endoscopy, Biopsy (05689) (N/A, 03/29/2018); Upper GI Endoscopy, Diagnostic (73678) (N/A, 01/13/2022); and Up Gi Endoscopy, Ball Dil, 30Mm ([id number]) (N/A, 01/13/2022). Social History: reports that she has quit smoking. She has never used smokeless tobacco. She reportscurrent alcohol use of about 4.0 standard drinks of alcohol per week. She reports that she does not use drugs. Physical exam: No Physical Examination performed during this telemedicine visit Laboratory studies, imaging, and procedures (my review of prior records): Admission on 01/13/2022, Discharged on 01/16/2022 Component Date Value Ref Range Status ??? Glucose Lvl 01/13/2022 91 65 - 199 mg/dL Final ??? BUN 01/13/2022 9 8 - 18 mg/dL Final ??? Creatinine 01/13/2022 0.83 0.70 - 1.20 mg/dL Final ??? Sodium 01/13/2022 140 135 - 145 mmol/L Final ??? Potassium 01/13/2022 4.0 3.5 - 5.0 mmol/L Final ??? Chloride 01/13/2022 105 98 - 107 mmol/L Final ??? CO2 01/13/2022 24 22 - 31 mmol/L Final ??? Anion Gap 01/13/2022 11 5 - 15 mmol/L Final ??? Calcium 01/13/2022 9.3 8.5 - 10.5 mg/dL Final ??? Total Protein 01/13/2022 6.6 6.1 - 8.0 g/dL Final ??? Albumin 01/13/2022 4.4 3.2 - 5.2 g/dL Final ??? AST 01/13/2022 21 0 - 30 unit/L Final ??? ALT 01/13/2022 11 0 - 30 unit/L Final ??? Alk Phos 01/13/2022 52 35 - 105 unit/L Final ??? Total Bilirubin 01/13/2022 1.2 0.2 - 1.3 mg/dL Final ? ? Estimated GFR 01/13/2022 79 >=60 mL/min/1.73 m?? Final ??? WBC 01/13/2022 5.6 4.0 - 9.5 x10(3)/mcL Final ??? RBC 01/13/2022 4.39 4.00 - 5.21 x10(6)/mcL Final ??? Hemoglobin 01/13/2022 12.9 11.7 - 15.5 g/dL Final ??? Hematocrit 01/13/2022 38.1 35.7 - 45.8 % Final ??? MCV 01/13/2022 86.8 82.6 - 94.4 fL Final ??? MCH 01/13/2022 29.4 27.1 - 32.0 pg Final ??? MCHC 01/13/2022 33.9 31.7 - 35.0 g/dL Final ??? Platelets 01/13/2022 182 145 - 357 x10(3)/mcL Final ??? RDWSD 01/13/2022 42.1 37.0 - 46.0 fL Final ??? RDWCV 01/13/2022 13.2 11.5 - 14.1 % Final ??? MPV 01/13/2022 9.5 7.6 - 12.9 fL Final ??? nRBC % Auto 01/13/2022 0.0 % Final ??? nRBC Abs Auto 01/13/2022 0.000 0.000 - 0.000 x10(3)/mcL Final ??? Neutrophils % 01/13/2022 73.7 % Final ??? Neutr Abs (ANC) 01/13/2022 4.16 1.70 - 6.10 x10(3)/mcL Final ??? Lymphocytes % 01/13/2022 16.1 % Final ??? Lymphocytes Abs 01/13/2022 0.9 0.9 - 3.2 x10(3)/mcL Final ??? Monocytes % 01/13/2022 8.8 % Final ??? Monocyte Abs 01/13/2022 0.5 0.3 - 0.9 x10(3)/mcL Final ??? Eosinophils % 01/13/2022 0.5 % Final ??? Eosinophils Abs 01/13/2022 0.0 0.0 - 0.4 x10(3)/mcL Final ??? Basophils % 01/13/2022 0.5 % Final ??? Basophils Abs 01/13/2022 0.0 0.0 - 0.1 x10(3)/mcL Final ??? Immature Gran % 01/13/2022 0.40 % Final ??? Tiffany Gran Abs 01/13/2022 0.02 0.00 - 0.04 x10(3)/mcL Final ??? Blue Hold 01/13/2022 Sample in lab. Final ??? Glucose Lvl 01/15/2022 70 65 - 199 mg/dL Final ??? BUN 01/15/2022 13 8 - 18 mg/dL Final ??? Creatinine 01/15/2022 0.87 0.70 - 1.20 mg/dL Final ??? Sodium 01/15/2022 139 135 - 145 mmol/L Final ??? Potassium 01/15/2022 3.9 3.5 - 5.0 mmol/L Final ??? Chloride 01/15/2022 105 98 - 107 mmol/L Final ??? CO2 01/15/2022 21 (A) 22 - 31 mmol/L Final ??? Anion Gap 01/15/2022 13 5 - 15 mmol/L Final ??? Calcium 01/15/2022 9.1 8.5 - 10.5 mg/dL Final ? ? Estimated GFR 01/15/2022 75 >=60 mL/min/1.73 m?? Final ??? WBC 01/15/2022 5.1 4.0 - 9.5 x10(3)/mcL Final ??? RBC 01/15/2022 4.02 4.00 - 5.21 x10(6)/mcL Final ??? Hemoglobin 01/15/2022 12.4 11.7 - 15.5 g/dL Final ??? Hematocrit 01/15/2022 35.8 35.7 - 45.8 % Final ??? MCV 01/15/2022 89.1 82.6 - 94.4 fL Final ??? MCH 01/15/2022 30.8 27.1 - 32.0 pg Final ??? MCHC 01/15/2022 34.6 31.7 - 35.0 g/dL Final ??? Platelets 01/15/2022 170 145 - 357 x10(3)/mcL Final ??? RDWSD 01/15/2022 43.3 37.0 - 46.0 fL Final ??? RDWCV 01/15/2022 13.2 11.5 - 14.1 % Final ??? MPV 01/15/2022 10.0 7.6 - 12.9 fL Final ??? nRBC % Auto 01/15/2022 0.0 % Final ??? nRBC Abs Auto 01/15/2022 0.000 0.000 - 0.000 x10(3)/mcL Final ??? Neutrophils % 01/15/2022 83.2 % Final ??? Neutr Abs (ANC) 01/15/2022 4.23 1.70 - 6.10 x10(3)/mcL Final ??? Lymphocytes % 01/15/2022 8.7 % Final ??? Lymphocytes Abs 01/15/2022 0.4 (A) 0.9 - 3.2 x10(3)/mcL Final ??? Monocytes % 01/15/2022 6.5 % Final ??? Monocyte Abs 01/15/2022 0.3 0.3 - 0.9 x10(3)/mcL Final ??? Eosinophils % 01/15/2022 1.0 % Final ??? Eosinophils Abs 01/15/2022 0.0 0.0 - 0.4 x10(3)/mcL Final ??? Basophils % 01/15/2022 0.4 % Final ??? Basophils Abs 01/15/2022 0.0 0.0 - 0.1 x10(3)/mcL Final ??? Immature Gran % 01/15/2022 0.20 % Final ??? Tiffany Gran Abs 01/15/2022 0.01 0.00 - 0.04 x10(3)/mcL Final Admission on 01/13/2022, Discharged on 01/13/2022 Component Date Value Ref Range Status ??? UPPER GI ENDOSCOPY 01/13/2022 Final Value:[facility] Endoscopy Procedure Date: 01/13/2022 2:05 PM Patient Name: Anika Reyes Date of : 1960 Age: 61 Order #: [id number] Instrument Name: [id number] Procedure: Upper GI endoscopy Indications: Dysphagia Providers: Marla Petersen MD, Scarlett Smith RN, Panfilo Reza, Rail Transportation Tabeler Referring MD: Marla Petersen Medicines: Midazolam 4 mg IV, Fentanyl 200 micrograms IV Complications: No immediate complications. Procedure: Pre-Anesthesia Assessment: - Prior to the procedure, a History and Physical was performed, and patient medications and allergies were reviewed. The patient's tolerance of previous anesthesia was also reviewed. The risks and benefits of the procedure and the sedation options and risks were discussed with the patient. All questions were answered, and informed consent was obtained. Prior Anticoagulants: The patient has taken no anticoagulant or antiplatelet agents. ASA Grade Assessment: II - A patient with mild systemic disea se. After reviewing the risks and benefits, the patient was deemed in satisfactory condition to undergo the procedure. The procedure, indications, benefits, risks and alternatives were explained to the patient. Specifically discussed were potential complications including, but not limited to, bleeding, perforation, infection, missing a cancer, and adverse medication reactions. The Endoscope was introduced through the mouth, and advanced to the second part of duodenum The upper GI endoscopy was accomplished without difficulty. The patient tolerat ed the procedure poorly due to the patient's agitation. Findings: Esophagogastric landmarks were identified: the Z-line was found at 37 cm, the upper extent of the gastric folds was found at 37 cm and the site of hiatal narrowing was found at 39 cm from the incisors. A non-obstructing Schatzki ring was found at the gastroesophageal junction. A TTS dilator was passed through the scope. Dilation with a 15-16.5-18 mm balloon dilator was performed to 18 mm. The dilation site was examined and showed significant mucosal disruption with a rent. A 2 cm hiatal hernia was present. The entire examined stomach was normal. The examined duodenum was normal. Moderate Sedation: I was present during the intraservice time as document ed by the sedation RN. Impression: - Esophagogastric landmarks identified. - Non-obstructing Schatzki ring. Dilated. - 2 cm hiatal hernia. - Normal stomach. - Normal examined duodenum. - No specimens collected. Recommendation: - Perform an esophagram today. - Clear liquid diet for 3 days, then advance as tolerated to resume previous diet. - Use Prilosec (omeprazole) 40 mg PO BID for 8 weeks. - Use Zofran (ondansetron) 4 mg PO PRN. - Return to referring physician. - Recommend anesthesia for any future upper endosocpy. Procedure Code(s): --- Professional --- 06712, Esophagogastroduodenoscopy, flexible, transoral; with transendoscopic balloon dilation of esophagus (less than 30 mm diameter) CPT copyright 2020 [employer]. All rights reserved. The codes documented in this report are preliminary and upon orthopedic coder review may be revised to meet current compliance requirements. Attending Participation: I personally performed the entire procedure. Marla Petersen MD Marla Petersen MD 01/13/2022 3:09:56 PM This report has been signed electronically. Number of Addenda: 0 Note Initiated On: 01/13/2022 2:05 PM Assessment/Plan: Ms. Reyes is a 61 y.o. patient with autoimmune hepatitis and dysphagia (prior dilation of ring).Her AIH is stable on AZA 50 mg daily, plan on repeat labs and follow up visit in 6 months. She did have a perforation this month with dilation of the ring. She has not had any pain and no dysphagia. She is progressing her diet slowly as outline by thoracic surgery. Patient verbally consents to this telephone visit and understands that this visit may be billed, similar to a clinic office visit. I provided care to the patient today via telephone call, 15 minutes telephone visit was spent in discussion with patient on above. She was located in [place] at the time of this telephone visit. Approximae time in review of records and documentation 5 minutes. Approximate total time devoted to this single encounter on the day of the encounter: 20 minutes Marla Petersen MD [facility] [place] [address] documented in this encounter Plan of Treatment Scheduled Orders Name Type Priority Associated Diagnoses Order S chedule CBC (with Diff) Lab Routine Autoimmune hepatitis Expe cted: 07/28/2022 (Approximate), Expires: 2022 Comprehensive metabolic Lab Routine Autoimmune hepati tis Expected: 07/28/2022 panel (non-fasting) (Approxi mate), Expires: 2022 Prothrombin Time Lab Routine Autoimmune hepatitis Exp ected: 07/28/2022 (Approximate), Expires: 2022 documented as of this encounter Visit Diagnoses Diagnosis Autoimmune hepatitis Dysphagia, unspecified type documented in this encounter Care Teams Rn Bsn Relationship Specialty Start Date End Date Rhonda Oliva APRN PCP - General General Internal Medicine 01/13/22 [facility] [address] [place] [address] documented as of this encounter
--- OUTSIDE RECORDS SUMMARY | 2022-04-30 01:22 | XMS_ITS | Encounter Summary ---
:1960 Author Organization [facility] [place] [address] Care Team Providers Name Role Phone None Primary Care Provider Unavailable Reason for Visit Reason Comments Medication Refill Encounter Details Date Type Department Care Team Description 12/07/2019 [place] [facility] [place]la Petersen, Autoimmune hepatitis [facility] [place] [phone] [facility] [phone] [place], [place] [address] Social History Tobacco Use Types [...] hepatitis documented in this encounter Care Teams Washer Assembler Relationship Specialty Start Date End Date None PCP - General 09/27/17 01/12/22 None documented as of this encounter
--- OUTSIDE RECORDS SUMMARY | 2022-04-30 01:22 | XMS_ITS | Encounter Summary ---
:1960 Author Organization [facility] [place] [address] Care Team Providers Name Role Phone Rhonda Olvia APRN Primary Care Provider [phone] Reason for Visit Auth/Cert Specialty Diagnoses / Procedures Referred By Contact Refer red To Contact Diagnoses Acute mediastinitis Cece Coello MD [facility] [place] [address] Referral ID Status Reason Start Date Expiration Date Visits Requ ested Visits Authorized [id number] 1 1 Encounter Details Date Type Department Care Team Description 01/13/2022 Hospital Encounter Gastroenterology at [facility] Marla Petersen, [facility] [place] [address] [facility] [phone] [place] [address] Social History Tobacco Use Types Packs/Day Years Used Date Former Smoker Smokeless Tobacco: Never Used Alcohol Use Standard Drinks/Week Comments Yes 4 (1 standard drink = 0.6 oz pure alcoho l) Sex Assigned at Date Recorded Not on file documented as of this encounter Last Filed Vital Signs Vital Sign Reading Time Taken Comments Blood Pressure 113/70 01/13/2022 3:10 PM EDT Pulse 63 01/13/2022 2:50 PM EDT Temperature 36.1 ??C (97 ??F) 01/13/2022 1:12 PM EDT Respiratory Rate 16 01/13/2022 3:10 PM EDT Oxygen Saturation 98% 01/13/2022 3:10 PM EDT Inhaled Oxygen Concentration - - Weight 83.9 kg (185 lb) 01/13/2022 1:12 PM EDT Height - - Body Mass Index 27.32 11/30/2018 11:30 AM EDT documented in this encounter Discharge Instructions Discharge InstructionsToKelin orona RN - 01/13/2022 4:07 PM EDT Upper GI Endoscopy: What to Expect at Home Your Recovery You will be able to go home after your doctor or nurse checks to make sure you are not having any problems. You may have to stay overnight if you had treatment during the test. You may have a sore throat for a day or two after the test. This care sheet gives you a general idea about what to expect after the test. How can you care for yourself at home? Activity Rest when you feel tired. You can do your normal activities when it feels okay to do so. Diet Follow your doctor's directions for eating. Unless your doctor has told you not to, drink plenty of fluids. This helps to replace the fluids that were lost during the prep. Do not drink alcohol. Medicines Your doctor will tell you if and when you can restart your medicines. He or she will also give you instructions about taking any new medicines. If you take blood thinners, such as warfarin (Coumadin), clopidogrel (Plavix), or aspirin, be sure to talk to your doctor. He or she will tell you if and when to start taking those medicines again. Make sure that you understand exactly what your doctor wants you to do. If polyps were removed or a biopsy was done during the test, your doctor may tell you not to take aspirin or other anti-inflammatory medicines for a few days. These include ibuprofen (Advil, Motrin) and naproxen (Aleve). If you have a sore throat the day after the procedure, use an tvwy-qie-rfnjkcw spray to numb your throat. Sucking on throat lozenges and gargling with warm salt water may also help relieve your symptoms. Other instructions For your safety, do not drive or operate machinery until the medicine wears off and you can think clearly. Your doctor may tell you not to drive or operate machinery until the day after your test. Do not sign legal documents or make major decisions until the medicine wears off and you can think clearly. The anesthesia can make it hard for you to fully understand what you are agreeing to. Additional Information for Sedation Patients For patients who received sedation: You may have received medications before and/or during your procedure which effects your judgement and reaction time. Do not drive, operate machinery, drink alcoholic beverages or make important decisions for 24 hours. Be careful on stairs as you may be unsteady on your feet. You may eat a regular diet as tolerated. Do not smoke if you are alone. IV site: Slight redness or tenderness is normal, you can use a warm compress if you would like. If tenderness and/or redness increase or if foul drainage occurs, please contact your Doctor. Please call [phone] before 8pm Mon-Fri with problems, questions or concerns. If you call after 8pm or on weekends, call the Hospital at [phone] and ask to speak to the Racing Driver sonar watchstander and the barrel roller operator will contact that person for you. When should you call for help? Call [phone] anytime you think you may need emergency care. For example, call if: You passed out (lost consciousness). You pass maroon or bloody stools. You have trouble breathing. Call your doctor now or seek immediate medical care if: You have pain that does not get better after you take pain medicine. You are sick to your stomach or cannot drink fluids. You have new or worse belly pain. You have blood in your stools. You have a fever. You cannot pass stools or gas. Watch closely for changes in your health, and be sure to contact your doctor if you have any problems. Where can you learn more? [facility] View your After Visit Summary and more online at [email or web address] If you would like to provide feedback about your hospital experience, please call the Office of Patient and Family Relations at . If you have received this After Visit Summary in error, please immediately return it in person to the department, or notify the [facility] Privacy Office by calling toll free at between the hours of 8AM and 5PM to arrange for our retrieval of the documents at no cost to you. Content Version: 12.2 ?? 2870-1542 [employer]. Care instructions adapted under license by [facility]. If you have questions about a medical condition or this instruction, always ask your healthcare professional. [employer] disclaims any warranty or liability for your use of this information. documented in this encounter Medications at Time [...] encounter H&P Notes Marla Petersen MD - 01/13/2022 2:12 PM EDT Patient Name: Anika Reyes Patient Age: 61 y.o. Birthdate: 1960 Admit date: 01/13/2022 Attending Physician: Marla Petersen MD Gastroenterology and Hepatology Pre-Procedure History and Physical Exam Procedure: EGD: Indication: Dysphagia There is no problem list on file [...] Name Priority Date/Time Associated Diagnosis Comme nts EGD,WITH DILATION 01/13/2022 2:13 PM Dysphagia, ESOPHAGUS WITH EDT unspecified type BALLOON,< 30 MM (WRVU 2.77) EGD, UPPER GI 01/13/2022 2:13 PM Dysphagia, ENDOSCOPY EDT unspecified type UPPER GI ENDOSCOPY Routine 01/13/2022 2:05 PM Res ults for this EDT procedure are i n the results section. documented in this encounter Results UPPER GI ENDOSCOPY (01/13/2022 2:05 PM EDT) Component Value Ref Test Analysis Performed At [facility] gist Range Method Time Signature UPPER GI [facility] ENDOSCOPY Endoscopy Procedure Date: 01/13/2022 2:05 PM ? Patient Name: Anika Reyes ? Date of : 1960 ? Age: 61 ? Order #: [id number] ? Instrument Name: [id number] ? Procedure: ? Upper GI endoscopy Indications: ? Dysphagia Providers: ? Marla Petersen MD, Scarlett yoon, ? RN, Panfilo Reza, Cecilia hidalgo Referring : ?Marla Petersen Medicines: ? Midazolam 4 mg IV, Fentanyl 200 ? micrograms IV Complications: ? No immediate complications. Procedure: ? Pre-Anesthesia Assessment: ? - Prior to the procedure, a History ? and Physical was performed , and ? patient medications and al lergies ? were reviewed. The patient 's ? tolerance of previous anes thesia ? was also reviewed. The ris ks and ? benefits of the procedure and the ? sedation options and risks were ? discussed with the patient . All ? questions were answered, a nd ? informed consent was obtai [place]. ? Prior Anticoagulants: The patient ? has taken no anticoagulant or ? antiplatelet agents. ASA G rade ? Assessment: II - A patient with ? mild systemic disease. Aft er ? reviewing the risks and be nefits, ? the patient was deemed in ? satisfactory condition to undergo ? the procedure. ? The procedure, indications , ? benefits, risks and altern atives ? were explained to the nader ent. ? Specifically discussed wer e ? potential complications in cluding, ? but not limited to, indra ledbetter, ? perforation, infection, mi ssing a ? cancer, and adverse medica tion ? reactions. The Endoscope w as ? introduced through the troy , and ? advanced to the second par t of ? duodenum The upper GI endo scopy was ? accomplished without diffi culty. ? The patient tolerated the procedure ? poorly due to the patient' s ? agitation. ? Findings: ? Esophagogastric landmarks were identified: the Z-line ? was found at 37 cm, the upper extent of the gastric ? folds was found at 37 cm and the site of hiatal ? narrowing was found at 39 cm from the incisors. ? A non-obstructing Schatzki ring was found at the ? gastroesophageal junction. A TTS dilator was passed ? through the scope. Dilation with a 15-16.5-18 mm ? balloon dilator was performed to 18 mm. The dilation ? site was examined and showed significant mucosal ? disruption with a rent. ? A 2 cm hiatal hernia was present. ? The entire examined stomach was normal. ? The examined duodenum was normal. ? Moderate Sedation: ? I was present during the intraservice time as ? documented by the sedation RN. Impression: ?- Esophagogastric landmarks ? identified. ? - Non-obstructing Schatzki ring. ? Dilated. ? - 2 cm hiatal hernia. ? - Normal stomach. ? - Normal examined duodenum . ? - No specimens collected. Recommendation: ?- Perform an esophagram today. ? - Clear liquid diet for 3 days, ? then advance as tolerated to resume ? previous diet. ? - Use Prilosec (omeprazole ) 40 mg ? PO BID for 8 weeks. ? - Use Zofran (ondansetron) 4 mg PO ? PRN. ? - Return to referring phys ician. ? - Recommend anesthesia for any ? future upper endosocpy. ? Procedure Code(s): ? --- Professional --- ? 04286, Esophagogastroduode noscopy, ? flexible, transoral; with ? transendoscopic balloon di lation of ? esophagus (less than 30 mm diameter) CPT copyright 2020 [employer]. All rights reserved. The codes documented in this report are preliminary and upon program proposals coordinator review may be revised to meet current compliance requirements. Attending Participation: ? I personally performed the entire procedure. ? Marla Petersen MD Marla Petersen MD 01/13/2022 3:09:56 PM This report has been signed electronically. Number of Addenda: 0 Note Initiated On: 01/13/2022 2:05 PM Specimen (Source) Anatomical Collection Method Collection Time Re ceived Time Location / / Volume Laterality 01/13/2022 2:05 PM EDT Marla Petersen MD GENERAL SURGICAL ORDERABLES Performing Organization Address City/State/ZIP Code Phon e Number PROVATION documented in this encounter Visit Diagnoses Not on filedocumented in this encounter Administered Medications Inactive Administered Medications - up to 3 most recent administrations Medication Order MAR Action Action Date Dose Rate Site lactated ringers infusion New Bag 01/13/2022 1:32 PM EDT 100 mL/hr 100 mL/hr 100 mL/hr, Intravenous, CONTINUOUS, Starting on Tue01/13/22 at 1330, Until Tue01/13/22 at 1934, Endoscopy (Day of Procedure) documented in this encounter Active and Recently Administered Medications Times are shown in EDT. Continuous Medication Order 01/11/2022 01/12/2022 01/13/2022 lactated ringers infusion 1332 ( New Bag - Provider: Pilar Handy RN) 100 mL/hr, Intravenous, CONTINUOUS, Star ting on Tue01/13/22 at 1330, Until Tue01/13/22 at 1934, Endoscopy (Day of Procedure) PRN Medication Order 01/11/2022 01/12/2022 01/13/2022 fentaNYL (pf) (50 mcg/mL) multi-dose injection (CANCELED) 1416 (Given - Provider: Scarlett Smith RN)1419 (Given - Provider: Scarlett Smith RN)1422 (Given - Provider: Scarlett Smith RN)1428 (Given - Provider: Scarlett Smith RN) ONCE PRN, Starting on Tue01/13/22 at 141 6, Until Tue01/13/22 at 1934, Intra- Operative (Intra-Procedure), Routine midazolam (pf) (Versed) (1 mg/mL) multi-dose injection (CANCELED ) 1416 (Given - Provider: Scarlett Smith RN)1419 (Given - Provider: Scarlett Smith RN)1422 (Given - Provider: Scarlett Smith RN)1428 (Given - Provider: Scarlett Smith RN) ONCE PRN, Starting on Tue01/13/22 at 141 6, Until Tue01/13/22 at 1934, Intra- Operative (Intra-Procedure), Routine documented in this encounter Care Teams Brain Surgeon Relationship Specialty Start Date End Date Rhonda Oliva APRN PCP - General General Internal Medicine 01/13/[address] [place] [address] documented as of this encounter
--- OUTSIDE RECORDS SUMMARY | 2022-04-30 01:22 | XMS_ITS | Encounter Summary ---
:1960 Author Organization [facility] [place] [address] Care Team Providers Name Role Phone None Primary Care Provider Unavailable Encounter Details Date Type Department Care Team Description 01/22/2021 TH Visit Gastroenterology at [facility] Marla Petersen, Autoimmune (TeleHealth) [facility] [place] [address] [facility] [phone] [place] [address] Social History Tobacco Use Types Packs/Day Years Used Date Former Smoker Smokeless Tobacco: Never Used Alcohol Use Standard Drinks/Week Comments Yes 4 (1 standard drink = 0.6 oz pure alcoho l) Sex Assigned at Date Recorded Not on file documented as of this encounter Progress Notes Marla Petersen MD - 01/22/2021 8:30 AM EDT Images from the original note were not included. GASTROENTEROLOGY TELEMEDICINE PROGRAM - ESTABLISHED PATIENT VISIT Chief Complaint: Anika Reyes is a 60 y.o. patient of for follow-up of AIH and dysphagia. ?? Detailed history: Autoimmune Hepatitis - Diagnosed in Aug 2014, [...] of Schatzki's ring which was dilated in 2011.?? - EGD 03/2018 was negative, normal esophageal biopsies?? Interval history: She reports doing well overall. She continues to note dysphagia about twice a week. She notes this has been stable over the last few years. She notes this more with meats such as chicken or steak, but also with hot foods. Review of systems: 14-point review of systems [...] is allergic to epinephrine. Past Medical History: has no past medical history on file. Past Surgical History: has a past surgical history that includes Upper Gi Endoscopy, Biopsy (96721) (N/A, 03/29/2018). Family History: family history is not on file. denies family history of colon cancer, IBD, or celiac disease in mother father or other family members Social History: reports that she has quit smoking. She has never used smokeless tobacco. She reportscurrent alcohol use of about 4.0 standard drinks of alcohol per week. She reports that she does not use drugs. Physical exam: No Physical Examination performed during this telemedicine visit Laboratory studies, imaging, and procedures (my review of prior records): Assessment/Plan: Ms. Reyes is a 60 y.o. patient with autoimmune hepatitis stable on azathioprine 50 mg daily. We reviewed her blood work which shows stable liver enzymes. Repeat labs in 6 months. We reviewed the mechanism of action of azathioprine and the effects on the immune system. We reviewed that the effects of Covid and the Covid vaccine and autoimmune hepatitis patients is not fully understood, but she is on a low level of immunosuppression which is beneficial. As for her dysphagia this has been stable. Last upper endoscopy was in 2018 with a 4 cm hiatal hernia, but no Schatzki's ring was appreciated at that time. Offered repeat EGD which she declined at thistime, but she will contact me if her symptoms worsen to schedule. We discussed a telehealth visit in 6 months for follow-up. Discussed follow-up in person in January 2022 to allow for a FibroScan. Recommendations: -Labs every 6 months -Telehealth visit in 6 months -In person visit in 12 months to allow for FibroScan I spent 28 minutes face to face with the patient. 28 minutes were spent on counseling and discussionas of the above during this telemedicine visit. The patient was located in [place] at the time of their visit. Approximae time in review of records and documentation 5 minutes. Approximate total time devoted to this single encounter on the day of the encounter: 33 minutes Marla Petersen MD [facility] [place] [address] documented in this encounter Plan of Treatment Scheduled Orders Name Type Priority Associated Diagnoses Order S chedule Comprehensive metabolic Lab Routine Autoimmune hepati tis Every 6 months for 2 panel (non-fasting) Occurren keagan starting 01/22/2021 unti l 07/02/2022 documented as of this encounter Visit Diagnoses Diagnosis Autoimmune hepatitis documented in this encounter Care Teams K 9 Police Officer Relationship Specialty Start Date End Date None PCP - General 09/27/17 01/12/22 None documented as of this encounter
--- OUTSIDE RECORDS SUMMARY | 2022-04-30 01:22 | XMS_ITS | Encounter Summary ---
:1960 Author Organization [facility] [place] [address] Care Team Providers Name Role Phone None Primary Care Provider Unavailable Reason for Visit Reason Onset Date Comments Reminder Appointment 12/27/2019 Encounter Details Date Type Department Care Team Description 12/27/2019 Telephone [place]ology [place] [facility] Beatrice Camara Reminder Appointment [facility] [place] [address] Social History Tobacco Use Types Packs/Day Years Used Date Former Smoker Smokeless Tobacco: Never Used Alcohol Use Standard Drinks/Week Comments Yes 4 (1 standard drink = 0.6 oz pure alcoho l) Sex Assigned at Date Recorded Not on file documented as of this encounter Miscellaneous Notes Telephone Encounter - Beatrice Camara CCMA - 12/27/2019 8:44 AM EDT Called patient to review medications and allergies for their upcoming gastroenterology Type of Appointment: Telehealth appointment. Reach Patient during [place] Check: Yes Notes for the provider: Notes for the nurse: documented in this encounter Plan of Treatment Not on filedocumented as of this encounter Visit Diagnoses Not on filedocumented in this encounter Care Teams Sneller Hand Relationship Specialty Start Date End Date None PCP - General 09/27/17 01/12/22 None documented as of this encounter
--- OUTSIDE RECORDS SUMMARY | 2022-04-30 01:22 | XMS_ITS | Encounter Summary ---
:1960 Author Organization [facility] [place] [address] Care Team Providers Name Role Phone None Primary Care Provider Unavailable Encounter Details Date Type Department Care Team Description 03/29/2018 Surgery Gastroenterology at [facility] Marla Petersen, EGD WITH BIOPSY ([facility] Lilia abarca MD [address] [place] [address] [facility] [phone] [place], [place] [address] Social History Tobacco Use Types Packs/Day Years Used Date Former Smoker Smokeless Tobacco: Never Used Alcohol Use Standard Drinks/Week Comments Yes 4 (1 standard drink = 0.6 oz pure alcoho l) Sex Assigned at Date Recorded Not on file documented as of this encounter Last Filed Vital Signs Vital Sign Reading Time Taken Comments Blood Pressure 118/85 03/29/2018 10:00 AM EDT Pulse 61 03/29/2018 9:14 AM EDT Temperature 36.3 ??C (97.3 ??F) 03/29/2018 9:14 AM EDT Respiratory Rate 16 03/29/2018 9:14 AM EDT Oxygen Saturation 99% 03/29/2018 9:14 AM EDT Inhaled Oxygen Concentration - - [...] better as expected. Tuesday-Tuesday Same Day Endo [phone] [id number]-8p Otherwise contact [phone] and ask to speak to the milk collector concrete bucket unloader Follow-up care is a [place] part of [...] 03/29/2018 AM EDT 10:19 AM EDT Narrative [facility] - 03/29/2018 10:19 AM EDT Specimen requisition ordered. ??Separate Pathology report to follow Marla Petersen MD PATHOLOGY/CYTOLOGY ORDERABLE S Performing Organization Address City/State/ZIP [place] [address] Surgical Pathology Report (03/29/2018 10:17 AM EDT) Component Value Ref Test Analysis Performed At [facility] Range Method Time Signature Surgical [id number] ? Location: 4T; EA09; A [facility] Report The signing pathologist has (i) examined the relevant preparation(s) for the [facility] specimen(s) and (ii) rendered or confirmed the diagnosis(es) . HOSPITAL LABORATORY . ?Surgic al Pathology DIAGNOSIS Distal 2/3 esophagus, ?? biopsy: Esophageal squamous mucosa within normal limits. Electronically signed by: ??Iveth ETIENNE PhD, Jay Leahy Verified: ??03/30/2018 ?Pathologist Performed at: ??-[facility] Dept. of Pathology, [place], [place] CLINICAL INFORMATION Specimen Submitted: A - [...] Organization Address City/State/ZIP [place] [address] UPPER GI ENDOSCOPY (03/29/2018 9:43 AM EDT) Component Value Ref Test Analysis Performed At [facility] Range Method Time Signature UPPER GI [facility] ENDOSCOPY Endoscopy Procedure Date: 03/29/2018 9:43 AM ? Patient Name: Anika Reyes ? N: [id number] ? Date of : 1960 ? Age: 57 ? Order #: [id number] ? Instrument Name: [id number] ? Procedure: ? Upper GI endoscopy Indications: ? Dysphagia, Esophageal reflux Providers: ? Marla Petersen, Christian Savage, RN , ? Moe Lo Referring MD: ?None, MD Medicines: ? Midazolam [...] reactions. The ? Endoscope was introduced thro ugh the ? mouth, and advanced to the [...] Procedure Code(s): ?? --- Professional --- ? 96342, Esophagogastroduodenos copy, ? flexible, transoral; with bio psy, ? single or multiple CPT copyright 2017 [employer]. All rights reserved. The codes documented in this report are preliminary and upon survey manager review may be revised to meet current [...] MAR Action Action Date Dose Rate Site fentaNYL 50 mcg/mL multi-dose Given 03/29/2018 10:14 AM EDT 50 m cg injection ONCE PRN, Starting on Tue03/29/18 at 1001, Until Tue03/29/18 at 1335, Intra-Operative (Intra-Procedure), Routine Given 03/29/2018 10:10 AM EDT 50 mcg Given 03/29/2018 10:05 AM EDT 50 mcg lactated Ringers infusion New Bag 03/29/2018 9:21 AM EDT 100 mL/hr 100 mL/hr 100 mL/hr, Intravenous, CONTINUOUS, Starting on Tue03/29/18 at 0930, Until Tue03/29/18 at 1131, Endoscopy (Day of Procedure) midazolam (PF) (VERSED) 1 mg/mL multi-dose Given 03/29/2018 10:1 4 AM EDT 1 mg injection ONCE PRN, Starting on Tue03/29/18 at 1001, Until Tue03/29/18 at 1335, Intra-Operative (Intra-Procedure), Routine Given 03/29/2018 10:10 AM EDT 1 mg Given 03/29/2018 10:05 AM EDT 1 mg documented in this encounter Active and Recently Administered Medications Times are shown in EDT. Continuous Medication Order 03/27/2018 03/28/2018 03/29/2018 lactated Ringers infusion (CANCELED) 0921 (New Bag - Provider: Aisah Garay RN)1124 (Stopped - Provider: Kush Lackey [...] (CANCELED) 1001 (Given - Provider: Christian Savage, MONY)1005 (Given - Provider: Christian Savage, RN)1010 (Given - Provider: Christian Savage, RN)1014 (Given - Provider: Christian Savage, RN) ONCE PRN, Starting Tue03/29/18 at 1001, Until Tue03/29/18 at 1335, Intra- Operative (Intra-Procedure), Routine documented in this encounter Care Teams Range Management Specialist Relationship Specialty Start Date End Date None PCP - General 09/27/17 01/12/22 None documented as of this encounter
--- OUTSIDE RECORDS SUMMARY | 2022-04-30 01:22 | XMS_ITS | Encounter Summary ---
:1960 Author Organization [facility] [place] [address] Care Team Providers Name Role Phone None Primary Care Provider Unavailable Reason for Visit Reason Comments Medication Refill Encounter Details Date Type Department Care Team Description 05/30/2020 Refill Gastroenterology at [facility] Marla Petersen, Autoimmune hepatitis [facility] [place] [address] [facility] [phone] [place], [place] [address] Social History Tobacco Use Types [...] hepatitis documented in this encounter Care Teams Woodworker Helper Relationship Specialty Start Date End Date None PCP - General 09/27/17 01/12/22 None documented as of this encounter
--- OUTSIDE RECORDS SUMMARY | 2022-04-30 01:22 | XMS_ITS | Encounter Summary ---
:1960 Author Organization [facility] Address [address] [address] Care Team Providers Name Role Phone None Primary Care Provider Unavailable Encounter Details Date Type Department Care Team Description 05/22/2019 External Results [place]ology at [facility] Marla Petersen, [facility] [place] [address] [facility] [phone] [place] [address] Social History Tobacco Use Types [...] Comme nts EXTERNAL LAB CBC CMP Routine 05/21/2019 Results for this THYROID RESULTS PANEL proced ure are in the results section . documented in this encounter Results CBC / CMP / Thyroid External Results (05/21/2019) P athologist Signature WBC 4.6 RBC 4.33 Hemoglobin 13.1 Hematocrit 40.1 MCV 92.6 Platelets 195 Sodium 138 Potassium 4.0 Chloride 101 CO2 30 BUN 14 Creatinine 0.69 Estimated GFR >60 Glucose Lvl 88 Calcium 9.5 Total Protein 7.3 Albumin 4.4 Total Bilirubin 0.9 Bili, Direct 0.1 Alk Phos 61 AST 35 ALT 32 PT 10.9 INR 1.00 Historical Provider POINT OF CARE TEST ORDERABLE S documented in this encounter Visit Diagnoses Not on filedocumented in this encounter Care Teams Handtools Repairer Relationship Specialty Start Date End Date None PCP - General 09/27/17 01/12/22 None documented as of this encounter
--- OUTSIDE RECORDS SUMMARY | 2022-04-30 01:22 | XMS_ITS | Encounter Summary ---
:1960 Author Organization [facility] [place] [address] Care Team Providers Name Role Phone None Primary Care Provider Unavailable Encounter Details Date Type Department Care Team Description 07/31/2021 Orders Only Gastroenterology at [facility] Marla Petersen, Autoimmune hepatitis [facility] [place] [address] [facility] [phone] [place] [address] Social History Tobacco Use Types Packs/Day Years [...] Diff) Lab Routine Autoimmune hepatitis Expe cted: 01/28/2022 (Approximate), Expires: 2022 Comprehensive metabolic Lab Routine Autoimmune hepati tis Expected: 01/28/2022 panel (non-fasting) (Approxi mate), Expires: 2022 Prothrombin Time Lab Routine Autoimmune hepatitis Exp ected: 01/28/2022 (Approximate), Expires: 2022 documented as of this encounter Visit Diagnoses Diagnosis Autoimmune hepatitis documented in this encounter Care Teams Health Center Manager Relationship Specialty Start Date End Date None PCP - General 09/27/17 01/12/22 None documented as of this encounter
--- OUTSIDE RECORDS SUMMARY | 2022-04-30 01:22 | XMS_ITS | Encounter Summary ---
:1960 Author Organization [facility] [place] [address] Care Team Providers Name Role Phone Rhonda Oliva APRN Primary Care Provider [phone] Reason for Visit Reason Comments Medication Refill Encounter Details Date Type Department Care Team Description 05/13/2019 [place]ill [place] [facility] [place]oni [place], Autoimmune hepatitis [facility] [place] [address] [facility] [phone] GASTRO[place]OLOGY [place], [place] [address] Social History Tobacco Use Types [...] hepatitis documented in this encounter Care Teams Precast Concrete Ironworker Relationship Specialty Start Date End Date Rhonda Oliva APRN PCP - General General Internal Medicine 01/13/[address] [place] [address] documented as of this encounter
--- OUTSIDE RECORDS SUMMARY | 2022-04-30 01:22 | XMS_ITS | Encounter Summary ---
:1960 Author Organization [facility] [place] [address] Care Team Providers Name Role Phone None Primary Care Provider Unavailable Encounter Details Date Type Department Care Team Description 12/01/2021 Telephone [place] [facility] [place] [address] Social History Tobacco Use Types Packs/Day Years Used Date Former Smoker Smokeless Tobacco: Never Used Alcohol Use Standard Drinks/Week Comments Yes 4 (1 standard drink = 0.6 oz pure alcoho l) Sex Assigned at Date Recorded Not on file documented as of this encounter Miscellaneous Notes Telephone Encounter - Lyric Espinoza - 12/01/2021 3:30 PM EDT Anika Reyes [id number] Diagnosis/Indication: dysphagia, prior dilation 1. Have you ever had a/an Upper Endoscopy before? Yes: Date 03/29/2018 If yes, did you have any problems with the procedure? No What type of sedation was used: IV Conscious Sedation 2. Do you take any blood thinners or have you been diagnosed with a bleeding disorder that increasesyour risk of bleeding with procedures? No 3. Do you have a Pacemaker or Defibrillator device? No 4. Are you a diabetic? No 5. Do you have any Allergies to Eggs, Latex or Medications? Yes: E-Dh 6. Do you take any Oral Iron Supplements (Including multi-vitamins)? No 7. Do you have a history of three or more abdominal surgeries? No 8. Have you had a problem with sedation or anesthesia? No 9. Do you use a c-pap machine or oxygen tank? C-Pap 10. Do you take prescription narcotic pain medications, including suboxone or methodone? No 11. Do you have a preference regarding the gender of your provider? Yes: Female Nicola 12. Is there any other information you would like to us to note for the provider and nursing team who will perform your case? No 13. Say to patient: You must have a responsible constitution party who will drive you to your procedure, stay on campus for the entire duration of your procedure, and drive you home from your procedure? *Please Verify the height and weight, and adjust if height and/or weight have changed* Estimated body mass index is 26.82 kg/m?? as calculated from the following: Height as of 11/30/18: 175.3 cm (5' 9). Weight as of 11/30/18: 82.4 kg (181 lb 9.6 oz). *Delete if not needed* Height: 5'9 Weight: 175 BMI: 25.8 Age:60 y.o. documented in this encounter Plan of Treatment Not on filedocumented as of this encounter Visit Diagnoses Not on filedocumented in this encounter Care Teams Mineral Technologist Relationship Specialty Start Date End Date None PCP - General 09/27/17 01/12/22 None documented as of this encounter
--- OUTSIDE RECORDS SUMMARY | 2022-04-30 01:22 | XMS_ITS | Encounter Summary ---
:1960 Author Organization [facility] [place] [address] Care Team Providers Name Role Phone Rhonda Oliva APRN Primary Care Provider [phone] Reason for Visit Auth/Cert Specialty Diagnoses / Procedures Referred By Contact Refer red To Contact Diagnoses Acute mediastinitis Cece Coello MD [facility] Procedures [place] [address] Referral ID Status Reason Start Date Expiration Date Visits Requ ested Visits Authorized [id number] 1 1 Encounter Details Date Type Department Care Team Description 01/13/2022 Surgery Gastroenterology at [facility] [place] [place] Marla Petersen, EGD, UPPER GI [facility] [place] [address] [facility] [phone] [place], [place] [address] Social History Tobacco Use Types Packs/Day Years Used Date Former Smoker Smokeless Tobacco: Never Used Alcohol Use Standard Drinks/Week Comments Yes 4 (1 standard drink = 0.6 oz pure alcoho l) Sex Assigned at Date Recorded Not on file documented as of this encounter Last Filed Vital Signs Vital Sign Reading Time Taken Comments Blood Pressure 140/89 01/13/2022 2:15 PM EDT Pulse 58 01/13/2022 2:15 PM EDT Temperature 36.1 ??C (97 ??F) 01/13/2022 1:12 PM EDT Respiratory Rate 13 01/13/2022 2:15 PM EDT Oxygen Saturation 100% 01/13/2022 2:15 PM EDT Inhaled Oxygen Concentration - - [...] the day after the procedure, use an jivg-put-bawlhpy spray to numb your throat. Sucking on [...] occurs, please contact your Doctor. Please call [phone] before 8pm Mon-Fri with problems, questions or concerns. If you call after 8pm or on weekends, call the Hospital at [phone] and ask to speak to the Registered Dental Assistant claims configuration analyst and the vacuum metalizer operator will contact that person for you. When should you call for help? Call [phone] anytime you think you may need emergency [...] any problems. Where can you learn more? [facility]- View your After Visit Summary and more online at [email or web address] If you would like to provide feedback about your hospital experience, please call the Office of Patient and Family Relations at . If you have received this After Visit Summary in error, please immediately return it in person to the department, or notify the [facility] Privacy Office by calling toll free at between the hours of 8AM and 5PM to arrange for our retrieval of the documents at no cost to you. Content Version: 12.2 ?? [id number] [employer]. Care instructions adapted under license by [facility]. If you have questions about a medical condition or this instruction, always ask your healthcare professional. [employer] disclaims any warranty or liability for your [...] Component Value Ref Test Analysis Performed At [facility] Range Method Time Signature UPPER GI [facility] [employer] ENDOSCOPY Endoscopy Procedure Date: 01/13/2022 2:05 PM ? Patient Name: Anika Reyes ? Date of : 1960 ? Age: 61 ? Order #: [id number] ? Instrument Name: [id number] ? Procedure: ? Upper GI endoscopy Indications: [...] Procedure Code(s): ? --- Professional --- ? 36901, Esophagogastroduode noscopy, ? flexible, transoral; with ? transendoscopic balloon di lation of ? esophagus (less than 30 mm diameter) CPT copyright 2020 [employer]. All rights reserved. The codes documented in this report are preliminary and upon data coder operator review may be revised to meet [...] [employer] documented in this encounter Visit Diagnoses Diagnosis Dysphagia, unspecified type documented in this encounter Administered Medications Inactive Administered Medications - up to 3 most recent administrations Medication Order MAR Action Action Date Dose Rate Site fentaNYL (pf) (50 mcg/mL) Given 01/13/2022 2:28 PM EDT 50 mcg Right Arm multi-dose injection ONCE PRN, Starting on Tue01/13/22 at 1416, Until Tue01/13/22 at 1934, Intra-Operative (Intra-Procedure), Routine Given 01/13/2022 2:22 PM EDT 50 mcg Right Arm Given 01/13/2022 2:19 PM EDT 50 mcg Right Arm lactated ringers infusion New Bag 01/13/2022 1:32 PM EDT 100 mL/hr 100 mL/hr 100 mL/hr, Intravenous, CONTINUOUS, Starting on Tue01/13/22 at 1330, Until Tue01/13/22 at 1934, Endoscopy (Day of Procedure) midazolam (pf) (Versed) (1 mg/mL) multi-dose Given 01/13/2022 2: 28 PM EDT 1 mg injection ONCE PRN, Starting on Tue01/13/22 at 1416, Until Tue01/13/22 at 1934, Intra-Operative (Intra-Procedure), Routine Given 01/13/2022 2:22 PM EDT 1 mg Given 01/13/2022 2:19 PM EDT 1 mg documented in this encounter Active and Recently Administered Medications Times are shown in EDT. Continuous Medication Order 01/11/2022 01/12/2022 01/13/2022 lactated ringers infusion 1332 ( New Bag - Provider: Pilar Handy, RN) 100 mL/hr, Intravenous, CONTINUOUS, Star ting [...] Scarlett Smith RN)1419 (Given - Provider: Scarlett Smith, MONY)1422 (Given - Provider: Scarlett Smith RN)1428 (Given - Provider: Scarlett Smith RN) ONCE PRN, Starting on Tue01/13/22 at 141 6, Until Tue01/13/22 at 1934, Intra- Operative (Intra-Procedure), Routine documented in this encounter Care Teams Window Caser Relationship Specialty Start Date End Date Rhonda Oliva APRN PCP - General General Internal Medicine 01/13/[address] [place] [address] documented as of this encounter
--- OUTSIDE RECORDS SUMMARY | 2022-04-30 01:23 | XMS_ITS | Encounter Summary ---
:1960 Author Organization [facility] [place] [address] Care Team Providers Name Role Phone None Primary Care Provider Unavailable Reason for Visit Reason Comments GI Problem Consultation (Routine) - Specialty Diagnoses / Procedures Referred By Contact Refer red To Contact Gastroenterology Diagnoses AIH, bridging fibrosis, ?liver transplant. De Leon's esophagus. Luis Rich MD Toor, Arifa, MD Procedures Consult; evaluate, treat [address] [facility] [address] [place] [address] Phone: Fax: Referral ID Status Reason Start Date Expiration Date Visits V isits Requested Authorized [id number] Consult, 08/09/2017 08/09/2018 1 1 Test & Treat Encounter Details Date Type Department Care Team Description 09/27/2017 Office Visit Gastroenterology at [facility] Luis Alfredo Petersen, Autoimmune hepatitis [facility] [place] [address] [facility] [phone] [place] [id number] Social History Tobacco Use Types Packs/Day Years Used Date Former Smoker Smokeless Tobacco: Never Used Sex Assigned at Date Recorded Not on file documented as of this encounter Last Filed Vital Signs Vital Sign Reading Time Taken Comments Blood Pressure 125/73 09/27/2017 9:31 AM EDT Pulse 65 09/27/2017 9:31 AM EDT Temperature - - Respiratory Rate - - Oxygen Saturation - - Inhaled Oxygen Concentration - - Weight 82.4 kg (181 lb 9.6 oz) 09/27/2017 9:31 AM EDT Height 172.7 cm (5' 8) 09/27/2017 9:31 AM EDT Body Mass Index 27.61 09/27/2017 9:31 AM EDT documented in this encounter Progress Notes Luis Alfredo Petersen MD - 09/27/2017 9:30 AM EDT Images from the original note were not included. HEPATOLOGY CONSULTATION Anika Reyes 1960 RV TECHNICIAN: Luis Alfredo Petersen MD ([id number]) PCP: None Requesting Provider: REASON FOR CONSULTATION Autoimmune hepatitis HISTORY OF PRESENT ILLNESS Anika Reyes is a 56 y.o. year old she was diagnosed in Aug 2014, she had a liver biopsy at that time. Initially on Prednisone which was rapidly tapered requiring restarting prednisone with a slow taper and AZA (initially 50 mg, but was empirically increased to 75 mg after stopping steroids). Repeat biopsy in 02/2016 showed treated AIH and focal bridging fibrosis. [place] recently moved to [place] EtOH oneglass of wine 2x per week. She has had intermittent dysphagia with episodes ~1x per month. She has history of Schatzki's ring which was dilated in 2011. She does think her symptoms were improved after this. She has been on on PPI, but has been weaning herself off for the past several months. Currently she is taking PPI 1-2x week without GERD symptoms. She does note previously having GERD symptoms but notes she has improved herdiet. No abnormal weight loss. 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 ROS: Constitutional: no weight loss HEENT: no visual changes, no URI symptoms Cardio: no chest pain Resp: no cough, no SOB, no DAY or orthopnea Hem/Lymph: no new lumps or bumps on body GI: see HPI : no dysuria Integumentary: no new rashes Musculoskeletal: no new joint pains Neuro: no new numbness, weakness in extremities PAST MEDICAL/SURGICAL HISTORY 1. AIH, with focal bridging fibrosis 2. MONICA, on CPAP MEDICATIONS Outpatient Prescriptions Marked as Taking for the 09/27/17 encounter (Office Visit) with Luis Alfredo Petersen MD Medication Sig Dispense Refill ??? azaTHIOprine (IMURAN) 50 mg Tablet Take 75 mg by mouth daily. ??? eszopiclone (LUNESTA) 2 mg Tablet Take 2 mg by mouth nightly as needed. ??? omeprazole (PRILOSEC OTC) 20 mg Tablet, Delayed Release (E.C.) Take 20 mg by mouth as needed. ALLERGIES Allergies Allergen Reactions ??? Epinephrine Faints SOCIAL HISTORY Social History Social History ??? Marital status: Spouse name: N/A ??? Number of children: N/A ??? Years of education: N/A Occupational History ??? Not on file. Social History Main Topics ??? Smoking status: Former Smoker ??? Smokeless tobacco: Never Used ??? Alcohol use Not on file ??? Drug use: Not on file ??? Sexual activity: Not on file Other Topics Concern ??? Not on file Social History Narrative ??? No narrative on file FAMILY HISTORY There is no family history of inflammatory bowel disease, celiac disease, or colorectal cancer. There is no history of liver disease. Vitals: 09/27/17 0931 BP: 125/73 Pulse: 65 Weight: 82.4 kg (181 lb 9.6 oz) Height: 172.7 cm (5' 8) PHYSICAL EXAM General: Appears stated age, NAD Eyes: Normal sclera, normal conjunctiva ENT: Moist mucus membranes, normal posterior pharynx Lymph: No lymphadenopathy of the head or neck Heart: Heart sounds I and II were audible, no added sounds, no murmurs Lungs: Clear to ausculation bilaterally Abdomen: Soft, non-tender, no organomegaly, normal active bowel sounds Extremities: No peripheral edema Skin: No jaundice, no spider nevi, no palmar erythema Neuro: No asterixis, grossly intact Mental: Appropriate affect, oriented in person, place, and time RESULTS 04/2015 Fibroscan Results: Mean kPa: 6.4 kPa Mean IQR: 23% (goal is <30 %) Success rate: 92% (goal is >60%) Predicted fibrosis stage: F0-1 ASSESSMENT/PLAN #1 Autoimmune hepatitis She is currently stable on Imuran 75 mg daily monotherapy. Last laboratory draw was in March 2017. Will update labs today. Discussed reducing dose to 50 mg daily which she is interested in. Her prescription was recently renewed so we will wait until the summer to repeat labs and rediscuss when shepresents for endoscopy. Discussed that after the dose change would require monthly monitoring. #2 Dysphasia Discussed the differential would include recurrence of her Schatzki's ring, GERD, or eosinophilic esophagitis. Recommended EGD for follow-up with potential dilation. I also discussed placement of a Marquis pH capsule as she is come off PPI but has evidence of previous acid reflux. She would like to defer this to the summer without any red flag symptoms I believe that this is reasonable. She has a history of MONICA and notes that her previous battery tester field recommended propofol for further procedures. Plan: - CBC, CMP, and INR today - EGD with esophageal biopsies, potential dilation, and Marquis pH with propofol this summer Luis Alfredo Petersen MD Hepatology and Gastroenterology [facility] CHAZ Silvestre V: [phone] Copy: None None documented in this encounter Procedure Notes Luis Alfredo Petersen MD - 09/27/2017 9:30 AM EDTAssociated Order(s): FIBROSCAN Procedure(s): FIBROSCAN Pre-Procedure Diagnose(s): Autoimmune hepatitis [facility] Liver Fibrosis Assessment Report Indication: AIH Performed by: Luis Alfredo Petersen MD Procedure: Vibration Controlled Transient Elastography (VCTE) or Fibroscan [place] Protocol: Patient's identity, procedure and site were verified, confirmatory pause performed. Discussed procedure including risks and potential complications. Questions answered. Patient verbalizes understanding and wishes to proceed with Fibroscan assessment. Patient was placed in the supine position with right arm in maximum abduction to allow optimal exposure of right lateral abdomen. Patient was briefly assessed. Testing was performed in the mid-axillarylocation. 50Hz Shear Wave pulses were applied and the resulting Shear Wave and Propagation Speed wasdetected with a 3.5MHz ultrasonic signal, using the Fibroscan probe. Skin to liver capsule distance and liver parenchyma were accessed during the entire examination with the Fibroscan probe. Patient was instructed to breathe normally and abstain from sudden movements during the procedure. At least tenSheer Waves were produced; individual measurements of each Shear Wave were calculated. Patient tolerated the procedure well with no complications. XL-probe was used. Fibroscan Results: Median kPa: 6.4 Mean IQR: 23% (goal is <30 %) Number of valid measurements: 13 (at least 10 required) Number of invalid measurements: 1 Predicted fibrosis stage: F0-1 CAP (dB/m): 160 Estimated steatosis grade: 0-1/3 % hepatocytes affected: <33% Interpretation: Based on this Fibroscan result, history, clinical examination and review of laboratory and radiological data, this patient likely has stage F0-1 liver fibrosis. documented in this encounter Plan of Treatment Scheduled Orders Name Type Priority Associated Diagnoses Order S chedule CBC (with Diff) Lab Routine Autoimmune hepatitis Expe cted: 09/27/2017 (Approximate), Expires: 2017 Comprehensive metabolic Lab Routine Autoimmune hepati tis Expected: 09/27/2017 panel (non-fasting) (Approxi mate), Expires: 2017 Prothrombin Time Lab Routine Autoimmune hepatitis Exp ected: 09/27/2017 (Approximate), Expires: 2017 documented as of this encounter Procedures Procedure Name Priority Date/Time Associated Comments Diagnosis [id number] Routine 09/27/2017 11:01 Autoimmune Results for this AM EDT hepatitis procedure are i n the results section. HEMOGRAM Routine 09/27/2017 11:00 Autoimmune Results for this AM EDT hepatitis procedure are i n the results section. DIFFERENTIAL, Routine 09/27/2017 11:00 Autoimmune Results fo r this AUTOMATED AM EDT hepatitis procedure are i n the results section. PROTHROMBIN TIME Routine 09/27/2017 11:00 Autoimmune Results for this AM EDT hepatitis procedure are i n the results section. CBC (WITH DIFF) Routine 09/27/2017 11:00 Autoimmune AM EDT hepatitis COMPREHENSIVE Routine 09/27/2017 11:00 Autoimmune Results fo r this METABOLIC PANEL AM EDT hepatitis procedure ar e in (NON-FASTING) the results section. documented in this encounter Results [id number] (09/27/2017 11:01 AM EDT) Narrative Luis Alfredo Petersen MD - 09/27/2017 11:01 A M EDT Luis Alfredo Petersen MD ? 09/27/2017 11:01 AM [facility] Liver Fibrosis Asses sment Report Indication: ?? AIH Performed by: ??Luis Alfredo Petersen MD Procedure: Vibration Controlled Transien t Elastography (VCTE) or Fibroscan [place] Protocol: Patient's identity, procedure and site were verified, confirmatory pause performed. Discussed procedure including risks and potential complicati ons. Questions answered. Patient verbalizes understanding and wis hes to proceed with Fibroscan assessment. Patient was placed in the supine positio n with right arm in maximum abduction to allow optimal expos ure of right lateral abdomen. Patient was briefly assessed. T esting was performed in the mid-axillary location. 50Hz Shear Wa ve pulses were applied and the resulting Shear Wave and Propaga tion Speed was detected with a 3.5MHz ultrasonic signal, using t he Fibroscan probe. Skin to liver capsule distance and liver pare nchyma were accessed during the entire examination with the F ibroscan probe. Patient was instructed to breathe normally and a bstain from sudden movements during the procedure. At least ten Sheer Waves were produced; individual measurements of eac h Shear Wave were calculated. Patient tolerated the proced ure well with no complications. XL-probe was used. Fibroscan Results: Median kPa: 6.4 Mean IQR: 23% (goal is <30 %) Number of valid measurements: 13 (at alea st 10 required) Number of invalid measurements: 1 Predicted fibrosis stage: F0-1 CAP (dB/m): 160 Estimated steatosis grade: 0-1/3 % hepatocytes affected: <33% Interpretation: Based on this Fibroscan result, history, clinical examination and review of laboratory and radiological da ta, this patient likely has stage F0-1 liver fibrosis. Luis Alfredo Petersen MD PROCEDURE/MINOR SURGICAL ORD ERABLES (ABNORMAL) Differential, Automated (09/27/2017 11:00 AM EDT) [facility] Method Time Signature Neutrophils % 73.3 % [facility] Neutr Abs (ANC) 3.47 1.70 - [facility] 6.10 [facility] x10(3)/[facility] LABORATORY Lymphocytes % 15.2 % [facility] Lymphocytes Abs 0.7 (L) 0.9 - 3.2 [facility] x10(3)/[facility] LABORATORY Monocytes % 9.9 % [facility] Monocyte Abs 0.5 0.3 - 0.9 [facility] x10(3)/[facility] LABORATORY Eosinophils % 0.6 % [facility] Eosinophils Abs 0.0 0.0 - 0.4 [facility] x10(3)/[facility] LABORATORY Basophils % 0.8 % [facility] Basophils Abs 0.0 0.0 - 0.1 [facility] x10(3)/[facility] LABORATORY Immature Gran % 0.20 % [facility] Comment: Immature granulocytes(IG's)percentage an d absolute count will include metamyelocytes, myelocytes, and promyelo cytes. Blood smears from CBCs yielding IG's will be scanned manually for concor dance. If this scan disagrees with the automated IG or if promyelocytes are not ed, a manual differential will be performed. Tiffany Gran Abs 0.01 0.00 - 0.04 x10(3)/[facility] Y [facility] LABORATORY Specimen Anatomical Collection Method Collection Time Receive d Time (Source) Location / / Volume Laterality Blood specimen 09/27/2017 11:00 8 (specimen) AM EDT 11:07 AM EDT Resulting Agency Comment Spec In Lab Luis Alfredo Petersen MD HEMATOLOGY ORDERABLES Performing Organization Address City/State/[place] [address] Hemogram (09/27/2017 11:00 AM EDT) P athologist Signature WBC 4.7 4.0 - 9.5 [facility] x10(3)/[facility] LABORATORY RBC 4.70 4.00 - [facility] x10(6)/[facility] LABORATORY Hemoglobin 14.2 11.7 - [facility] gm/dL [facility]OR[facility]ORY Hematocrit 42.5 35.7 - [facility] 45.8 % [facility] MCV 90.4 82.6 - [facility] 94.4 [facility] LABORATORY MCH 30.2 27.1 - LU[facility] ALFREDO JENKINS 32.0 pg [facility] MCHC 33.4 31.7 - [facility] ALFR[facility] JENKINS 35.0 gm/dL [facility]ORY Platelets 175 145 - 357 [facility] x10(3)/[facility] LABORATORY RDWSD 44.5 37.0 - LU[facility] ALFREDO JENKINS 46.0 [facility] LABORATORY RDWCV 13.3 11.5 - [facility] GREGORY 14.1 % [facility] LABORATORY MPV 9.6 7.6 - 12.9 [facility] LABORATORY nRBC % Auto 0.0 % [facility] nRBC Abs Auto 0.000 0.000 - [facility] 0.000 [facility] x10(3)/[facility] LABORATORY Specimen Anatomical Collection Method Collection Time Receive d Time (Source) Location / / Volume Laterality Blood specimen 09/27/2017 11:00 8 (specimen) AM EDT 11:07 AM EDT Resulting Agency Comment Spec In Lab Luis Alfredo Petersen MD HEMATOLOGY ORDERABLES Performing Organization Address City/State/[place] [address] Prothrombin Time (09/27/2017 11:00 AM EDT) athologist Signature PT 12.6 11.8 - 14.0 [facility] LABORATORY INR 1.0 0.9 - 1.1 [facility] Comment: An INR <2.0 indicates adequate procoagul ant activity for hemostasis in most patients without underlying bleeding dis orders, though the INR may not adequately reflect hemostatic capacity i n patients with liver disease and synthetic impairment. The recommended ta rget INR range for therapeutic anticoagulation is 2.0 ? 3.0 for most applications, though lower and higher ranges may be appropriate depending on c linical circumstances. Specimen Anatomical Collection Method Collection Time Receive d Time (Source) Location / / Volume Laterality Blood specimen 09/27/2017 11:00 8 (specimen) AM EDT 11:07 AM EDT Resulting Agency Comment Spec In Lab Luis Alfredo Petersen MD HEMATOLOGY ORDERABLES Performing Organization Address City/State/[place] [address] Comprehensive metabolic panel (non-fasting) (09/27/2017 11:00 AM EDT) athologist Signature Glucose Lvl 99 65 - 199 [facility] mg/dL [facility] Comment: Diabetes: >=200 mg/dL plus symp toms BUN 17 8 - 18 mg/dL [facility]ORATORY Creatinine 0.79 0.70 - 1.20 mg/dL [facility] Sodium 143 135 - 145 mmol/L [facility] LABOR[facility] Potassium 4.3 3.5 - 5.0 mmol/L [facility] Comment: Please note: ??Patients with WBC >100,00 0 may have falsely elevated Potassium levels. ??For accurate Potassium quantif ication in these patients send serum separator tube (gold top) for subsequent determinations. ??Contact the Clinical Chemistry Laboratory if there are any qu estions. Chloride 102 98 - 107 mmol/L [facility] CO2 28 22 - 31 mmol/L [facility] Anion Gap 13 5 - 15 mmol/L [facility] Calcium 9.9 8.5 - 10.5 mg/dL [facility] Total Protein 7.4 6.1 - 8.0 gm/dL [facility] Albumin 4.8 3.2 - 5.2 gm/dL [facility] AST 21 0 - 30 unit/L [facility] ALT 14 0 - 30 unit/L [facility] Alk Phos 69 40 - 104 unit/L [facility] Total Bilirubin 1.0 0.2 - 1.3 mg/dL [facility] Estimated GFR >60 >=60 [facility] Comment: The reported eGFR should be multiplied b y 1.2 for patients. The MDRD is not an appropriate measure o f renal function for patients with body mass extremes or in patients with acute kidney failure. http://[employer]/DHnkdep http://[employer]/DHMCnkf Specimen Anatomical Collection Method Collection Time Receive d Time (Source) Location / / Volume Laterality Blood specimen 09/27/2017 11:00 8 (specimen) AM EDT 11:07 AM EDT Resulting Agency Comment Spec In Lab Luis Alfredo Petersen MD CHEMISTRY ORDERABLES Performing Organization Address City/State/[place] [address] documented in this encounter Visit Diagnoses Diagnosis Autoimmune hepatitis documented in this encounter Care Teams Reporting Lead Relationship Specialty Start Date End Date None PCP - General 09/27/17 01/12/22 None documented as of this encounter
--- OUTSIDE RECORDS SUMMARY | 2022-04-30 01:23 | XMS_ITS | Encounter Summary ---
:1960 Author Organization [facility] [place] [address] Care Team Providers Name Role Phone Unavailable Primary Care Provider Unavailable Encounter Details Date Type Department Care Team Description 06/23/2016 Hospital Encounter Radiology Library at [facility] [place] [address] [place] [address] [phone] (Wo rk) Social History Tobacco Use Types Packs/Day Years Used Date Never Assessed Sex Assigned at Date Recorded Not on file documented as of this encounter Plan of Treatment Not on filedocumented as of this encounter Procedures Procedure Name Priority Date/Time Associated Comments Diagnosis FILM LIBRARY STORAGE Routine 06/23/2016 12:00 AM Results for this ONLY ULTRASOUND EST procedure [facility] in STUDY the results section. documented in this encounter Results Film Library- Storage Only Ultrasound Study (06/23/2016 12:00 AM EST) Specimen (Source) Anatomical Location Collection Method / Collectio n Time Received Time / Laterality Volume Narrative [facility] - 09/09/2017 11:18 AM EST This result has an attachment that is no t available. This exam is for storage only and is aut o-finalizing. Eden Martinez MD Natalie FILM LIBRARY ORDERABLES Performing Organization Address City/State/ZIP Code Phon e Number [facility] [place], [place] documented in this encounter Visit Diagnoses Not on filedocumented in this encounter
--- OUTSIDE RECORDS SUMMARY | 2022-04-30 01:23 | XMS_ITS | Encounter Summary ---
:1960 Author Organization [facility] [place] [address] Care Team Providers Name Role Phone Unavailable Primary Care Provider Unavailable Encounter Details Date Type Department Care Team Description 08/17/2017 Orders Only Gastroenterology at [facility] Marla Petersen, Autoimmune hepatitis [facility] [place] [address] [facility] [phone] [place] [address] Social History Tobacco Use Types Packs/Day Years Used Date Never Assessed Sex Assigned at Date Recorded Not on file documented as of this encounter Plan of Treatment Not on filedocumented as of this encounter Results Prothrombin Time (09/27/2017 11:00 AM EDT) P athologist Signature PT 12.6 11.8 - 14.0 [facility] LABORATORY INR 1.0 0.9 - 1.1 [facility] Comment: An INR <2.0 indicates [...] EDT Resulting Agency Comment Spec In Lab Marla Petersen MD HEMATOLOGY ORDERABLES Performing Organization Address City/State/[place] [address] Comprehensive metabolic panel (non-fasting) (09/27/2017 11:00 AM EDT) P athologist Signature Glucose Lvl 99 65 - 199 [facility] mg/dL [facility] Comment: Diabetes: >=200 mg/dL plus symp toms BUN 17 8 - 18 mg/dL [facility] Creatinine 0.79 0.70 - 1.20 mg/dL [facility] Sodium 143 135 - 145 mmol/L [facility] Potassium 4.3 3.5 - 5.0 mmol/L [facility] Comment: Please note: ??Patients with WBC >100,00 0 may have falsely elevated Potassium levels. ??For accurate Potassium quantif ication in these patients send serum separator tube (gold top) for subsequent determinations. ??Contact the Clinical Chemistry Laboratory if there are any qu estions. Chloride 102 98 - 107 mmol/L [facility] CO2 28 22 - 31 mmol/L [facility] Anion Gap 13 5 - 15 mmol/L [facility] Calcium 9.9 8.5 - 10.5 mg/dL [facility] Total Protein 7.4 6.1 - 8.0 gm/dL [facility] Albumin 4.8 3.2 - 5.2 gm/dL [facility] AST 21 0 - 30 unit/L [facility] ALT 14 0 - 30 unit/L [facility] Alk Phos 69 40 - 104 unit/L [facility] Total Bilirubin 1.0 0.2 - 1.3 mg/dL [facility] Estimated GFR >60 >=60 [facility] Comment: The reported eGFR should be multiplied b y 1.2 for patients. The MDRD is not an appropriate measure o f renal function for patients with body mass extremes or in patients with acute kidney failure. http://[employer]/DHnkdep http://[employer]/DHMCnkf Specimen Anatomical Collection Method Collection Time Receive d Time (Source) Location / / Volume Laterality Blood specimen 09/27/2017 11:00 8 (specimen) AM EDT 11:07 AM EDT Resulting Agency Comment Spec In Lab Marla Petersen MD CHEMISTRY ORDERABLES Performing Organization Address City/State/[place] [address] documented in this encounter Visit Diagnoses Diagnosis Autoimmune hepatitis documented in this encounter
--- OUTSIDE RECORDS SUMMARY | 2022-04-30 01:25 | XMS_ITS | Encounter Summary ---
:1960 Author Organization [facility] Address [address] [place] [address] Care Team Providers Name Role Phone Rhonda Oliva PRINTED CIRCUIT PHOTOGRAPHER Primary Care Provider [phone] Encounter Details Date Type Department Care Team Description 03/30/2021 Lab Requisition [facility] Outr Resulting Lab, Pathology & Laboratory Provider [facility] [address] [place] [address] Social History Tobacco Use Types Packs/Day Years Used Date Never Assessed Alcohol Use Standard Drinks/Week Comments Yes 0 (1 standard drink = 0.6 oz pure alcoho l) wine Alcohol Habits Answer Date Recorded How often do you have a drink containing alcohol? Monthly or less 08/08/2020 How many drinks containing alcohol do you have on a Not aske d 08/08/2020 typical day when you are drinking? How often do you have six or more drinks on one Not asked 08/08/2020 occasion? Comment: wine 08/08/2020 Sex Assigned at Date Recorded Not on file documented as of this encounter Plan of Treatment Not on filedocumented as of this encounter Procedures Procedure Name Priority Date/Time Associated Diagnosis Comme nts COVID-19 TEST [facility] Today 03/30/2021 17:07 LAB PCR EDT COVID-19 TESTING Routine 03/30/2021 17:07 Results for this EDT procedure are i n the results section. documented in this encounter Results COVID-19 TEST [facility] LAB PCR (03/30/2021 17:07 EDT) Specimen Swab - Entire nasopharynx (body structur e) Performing Organization Address City/State/ZIP Code Phon e Number [facility] [address] [place] [address] SERVICES COVID-19 TESTING (03/30/2021 17:07 EDT) COVID-19 rt-PCR Negative Negative [facility] Result Comment: [facility] This test has not been FDA c leared or approved. This test has been authorized by FDA under an EUA for use by authorized laboratories. This test has been authorized only for detection of nucleic acid fro SERVICES m 2019-nCoV, not for any oth er viruses or pathogens. This test is only authorized for the duration of the declaration that circumstances exist justifying the authorization of emergency use of in vitro d iagnostic tests for detectio n and/or diagnosis of 2019-nCoV under section 564(b)(1) of Act, 21 U.S.C ?? 360bbb-3(b) (1), unless the authorization is terminated or revoked sooner. Negative results do not prec lude 2019-nCoV infection and should not be used as the sole basis for treatment or other patient management decisions. Negative results must be combined with clinical observa tions, patient history, and epidemiological informatio n. Performed on the [employer] Chrisney Fusion instrument Performing Lab Chris[facility] SERVICES Specimen Swab Performing Organization Address City/State/ZIP Code Phon e Number [facility] [address] [place] [address] SERVICES documented in this encounter Visit Diagnoses Not on filedocumented in this encounter Care Teams Hot Box Operator Relationship Specialty Start Date End Date Rhonda Oliva, PRINTED CIRCUIT PHOTOGRAPHER PCP - General 02/27/20 [address] [place], [place] [id number] documented as of this encounter
--- OUTSIDE RECORDS SUMMARY | 2022-04-30 01:25 | XMS_ITS | Encounter Summary ---
:1960 Author Organization [facility] Address [address] [place] [address] Care Team Providers Name Role Phone Rhonda Oliva UTILIZATION REVIEW NURSE Primary Care Provider [phone] Encounter Details Date Type Department Care Team Description 07/02/2021 Lab Requisition [facility] Outr Resulting Lab, Pathology & Laboratory Provider [facility] [address] [place] [address] Social History Tobacco Use Types Packs/Day Years [...] Diagnosis Comme nts COVID-19 TEST [facility] Today 07/02/2021 17:04 LAB PCR EST COVID-19 TESTING Routine 07/02/2021 17:04 Results for this EST procedure are i n the results section. documented in this encounter Results COVID-19 TEST [facility] LAB PCR (07/02/2021 17:04 EST) Specimen Swab Performing Organization Address City/State/ZIP Code Phon e Number [facility] [address] [place] [address] SERVICES COVID-19 TESTING (07/02/2021 17:04 EST) COVID-19 rt-PCR Negative Negative [facility] Result Comment: [facility] This test [...] tions, patient history, and epidemiological informatio n. Testing was performed using the stuart SARS-CoV-2 assay ([employer] on the Stuart 6800 System Performing Lab [address] [facility] Lab [facility] SERVICES Specimen Swab Performing Organization Address City/State/ZIP Code Phon e Number [facility] [address] [place] [address] SERVICES documented in this encounter Visit Diagnoses Not on filedocumented in this encounter Care Teams Steel Box Toe Inserter Relationship Specialty Start Date End Date Rhonda Oliva, MARQUISE PCP - General 02/27/20 [address] [place], [place] [address] documented as of this encounter
--- OUTSIDE RECORDS SUMMARY | 2022-04-30 01:25 | XMS_ITS | Encounter Summary ---
:1960 Author Organization [facility] Address [address] [place] [address] Care Team Providers Name Role Phone Rhonda Oliva HOOP MACHINE OPERATOR Primary Care Provider [phone] Reason for Visit Reason Comments Nephrolithiasis Encounter Details Date Type Department Care Team Description 04/25/2020 Telemedicine [facility] - Reinier Maddox MD Kidney stone (Primary [facility] [address] Dx) [address] [place] [address] [place], [place] [phone] Social History Tobacco Use Types Packs/Day Years Used Date Never Assessed Alcohol Habits Answer Date Recorded How often do you have a drink containing alcohol? Monthly or less 08/08/2020 How many drinks containing alcohol do you have on a Not aske d 08/08/2020 typical day when you are drinking? How often do you have six or more drinks on one Not asked 08/08/2020 occasion? Comment: Not asked Sex Assigned at Date Recorded Not on file documented as of this encounter Progress Notes Reinier Maddox MD - 04/25/2020 0800 EDT [facility] Video Visit Today's visit was provided through telemedicine video conferencing: The location of the patient: Home The location of the provider: Office Verbal consent: The concept of ???Telemedicine?? has been described to the patient.Patient has been informed of theanticipated benefits and possible risks. Patient understands the information provided regarding telemedicine, has had the opportunity to ask questions about this information, and all questions have been answered to patient???s satisfaction. Patient consents for the use of telemedicine in his/her medical care and authorizes the transmission of any relevant medical information to providers and their staff involved in patient???s medical or mental health care. Verbal consent obtained by myself or auxiliary staff: yes. ZOOM platform was used Subjective: Chief Complaint(s): No chief complaint on file. HPI: Sees Dr. Valle. Recent microhematuria. CT shows small bilat non obstructing stones. Denies previous hx stones, renal colic, urologic surgery etc. Feeling well. No FHx stones. States health is good: now bowel disease, bypass surgery, diabetes etc. Stable voiding. No gross hematuria. No pain. Feeling well. Drinks black tea during the day. Worried about what dietary changes she should make I have reviewed patient's tobacco history: has no history on file for tobacco. I have reviewed current problem list and current medications. ROS: ROS Negative for cough, fever, SOB, abd or flank pain Objective: Examination: Home Vitals: There were no vitals taken for this visit. Pertinent exam findings: appears well, neck supple, non-labored breathing, no wheeze, no rash on visible skin and mood and affect appropriate Data reviewed with patient: most recent imaging reviewed Assessment & Plan: Small bilateral asymptomatic renal stones. Discussed that the mainstay of prevention would be hydration, ideally with urine output > 2 liter/day. Discussed monitoring sodium content in diet: watch prepared foods. Tea is probably OK in moderation. Can balance it out by drinking more water. Avoid exce ssive oxalates as well. Consider dietary citrate: lemon juice, orange juice, etc. No FHX stones. Probably can hold off on metabolic w/u given low stone burden. Suggest we check KUB in one year to monitor. To call if any changes. She appears comfortable at this time. See back one year. A total of 20 minutes was spent on this encounter on the day of this encounter. The following individuals and their role did participate in today's encounter visit: Provider: Reinier Maddox MD Patient Reminder: Use normal new/established office E/M codes based on sjvufjk-cgeafgtd-udsbic (MDM) OR time(if not billing on time DELETE time statement) AND please include GT modifier for video visits [delete these reminders] Missy So RN - 04/25/2020 0800 EDT 02/28/20 CT showed bilateral nonobstructing kidney stones; right renal cyst. documented in this encounter Plan of Treatment Not on filedocumented as of this encounter Visit Diagnoses Diagnosis Kidney stone - Primary Calculus of kidney documented in this encounter Care Teams Fruit Thinner Relationship Specialty Start Date End Date Rhonda Oliva, HOOP MACHINE OPERATOR PCP - General 02/27/20 [address] [place] [address] documented as of this encounter
--- OUTSIDE RECORDS SUMMARY | 2022-04-30 01:25 | XMS_ITS | Encounter Summary ---
:1960 Author Organization [facility] Address [address] [place] [address] Care Team Providers Name Role Phone Rhonda Oliva ROBOTICS SPECIALIST Primary Care Provider [phone] Encounter Details Date Type Department Care Team Description 07/27/[address] [facility] - Marla Petersen acute [facility] Lab - Esteban Quan MD respiratory syndrome [address] coronavirus [address] (SARS-CoV-2) [place] [address] [place], [place] test result [phone] [id number] equivocal (Primary [phone] Dx) (Work) Social History Tobacco Use Types Packs/Day Years [...] Name Priority Date/Time Associated Diagnosis Comme nts HEPATIC FUNCTION Routine 07/29/2021 11:21 Severe acute Results for this PANEL (ALB,ALK EST respiratory syndrome proce dure are in PHOS,ALT,AST,DBIL,T coronavirus 2 the res ults OT ABEL,TOT PROT) (SARS-CoV-2) RNA section . test result equivocal documented in this encounter Results MISCELLANEOUS TEST, [place] (07/29/2021 11:21 EST) Miscellaneous Test, SEE NOTE [facility] Comment: LABORATORIES Test ? Result ? Flag ??Unit ??RefValue SARS-CoV-2 Pasha Ab, Semi-Quant, S ??SARS-CoV-2 Pasha Ab, Inte rp, S ? Positive ?Antibodies to the SARS-CoV-2 spike glycoprotein ?detected. These results suggest recent or prior ?SARS-CoV-2 infection and/or vaccination. Antibod y ?levels >/= 0.80 U/mL are considered positive by this ?assay. No minimum antibody level or threshold lofton s ?been established to indicate long-term protectiv e ?immunity against re-infection. Serologic results ?should not be used to diagnose recent SARS-CoV-2 ?infection. False-positive results for IgG antibo dies ?may occur due to cross-reactivity from pre-exist ing ?antibodies or other possible causes. ??SARS-CoV-2 Pasha Ab, Maurilio t, S ?>250 ? U/mL ? ADDITIONAL INFORMATION------- ?Testing was performed using the Fifth Generation Systemss An ti-SARS- ?CoV-2 S Reagent assay from [employer], wh ich has ?received Emergency Use Authorization (EUA) by e U.S. ?Food and Drug Administration. ?Fact sheets for this Emergency Use Authorization (EUA) ?assay can be found at the following links: ?For Healthcare Providers: ?https://www.[employer] International.gov/MobileWebsites/963130/download ?For Patients: ?https://www.[employer].gov/MobileWebsites/499699/download ??Patient's Race ? Unknown ?Patient's Ethnicity ?Unknown ?Test Performed by: ?[facility] [address] gary ?[address] [place] [address] ?Occup Ther: Neto Morel M.D. Ph.D.; CLIA # [id number] Specimen Blood - Venous blood (substance) Performing Organization Address City/State/ZIP Code Phon e Number [facility] [address] [place] [address] MISCELLANEOUS TEST, CLAUDIA (07/29/2021 11:21 EST) Pathologist [facility] Miscellaneous Test, SEE NOTE [facility] Comment: LABORATORIES Test ? Result ?? Flag ??Unit ??RefValue SARS-CoV-2 Nucleocapsid Tota l Ab, S ?Negative ? Negative ?No antibodies to SARS-CoV-2 detected. Negative r esults ?may occur in serum collected too soon following ?infection,in immunosuppressed patients or in pat ients ?with mild or asymptomatic infection. This test d oes ?not rule out active or recent COVID-19 infection and ?will not detect SARS-CoV-2 vaccine-induced antib odies. ?Follow up testing with a molecular test is recom mended ?in symptomatic patients. ? ADDITIONAL INFORMATION------- ?Testing was performed using the [employer] ?Guhl-IGWX-EpE-2 Reagent assay from [employer], ?which has received Emergency Use Authorization(E UA) ?by the U.S. Food and Drug Administration. ?Fact sheets for this Emergency Use Authorization (EUA) ?assay can be found at the following links: ?For Healthcare Providers: ?https://www.fda.gov/media/875386/download ?For Patients: ?https://www.fda.gov/media/994261/download ??Patient's Race ? Unknown ?Patient's Ethnicity ?Unknown ?Test Performed by: ?[facility] ?[address] [place] [address] ?Occup Ther: Neto Morel M.D. Ph.D.; CLIA # [id number] Specimen Blood - Venous blood (substance) Performing Organization Address City/[facility]/ZIP Code Phon e Number [facility] [address] [place] [address] HEPATIC FUNCTION PANEL (ALB,ALK PHOS,ALT,AST,DBIL,TOT ABEL,TOT PROT) (07/29/2021 11:21 EST) Pathologist Sig nature Total Protein 7.2 6.3 - 8.2 g/dL [facility] Albumin 4.6 3.4 - 4.9 g/dL [facility] Bilirubin, Total 0.7 <1.4 mg/dL [facility] Conjugated Bilirubin 0.0 <=0.3 mg/dL [facility] Unconjugated Bilirubin 0.7 <=1.1 mg/dL [facility] Alkaline Phosphatase 58 38 - 126 U/L [facility] ALT 20 <35 U/L [facility] AST 28 15 - 46 U/L [facility] Calculated Total 0.7 0.0 - 1.4 mg/dL [facility] CENTER LAB Specimen Blood - Venous blood (substance) Performing Organization Address City/[facility]/ZIP Code Phon e Number [facility] [address] [place] [address] documented in this encounter Visit Diagnoses Diagnosis Severe acute respiratory syndrome angela virus 2 (SARS-CoV-2) RNA test result equivocal - Primary documented in this encounter Care Teams Slag Mixer Relationship Specialty Start Date End Date Rhonda Oliva, MARQUISE PCP - General 02/27/20 [address] [address] [place], [place] [address] documented as of this encounter
--- OUTSIDE RECORDS SUMMARY | 2022-04-30 01:25 | XMS_ITS | Encounter Summary ---
:[address] [facility] Address [address] [place] [address] Care Team Providers Name Role Phone Rhonda Oliva Palomo EMBOSSING MACHINE TENDER Primary Care Provider [phone] Encounter Details Date Type Department Care Team Description 07/29/2021 Phlebotomy Only [facility], [facility] Severe acute - [facility] Phlebotomy respirator [facility] - coronavirus 2 Outpatient (SARS-CoV-2) RN A Phlebotomy Drawing test result [address] [place] [address] Social History Tobacco Use Types Packs/Day Years [...] Procedure Name Priority Date/Time Associated Comments Diagnosis MISCELLANEOUS TEST, Routine 07/29/2021 11:21 Severe acute Resu lts for this [facility] respiratory procedure are i n syndrome the results coronavirus 2 section. (SARS-CoV-2) RNA test result equivocal MISCELLANEOUS TEST, Routine 07/29/2021 11:21 Severe acute Resu lts for this [facility] respiratory procedure are i n syndrome the results coronavirus 2 section. (SARS-CoV-2) RNA test result equivocal documented in this encounter Results MISCELLANEOUS TEST, CLAUDIA (07/29/2021 11:21 EST) Miscellaneous Test, SEE NOTE [facility] Comment: LABORATORIES Test ? Result ? Flag [...] ADDITIONAL INFORMATION------- ?Testing was performed using the [employer]s An ti-SARS- ?CoV-2 S Reagent assay from [employer], [facility] has ?received Emergency Use Authorization (EUA) by e U.S. ?Food and Drug Administration. ?Fact sheets for this Emergency Use Authorization (EUA) ?assay can be found at the following links: ?For Healthcare Providers: ?https://www.D[employer]ot.gov/media/587893/download ?For Patients: ?https://www.Datalot.gov/media/264014/download ??Patient's Race ? Unknown ?Patient's Ethnicity ?Unknown ?Test Performed by: ?[facility] [address]ary ?[address] [place] [address] ?Hotel Dining Room Cashier: Neto Morel M.D. Ph.D.; CLIA # [id number] Specimen Blood - Venous blood (substance) Performing Organization Address City/State/ZIP Code Phon e Number [facility] [address] [place] [address] MISCELLANEOUS TEST, [place] (07/29/2021 11:21 EST) Pathologist [facility] Miscellaneous Test, SEE NOTE [facility] Comment: LABORATORIES Test ? Result ?? Flag [...] INFORMATION------- ?Testing was performed using the [employer] ?Wisx-[id number]-2 Reagent assay from [employer], ?which has received Emergency Use Authorization(E UA) ?by the U.S. Food and Drug Administration. ?Fact sheets for this Emergency Use Authorization (EUA) ?assay can be found at the following links: ?For Healthcare Providers: ?https://www.fda.gov/media/101087/download ?For Patients: ?https://www.fda.gov/media/184516/download ??Patient's Race ? Unknown ?Patient's Ethnicity ?Unknown ?Test Performed by: ?[facility] ?[address] [place] [id number] ?Hotel Dining Room Cashier: Neto Morel M.D. Ph.D.; CLIA # [id number] Specimen Blood - Venous blood (substance) Performing Organization Address City/State/ZIP Code Phon e Number [facility] [address] [place] [address] documented in this encounter Visit Diagnoses Diagnosis Severe acute respiratory syndrome angela virus 2 (SARS-CoV-2) RNA test result equivocal documented in this encounter Care Teams Ems Educator Relationship Specialty Start Date End Date Rhonda Oliva, EMBOSSING MACHINE TENDER PCP - General 02/27/20 [address] [place] [address] documented as of this encounter
--- OUTSIDE RECORDS SUMMARY | 2022-04-30 01:25 | XMS_ITS | Encounter Summary ---
:1960 Author Organization [facility] Address [address] [place] [address] Care Team Providers Name Role Phone Unknown, Provider Primary Care Provider Encounter Details Date Type Department Care Team Description 2019 Transcribe Orders Non [facility] Ancillary Marla Petersen toimmune hepatitis Services MD Avelina ([facility]) (Primary [address] [facility] [place] [phone] Social History Tobacco Use Types Packs/Day Years [...] this encounter Visit Diagnoses Diagnosis Autoimmune hepatitis ([facility]) (HCC) - P rimary Autoimmune hepatitis documented in this encounter Care Teams Human Resources Analyst Relationship Specialty Start Date End Date Unknown, Provider, PCP - General 05/02/18 02/26/20 documented as of this encounter
--- OUTSIDE RECORDS SUMMARY | 2022-04-30 01:25 | XMS_ITS | Encounter Summary ---
:1960 Author Organization [facility] Address [address] [place] [address] Care Team Providers Name Role Phone Unknown, Provider Primary Care Provider Encounter Details Date Type Department Care Team Description 05/02/[address] [facility] - Marla Petersen [facility] [place] us Avelina MD [address] [place] [id number] [place] [id number] Social History Tobacco Use Types Packs/Day Years [...] Procedure Name Priority Date/Time Associated Comments Diagnosis COMPLETE BLOOD COUNT Routine 05/02/2018 10:37 Res ults for this WITH DIFFERENTIAL EDT procedure are in (AUTO) the results section. IBC Routine 05/02/2018 10:37 Results for this EDT procedure are i n the results section. PROTIME Routine 05/02/2018 10:37 Results for this EDT procedure are i n the results section. PROTIME Routine 05/02/2018 10:37 Results for this EDT procedure are i n the results section. IRON Routine 05/02/2018 10:37 Results for this EDT procedure are i n the results section. FERRITIN Routine 05/02/2018 10:37 Results for this EDT procedure are i n the results section. COMPREHENSIVE Routine 05/02/2018 10:37 Results fo r this METABOLIC PANEL (CMP) EDT proced ure are in the results section. documented in this encounter Results IBC (05/02/2018 10:37 EDT) Pathologist Sig nature IRON BINDING CAPACITY 328 261 - 462 ug/dL [facility] Specimen Performing Organization Address City/[facility] Code Phon e Number [facility] [address] LAB FERRITIN (05/02/2018 10:37 EDT) Pathologist [facility] FERRITIN - [facility] 82 11.1 - 264.0 [facility] Comment: ng/mL [facility] The results of this assay can be falsely lowered due t o the consumption of Biotin. Specimen Performing Organization Address [facility] Phon e Number [facility] [address] LAB IRON (05/02/2018 10:37 EDT) Pathologist Sig nature SERUM IRON - [facility] 102 37 - 170 ug/dL [facility] Specimen Performing Organization Address [facility] Phon e Number [facility] [address] LAB (ABNORMAL) COMPREHENSIVE METABOLIC PANEL (CMP) (05/02/2018 10:37 EDT) Pathologist [facility] Albumin % 4.6 3.4 - 4.9 [facility] g/dL [facility] ALKALINE 67 38 - 126 U/L [facility] PHOSPHATASE - [facility] BILIRUBIN TOTAL 1.5 (H) 0.2 - 1.3 [facility] mg/dL [facility] BUN - [facility] 17 10 - 26 mg/dL [facility] CALCIUM - [facility] 10.1 8.5 - 10.5 [facility] mg/dL [facility] Chloride 101 96 - 110 [facility] mmol/L [facility] CO2 Total 29 22 - 32 mEq/L [facility] CREATININE 0.77 0.52 - 1.04 [facility] mg/dL [facility] eGFR >60 [facility] Comment: MED CENTER LAB Chronic renal impairment is defined as GFR <60 Multiply result by 1.210 for patients . eGFR calculated using the IDMS-traceable MDRD Study Equation. ??(effective 05/06/2014) Anion Gap 10 0 - 18 [facility] GLUCOSE - [facility] 98 70 - 100 [facility] mg/dL [facility] Potassium 4.7 3.5 - 5.0 [facility] mEq/L [facility] Sodium 140 136 - 145 [facility] mEq/L [facility] TOTAL PROTEIN - 7.4 6.2 - 8.2 [facility] gm/dL [facility] SGOT/AST - [facility] 38 (H) 14 - 36 U/L [facility] SGPT/ALT - [facility] 38 9 - 52 U/L [facility] Specimen Performing Organization Address City/[facility] Code Phon e Number [facility] [address] LAB PROTIME (05/02/2018 10:37 EDT) Pathologist [facility] nature PROTHROMBIN TIME - 10.1 9.5 - 13.4 [facility] Specimen Performing Organization Address City/[facility] Phon e Number [facility] [address] LAB PROTIME (05/02/2018 10:37 EDT) Pathologist Sig nature INR - [facility] 0.9 0.9 - 1.2 [facility] Comment: CENTER LAB Low intensity INR: 2.0-3.0 High intensity INR: Consult Coag Dept. Specimen Performing Organization Address [facility] Phon e Number [facility] [address] LAB (ABNORMAL) COMPLETE BLOOD COUNT WITH DIFFERENTIAL (AUTO) (05/02/2018 10:37 EDT) Pathologist Sig nature ABSOLUTE NEUTROPHIL 2.88 1.7 - 7.0 [facility] COUN - MC 10e3/ul CENTER LAB BASO # - [facility] 0.02 0.0 - 0.3 [facility] 10e3/uL [facility] BASO % - [facility] 1 0 - 2 % [facility] EOS # - [facility] 0.04 (L) 0.05 - 0.5 [facility] 10e3/[facility] EOS % - [facility] 1 0 - 5 % [facility] GRAN % - [facility] 71 40 - 80 % [facility] HEMATOCRIT - [facility] 42.9 34.0 - 47.0 % [facility] HEMOGLOBIN - [facility] 13.9 11.2 - 15.7 [facility] g/dl [place] [facility] IG# - [facility] 0.01 0 - 0.07 [facility] 10e3/uL [place] [facility] IG% - [facility] 0.2 0 - 0.9 % [facility] LYMPH # - [facility] 0.70 (L) 0.9 - 2.9 [facility] 10e3/uL [place] [facility] LYMPH% - [facility] 17 (L) 20 - 40 % [facility] MEAN CORPUSCULAR HGB 30.0 26 - 34 pg [facility] MEAN CORPUSCULAR HGB 32.4 31 - 36 g/dL [facility] CONC [facility] MEAN CELL VOLUME - 92.5 77 - 100 fl [facility] MONO # - [facility] 0.43 0.3 - 0.9 [facility] 10e3/uL [place] [facility] MONO% - [facility] 11 0 - 12 % [facility] PLATELET COUNT 189 150 - 400 [facility] 10e3/ul [place] [facility] RED BLOOD COUNT - 4.64 3.8 - [address] [facility] 10e6/ul [place] [facility] RED CELL DISTRI WIDTH 13.8 11.8 - 15.6 % [facility] ME D - [facility] LAB WHITE BLOOD COUNT - 4.1 3.5 - 10.5 [facility] 10e3/ul [place] LAB Specimen Performing Organization Address City/State/ZIP Code Phon e Number [facility] [address] [place], [place] [id number] [place] [address] LAB documented in this encounter Visit Diagnoses Not on filedocumented in this encounter Care Teams Forest Fire Management Officer Relationship Specialty Start Date End Date Unknown, Provider, PCP - General 05/02/18 02/26/20 documented as of this encounter
--- OUTSIDE RECORDS SUMMARY | 2022-04-30 01:25 | XMS_ITS | Encounter Summary ---
:1960 Author Organization [facility] Address [address] [place] [address] Care Team Providers Name Role Phone Unknown, Provider Primary Care Provider Encounter Details Date Type Department Care Team Description 12/21/2019 Results Only [facility] - [facility] Marla Petersen, Lab - [place] [facility] MD [address] [place] [address] [place] [address] [place] [phone] (Wo rk) Social History Tobacco Use Types [...] Procedure Name Priority Date/Time Associated Comments Diagnosis INR Routine 12/21/2019 8:37 Results for this EDT procedure are i n the results section. COMPLETE BLOOD COUNT Routine 12/21/2019 8:37 Resu lts for this WITH DIFFERENTIAL EDT procedure are in (AUTO) the results section. PROTIME Routine 12/21/2019 8:37 Results for this EDT procedure are i n the results section. COMPREHENSIVE Routine 12/21/2019 8:37 Results for this METABOLIC PANEL (CMP) EDT proced ure are in the results section. documented in this encounter Results (ABNORMAL) COMPREHENSIVE METABOLIC PANEL (CMP) (12/21/2019 8:37 EDT) Albumin % 4.6 3.4 - 4.9 [facility] g/dL [facility] ALKALINE 56 38 - 126 U/L [facility] PHOSPHATASE - [facility] LAB BILIRUBIN TOTAL 1.4 (H) 0.2 - 1.3 [facility] mg/dL [facility] BUN - [facility] 13 10 - 26 mg/dL [facility] CALCIUM - [facility] 9.9 8.5 - 10.5 [facility] mg/dL [facility] Chloride 104 96 - 110 [facility] mmol/L [facility] CO2 Total 28 22 - 32 mEq/L [facility] CREATININE 0.75 0.52 - 1.04 [facility] mg/dL [facility] eGFR >60 [facility] Comment: MED CENTER LAB Chronic renal impairment is defined as GFR <60 Multiply result by 1.210 for patients . eGFR calculated using the IDMS-traceable MDRD Study Equation. ??(effective 05/06/2014) Anion Gap 11 0 - 18 [facility] GLUCOSE - [facility] 80 70 - 100 [facility] mg/dL [facility] Potassium 4.1 3.5 - 5.0 [facility] mEq/L [facility] Sodium 143 136 - 145 [facility] mEq/L [facility] TOTAL PROTEIN - 7.2 6.2 - 8.2 [facility] gm/dL [facility] SGOT/AST - [facility] 31 14 - 36 U/L [facility] SGPT/ALT - [facility] 23 0 - 35 U/L [facility] Specimen Narrative [facility] - 020 10:02 EDT Does PT Have a Latex Allergy? NO Performing Organization Address City/State/ZIP Code Phon e Number [facility] [address] [place] [address] PROTIME (12/21/2019 8:37 EDT) Pathologist Sig nature PROTHROMBIN TIME - 11.1 10.3 - 13.4 [facility] Specimen Narrative [facility] - 020 9:45 EDT Does PT Have a Latex Allergy? NO Performing Organization Address City/State/ZIP Code Phon e Number [facility] [address] [place] [address] INR - CV (12/21/2019 8:37 EDT) Pathologist Sig nature INR - [facility] 1.0 0.9 - 1.1 [facility] Comment: CENTER LAB Moderate Intensity Coumadin INR = 2.0-3.0 Adjustments in anticoagulant therapy dose should be ba sed upon the INR and NOT the Protime. Specimen Narrative [facility] - 020 9:45 EDT Does PT Have a Latex Allergy? NO Performing Organization Address City/State/ZIP Code Phon e Number [facility] [address] [place] [address] (ABNORMAL) COMPLETE BLOOD COUNT WITH DIFFERENTIAL (AUTO) (12/21/2019 8:37 EDT) Pathologist Sig nature Gran # 2.5 2.2 - 8.85 [facility] 10e3/uL [place] [facility] BASO # - [facility] 0.04 0.01 - 0.11 [facility] 10e/uL [place] [facility] BASO % - [facility] 1 0 - 2 % [facility] EOS # - [facility] 0.03 0.03 - 0.61 [facility] 10e3/ul [place] [facility] EOS % - [facility] 1 0 - 5 % [facility] GRAN % - [facility] 68.0 40 - 80 % [facility] HEMATOCRIT - [facility] 41.0 34.9 - 44.4 % [facility] HEMOGLOBIN - [facility] 13.3 11.6 - 15.2 [facility] g/dl [place] [facility] IG# - [facility] 0.01 0 - 0.7 10e3/uL [facility] IG% - [facility] 0.3 0 - 0.9 % [facility] LYMPH # - [facility] 0.7 (L) 1.09 - 3.3 [facility] 10e3/ul [place] [facility] LYMPH% - [facility] 17.9 (L) 20 - 40 % [facility] MEAN CORPUSCULAR HGB 29.7 26.7 - 33.3 pg [facility] ME D - [facility] CENTER LAB MEAN CORPUSCULAR HGB 32.4 32.1 - 35.9 [facility] CONC - [facility] g/dL CENTER LAB MEAN CELL VOLUME - 91.5 81 - 98 fl [facility] MONO # - [facility] 0.4 0.1 - 0.8 [place] [id number] MONO% - [facility] 11.9 0 - 12 % [facility] PLATELET COUNT 181 141 - [address] LAB RED BLOOD COUNT - 4.48 3.86 - 5.04 [facility] 10e3[facility] RED CELL DISTRI WIDTH 13.0 <14.7 % [facility] LAB WHITE BLOOD COUNT - 3.7 (L) 4.0 - 12.[address] LAB Specimen Narrative [facility] - 020 9:43 EDT Does PT Have a Latex Allergy? NO Performing Organization Address City/State/ZIP Code Phon e Number [facility] [address] [place] [address] documented in this encounter Visit Diagnoses Not on filedocumented in this encounter Care Teams Foot Setter Relationship Specialty Start Date End Date Unknown, Provider, PCP - General 05/02/18 02/26/20 documented as of this encounter
--- OUTSIDE RECORDS SUMMARY | 2022-04-30 01:25 | XMS_ITS | Encounter Summary ---
:1960 Author Organization [facility] Address [address] [place] [address] Care Team Providers Name Role Phone Rhonda Oliva HAT [employer] BENCH HAND Primary Care Provider [phone] Reason for Visit Reason Comments Nephrolithiasis Encounter Details Date Type Department Care Team Description 08/12/2020 Telemedicine [facility] - Reinier Maddox MD Kidney stone (Primary Dx); [facility] [address] Dysuria [address] [place] [address] [place] [phone] Social History Tobacco Use Types Packs/Day [...] encounter Progress Notes Reinier Maddox MD - 08/12/2020 1300 EST [facility] Video Visit Today's visit was provided through [...] by myself or auxiliary staff: yes. ZOOM was used Subjective: Chief Complaint(s): No chief complaint on file. HPI: Small stones : bilat renal non obstructing: Seen on imaging last year. Was doing well. Recently seenby Dr. Valle: had microhematuria, no evidence UTI and negative office cystoscopy. Was having some intermittent urethral pain and then passed small piece or two of debris, the size of jacob litter'. Thinks she passed stones. Feeling well now. Occasionally notes strong smell to urine: currently no issues. No gross hematuria or fever. No abd pain. Interested to know what she can do to reduce stone recurrence. I have reviewed patient's tobacco history: has no history on file for tobacco. I have reviewed current problem list and current medications. ROS: ROS Negative for cough, fever, chills, SOB, flank pain Objective: Examination: Home Vitals: There were no vitals taken for this visit. Pertinent exam findings: appears well, neck supple, non-labored breathing, no wheeze, no rash on visible skin and mood and affect appropriate Data reviewed with patient: most recent labs reviewed: urinalysis Assessment & Plan: Conceivably she could have passed stones: I reviewed her CT from last year and her stones are small.The only way to determine if she passed stones would be to repeat stone CT: I do not think this is necessary at this time. She agrees. Has occasional strong smelling urine : no dysuria now. No pain. Discussed increasing hydration, primarily with water. She is reluctant to add citrus because of esophagitis. Monitor sodium intake as that will increase stone formation. Add magnesium supplements. Avoid excessive animal proteins. Reduce soda intake. She is amenable. For now, monitor her symptoms. See back one year. Call sooner if symptoms warrant. A total of 20 minutes was spent on this encounter on the day of this encounter. The following individuals and their role did participate in today's encounter visit: Provider: Reinier Maddox MD Patient documented in this encounter Plan of Treatment Not on filedocumented as of this encounter Visit Diagnoses Diagnosis Kidney stone - Primary Calculus of kidney Dysuria documented in this encounter Care Teams Acupressure Therapist Relationship Specialty Start Date End Date Rhonda Oliva, [employer] HAND PCP - General 02/27/20 [address],[facility] [address] [place] [address] documented as of this encounter
--- OUTSIDE RECORDS SUMMARY | 2022-04-30 01:25 | XMS_ITS | Encounter Summary ---
:1960 Author Organization [facility] Address [address] [place] [address] Care Team Providers Name Role Phone Unknown, Provider Primary Care Provider Encounter Details Date Type Department Care Team Description 05/21/2019 Results Only [facility] - [facility] Marla Petersen, Lab - [facility] MD [address]ya [address] [place] [address] [place] [address] [place] [id number] (Wo rk) Social History Tobacco Use Types [...] Priority Date/Time Associated Comments Diagnosis INR Routine 05/21/2019 15:00 Results for this EST procedure are i n the results section. COMPLETE BLOOD COUNT Routine 05/21/2019 15:00 Res ults for this WITH DIFFERENTIAL EST procedure are in (AUTO) the results section. PROTIME Routine 05/21/2019 15:00 Results for this EST procedure are i n the results section. HEPATIC FUNCTION PANEL Routine 05/21/2019 15:00 R esults for this (ALB,ALK EST procedure are i n PHOS,ALT,AST,DBIL,TOT the re sults ABEL,TOT PROT) section. COMPREHENSIVE Routine 05/21/2019 15:00 Results fo r this METABOLIC PANEL (CMP) EST proced ure are in the results section. documented in this encounter Results HEPATIC FUNCTION PANEL (ALB,ALK PHOS,ALT,AST,DBIL,TOT ABEL,TOT PROT) (05/21/2019 15:00 EST) Pathologist Sig nature BILIRUBIN DIRECT CALC - 0.1 0.0 - 0.4 mg/dL [facility] T [facility] Unconjugated Bilirubin 0.8 0.0 - 1.1 mg/dL [facility] Specimen Narrative [facility] - 019 17:39 EST Does PT Have a Latex Allergy? NO Performing Organization Address City/State/ZIP Code Phon e Number [facility] [address] LAB COMPREHENSIVE METABOLIC PANEL (CMP) (05/21/2019 15:00 EST) Albumin % 4.4 3.4 - 4.9 [facility] g/dL [facility] LAB ALKALINE 61 38 - 126 U/L [facility] PHOSPHATASE - [facility] BILIRUBIN TOTAL 0.9 0.2 - 1.3 [facility] mg/dL [facility] LAB BUN - [facility] 14 10 - 26 mg/dL [facility] CALCIUM - [facility] 9.5 8.5 - 10.5 [facility] mg/dL [facility] LAB Chloride 101 96 - 110 [facility] mmol/L [facility] LAB CO2 Total 30 22 - 32 mEq/L [facility] CREATININE 0.69 0.52 - 1.04 [facility] mg/dL [facility] LAB eGFR >60 [facility] Comment: [facility] LAB Chronic renal impairment is defined as GFR <60 Multiply result by 1.210 for patients . eGFR calculated using the IDMS-traceable MDRD Study Equation. ??(effective 05/06/2014) Anion Gap 7 0 - 18 [facility] GLUCOSE - [facility] 88 70 - 100 [facility] mg/dL [facility] LAB Potassium 4.0 3.5 - 5.0 [facility] mEq/L [facility] LAB Sodium 138 136 - 145 [facility] mEq/L [facility] LAB TOTAL PROTEIN - 7.3 6.2 - 8.2 [facility] gm/dL [facility] LAB SGOT/AST - [facility] 35 14 - 36 U/L [facility] SGPT/ALT - [facility] 32 9 - 52 U/L [facility] Specimen Narrative [facility] - 17:39 EST Does PT Have a Latex Allergy? NO Performing Organization Address [facility]/ZIP Code Phon e Number [facility] [address] LAB PROTIME (05/21/2019 15:00 EST) Pathologist Sig nature PROTHROMBIN TIME - 10.9 10.3 - 13.4 [facility] Specimen Narrative [facility] - 17:26 EST Does PT Have a Latex Allergy? NO Performing Organization Address City/[facility]/ZIP Code Phon e Number [facility] [address] LAB INR - [facility] (05/21/2019 15:00 EST) Pathologist Sig nature INR - [facility] 1.0 0.9 - 1.1 [facility]: CENTER LAB Moderate Intensity Coumadin INR = 2.0-3.0 Adjustments in anticoagulant therapy dose should be ba sed upon the INR and NOT the Protime. Specimen Narrative [facility] - 17:26 EST Does PT Have a Latex Allergy? NO Performing Organization Address [facility] Phon e Number [facility] [address] LAB (ABNORMAL) COMPLETE BLOOD COUNT WITH DIFFERENTIAL (AUTO) (05/21/2019 15:00 EST) Pathologist Sig nature ABSOLUTE NEUTROPHIL 3.4 2.2 - 8.85 [facility] COUN - [facility] 10e3/uL CENTER LAB BASO # - [facility] 0.03 0.01 - 0.11 [facility] 10e/uL CENTER LAB BASO % - [facility] 1 0 - 2 % [facility] EOS # - [facility] 0.03 0.03 - 0.61 [facility] 10e3/ul CENTER LAB EOS % - [facility] 1 0 - 5 % [facility] GRAN % - [facility] 73.8 40 - 80 % [facility] LAB HEMATOCRIT - CV 40.1 34.9 - 44.4 % [facility] LAB HEMOGLOBIN - [facility] 13.1 11.6 - 15.2 [facility] g/dl [place] [facility] IG# - [facility] 0.01 0 - 0.7 10e3/uL [facility] IG% - [facility] 0.2 0 - 0.9 % [facility] LYMPH # - [facility] 0.7 (L) 1.09 - 3.3 [facility] 10e3/ul [place] [facility] LYMPH% - [facility] 15.4 (L) 20 - 40 % [facility] LAB MEAN CORPUSCULAR HGB 30.3 26.7 - 33.3 pg [facility] ME D - [facility] CENTER LAB MEAN CORPUSCULAR HGB 32.7 32.1 - 35.9 [facility] CONC - [facility] g/dL [place] [facility] MEAN CELL VOLUME - 92.6 81 - 98 fl [facility] MONO # - [facility] 0.4 0.1 - 0.8 [facility] 10e3/uL [place] [facility] MONO% - [facility] 9.2 0 - 12 % [facility] LAB PLATELET COUNT 195 141 - 377 [facility] 10e3/ul [place] [facility] RED BLOOD COUNT - 4.33 3.86 - 5.04 [facility] 10e3/ul [place] [facility] RED CELL DISTRI WIDTH 13.1 <14.7 % [facility] LAB WHITE BLOOD COUNT - 4.6 4.0 - 12.4 [facility] 10e3/ul [place] [facility] Specimen Narrative [facility] - 019 17:16 EST Does PT Have a Latex Allergy? NO Performing Organization Address City/State/ZIP Code Phon e Number [facility] [address] [place] [address] [facility] documented in this encounter Visit Diagnoses Not on filedocumented in this encounter Care Teams Hospital Receiving Clerk Relationship Specialty Start Date End Date Unknown, Provider, PCP - General 05/02/18 02/26/20 documented as of this encounter
--- OUTSIDE RECORDS SUMMARY | 2022-04-30 01:25 | XMS_ITS | Clinical Summary ---
:1960 Author Organization [facility] Address [address] [place] [address] Care Team Providers Name Role Phone Rhonda Oliva CORSETIER Primary Care Provider [phone] Allergies Active Allergy Reactions Severity Noted Date Comments Epinephrine 09/27/2017 Faints Medications Medication Sig Dispensed Refills Start Date End Date Status azaTHIOprine (IMURAN) 75 mg. 0 12/07/2019 Active 50 mg tablet omeprazole (PRILOSEC Take 20 mg by 0 Active OTC) 20 mg tablet mouth as needed. LORazepam (ATIVAN) 0.5 Take 0.5 mg by 0 Active mg tablet mouth every 6 hours as needed. eszopiclone (LUNESTA) 2 Take 2 mg by 0 Active mg tablet mouth. diazePAM (VALIUM) 5 mg Take 10 mg by 0 Active tablet mouth 2 times daily. Take as needed 30 minutes prior to procedure. naproxen sodium (ALEVE) Take 220 mg by 0 Active 220 mg tablet mouth every 12 hours. Take 2 tablets with food as needed every 12 hours. 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 Encounters Date Type Specialty Care Team Description 02/01/2022 Hospital Encounter Radiology Other spe cified postprocedural states from Last 3 Months Surgical History Surgery Date Site/Laterality Comments LIVER BIOPSY Medical History Medical History Date Comments History of nephrolithiasis Microhematuria Personal history of colonic polyps Family History Medical History Relation Name Comments Esophageal Cancer Father Relation Name Status Comments Father Mother Alive Social History Tobacco Use Types Packs/Day Years [...] Assigned at Date Recorded Not on file Plan of Treatment Health Maintenance Due Date Last Done Comments Hepatitis C Screen 1960 COVID-19 Vaccine (3 - Pfizer risk series) 11/13/20202020, 09/25/2020 Procedures Procedure Name Priority Date/Time Associated Diagnosis Comme nts XR CHEST 2 VIEWS Routine 02/01/2022 10:11 Other specified Resu lts for this EDT postprocedural states proced ure are in the results section. from Last 3 Months Results XR CHEST 2 VIEWS (02/01/2022 10:11 EDT) Anatomical Region Laterality Modality Computed Radiography Specimen Impressions [facility] [place] - 02/01/2022 10:24 EDT 1. No acute pulmonary process detected. No pleural effusion evident. Narrative [facility] - 02/01/2022 10:24 EDT INDICATION: HX OF ESOPHAGOGASTRODUODENOSCOPY, EVAL FOR WORSENING EFFUSION; HX OF ESOPHAGOGASTRODUODENOSCOPY, EVAL FOR WORSENING EFFUSION TECHNIQUE: ??Chest, PA and lateral views COMPARISON: CT abdomen pelvis 02/27/2020 FINDINGS: The lungs are clear. The cardi omediastinal silhouette and pulmonary vessels are ??within normal limits. No pleural effusion or pneumothorax is seen. Procedure Note Josiah Hassan MD - 02/01/2022 INDICATION: HX OF ESOPHAGOGASTRODUODENOS COPY, EVAL FOR WORSENING EFFUSION; HX OF ESOPHAGOGASTRODUODENOSCOPY, EVAL FOR WORSENING EFFUSION TECHNIQUE: Chest, PA and lateral views COMPARISON: CT abdomen pelvis 02/27/2020 FINDINGS: The lungs are clear. The cardi omediastinal silhouette and pulmonary vessels are within normal limits. No pleural effusion or pneumothorax is seen. IMPRESSION 1. No acute pulmonary process detected. No pleural effusion evident. Performing Organization Address City/State/ZIP Code Phon e Number [facility] from Last 3 Months Insurance Payer Benefit Plan / Subscriber ID Effective Phone Address T ype Group Dates [facility] [id number] 2018-Prese [phone] [address] [facility] [employer] [address] [place] [address] EricAnika S Personal/Family Self 1960 [address] [place] [address] EricAnika S Personal/Family Self 1960 [address] [place] [address] EricAnika S Personal/Family Self 1960 [address] [place] [address] EricAnika S Personal/Family Self 1960 [address] [place] [address] EricAnika S Personal/Family Self 1960 [address] [place] [address] EricAnika S Personal/Family Self 1960 [address] [place] [address] EricAnika S Personal/Family Self 1960 [address] [place] [address] Care Teams Cloth Presser Relationship Specialty Start Date End Date Rhonda Oliva, CORSETIER PCP - General 02/27/20 [address] [place] [address]
--- OUTSIDE RECORDS SUMMARY | 2022-04-30 01:25 | XMS_ITS | Encounter Summary ---
:1960 Author Organization [facility] Address [address] [place] [address] Care Team Providers Name Role Phone Rhonda Oliva DISBURSING OFFICER Primary Care Provider [phone] Encounter Details Date Type Department Care Team Description 02/28/2020 Results Only Imaging [facility] - Pilar Valle, [facility] Radiology Resul ts [address] [place] [address] [place], [place] [phone] Social History Tobacco Use Types Packs/Day Years [...] Priority Date/Time Associated Diagnosis Comme nts CT ABDOMEN PELVIS W 02/28/2020 14:08 Resu lts for this WO CONTRAST EDT procedure are i n the results section. documented in this encounter Results CT ABDOMEN PELVIS W WO CONTRAST (02/28/2020 14:08 EDT) Specimen Narrative [facility] - 02/28/2020 14:08 EDT ? EXAM: CAT SCAN/ABDOMEN PELVIS W/WO CONTRA EX. D/ ([id number]) ? CLINICAL INFORMATION: ? HEMATURIA ? R/O STONES ? INDICATION: HEMATURIA, R/O STONES . ? COMPARISON: None. ? TECHNIQUE: Noncontrast and contra st-enhanced CT scan of the abdomen ? and pelvis was performed utilizin g nonionic IV contrast. 100 mL of ? Omnipaque 350 was utilized. ? FINDINGS: ? Lower chest: Minimal atelectasis and/or scar in the lung bases. ? Hepatobiliary: Normal liver. Norm al gallbladder and common bile duct. ? Spleen, pancreas, adrenal glands: Normal pancreas. No pancreatic duct ? dilatation. Normal spleen. Normal adrenal glands. ? Kidneys, ureters, bladder: 2 punc toure nonobstructing stones in the ? right kidney upper and midpole an d one nonobstructing punctate stone ? in the left kidney upper pole. No stones within either ureter. 10 mm ? cyst in the right kidney midpole. No focal left renal lesion. No ? hydronephrosis. Unremarkable urin isaiah bladder. ? Reproductive: The uterus and adne xa are unremarkable. ? Gastrointestinal: Small to modera te size gastric hiatus hernia. The ? small bowel and colon are unremar kable. ? Peritoneal cavity / Subperitoneal space: Normal peritoneal cavity and ? subperitoneal space. ? Lymphovascular: Unremarkable. No pathologically enlarged lymph nodes. ? No significant atherosclerosis. ? Abdominal wall: Unremarkable. No hernia or mass. ? Musculoskeletal: Mild degenerativ e spondylosis of the lumbar spine. ? Grade 1 anterolisthesis of L4. No fracture or suspicious bone lesion. ? IMPRESSION: ? 1. Bilateral nephrolithiasis. ? PAGE 1 ? Selena d Report ? (CONTINUED) ? 2. Right renal cyst. ? 3. Gastric hiatus hernia. ? REPORT SIGNED IN OTHER VENDOR SYSTEM 02/28/2020 ?Reported B y: Zeeshan Escamilla MD ? CC: ? Transcribed Date/Time: 02/28/2020 (1408) ? Legal Financial Specialist: SCR ? Printed Date/Time: 02/28/2020 (14 09) ? PAGE 2 ? Selena d Report ? Procedure Note Zeeshan Escamilla MD - 0 EXAM: CAT SCAN/ABDOMEN PELVIS W/WO CONT RA EX. D/ ([id number]) CLINICAL INFORMATION: HEMATURIA R/O STONES INDICATION: HEMATURIA, R/O STONES. COMPARISON: None. TECHNIQUE: Noncontrast and contrast-enh anced CT scan of the abdomen and pelvis was performed utilizing ravi onic IV contrast. 100 mL of Omnipaque 350 was utilized. FINDINGS: Lower chest: Minimal atelectasis and/or scar in the lung bases. Hepatobiliary: Normal liver. Normal gal lbladder and common bile duct. Spleen, pancreas, adrenal glands: Shweta l pancreas. No pancreatic duct dilatation. Normal spleen. Normal adren al glands. Kidneys, ureters, bladder: 2 punctate n onobstructing stones in the right kidney upper and midpole and one nonobstructing punctate stone in the left kidney upper pole. No stone s within either ureter. 10 mm cyst in the right kidney midpole. No fo manpreet left renal lesion. No hydronephrosis. Unremarkable urinary bl adder. Reproductive: The uterus and adnexa are unremarkable. Gastrointestinal: Small to moderate siz e gastric hiatus hernia. The small bowel and colon are unremarkable. Peritoneal cavity / Subperitoneal space : Normal peritoneal cavity and subperitoneal space. Lymphovascular: Unremarkable. No pathol ogically enlarged lymph nodes. No significant atherosclerosis. Abdominal wall: Unremarkable. No hernia or mass. Musculoskeletal: Mild degenerative spon dylosis of the lumbar spine. Grade 1 anterolisthesis of L4. No fract ure or suspicious bone lesion. IMPRESSION: 1. Bilateral nephrolithiasis. PAGE 1 Signed Report (CONTINUED) 2. Right renal cyst. 3. Gastric hiatus hernia. REPORT SIGNED IN OTHER VENDOR SYSTEM 02/28/2020 Reported By: Zeeshan Escamilla MD CC: Transcribed Date/Time: 02/28/2020 (4348 ) Legal Financial Specialist: Printed Date/Time: 02/28/2020 (1043) PAGE 2 Signed Report Performing Organization Address City/State/ZIP Code Phon e Number [facility] documented in this encounter Visit Diagnoses Not on filedocumented in this encounter Care Teams Service Transformer Repair Supervisor Relationship Specialty Start Date End Date Rhonda Oliva FNP PCP - General 02/27/20 [address] [place] [address] documented as of this encounter
--- OUTSIDE RECORDS SUMMARY | 2022-04-30 01:25 | XMS_ITS | Encounter Summary ---
:1960 Author Organization [facility] Address [address] [place] [address] Care Team Providers Name Role Phone Unknown, Provider Primary Care Provider Encounter Details Date Type Department Care Team Description 02/12/2020 Results Only [facility] Lila Chatterjee i, MD Lab - [facility] [address] [facility] [address] [place] [address] [place] [address] [phone] Social History Tobacco Use Types Packs/Day Years [...] Name Priority Date/Time Associated Diagnosis Comme nts BACTERIAL CULTURE, Routine 02/12/2020 16:00 Resul ts for this URINE EDT procedure are i n the results section. documented in this encounter Results BACTERIAL CULTURE, URINE (02/12/2020 16:00 EDT) Pathologist Sig nature USUAL UROGENITAL UUV [facility] COLONY COUNT 10,000-100,000 CFU/ML [facility] Specimen Urine (substance) Performing Organization Address City/State/ZIP Code Phon e Number [facility] [address] [place] [address] documented in this encounter Visit Diagnoses Not on filedocumented in this encounter Care Teams Top Distribution Executive Relationship Specialty Start Date End Date Unknown, Provider, PCP - General 05/02/18 02/26/20 documented as of this encounter
--- OUTSIDE RECORDS SUMMARY | 2022-04-30 01:25 | XMS_ITS | Encounter Summary ---
:1960 Author Organization [facility] Address [address] [place] [address] Care Team Providers Name Role Phone Rhonda Oliva Palomo RV REPAIRER Primary Care Provider [phone] Encounter Details Date Type Department Care Team Description 08/08/2020 Abstract [facility] - [facility] Urology Missy Wil[facility] [address] [place] [address] Social History Tobacco Use Types Packs/Day Years [...] Diagnoses Not on filedocumented in this encounter Historical Medications This list may reflect changes made after this encounter. Medication Sig Dispensed Refills Start Date End Date naproxen sodium (ALEVE) Take 220 mg by mouth 0 220 mg tablet every 12 hours. Take 2 tablets with food as needed every 12 hours. diazePAM (VALIUM) 5 mg Take 10 mg by mouth 2 0 tablet times daily. Take as needed 30 minutes prior to procedure. eszopiclone (LUNESTA) 2 mg Take 2 mg by mouth. 0 tablet LORazepam (ATIVAN) 0.5 mg Take 0.5 mg by mouth 0 tablet every 6 hours as needed. omeprazole (PRILOSEC OTC) Take 20 mg by mouth 0 20 mg tablet as needed. azaTHIOprine (IMURAN) 50 75 mg. 0 12/07/2019 mg tablet added in this encounter Care Teams Gas System Operator Relationship Specialty Start Date End Date Rhonda Oliva, RV REPAIRER PCP - General 02/27/20 [address] [place] [address] documented as of this encounter
--- OUTSIDE RECORDS SUMMARY | 2022-04-30 01:25 | XMS_ITS | Encounter Summary ---
:1960 Author Organization [facility] Address [address] [place] [address] Care Team Providers Name Role Phone Hazel Rhonda C COMBINATION WELDER Primary Care Provider [phone] Reason for Referral Radiology Services (Routine/Next Available) - Authorization Not Required Specialty Diagnoses / Procedures Referred By Contact Refer red To Contact Diagnoses Other specified postprocedural states Charly Tinajero CV Procedures XR CHEST [address] [place] [address] [place] [phone] Referral ID Status Reason Start Expiration Visits Visits Date Date Requested Authorized [id number] Authorization Not 01/25/2022 1 1 Required Reason for Visit Radiology Services (Routine/Next Available) - Authorization Not Required Specialty Diagnoses / Procedures Referred By Contact Refer red To Contact Diagnoses Other specified postprocedural states Charly Tinajero CV Procedures XR CHEST [address] [place] [address] [place] [phone] Referral ID Status Reason Start Expiration Visits Visits Date Date Requested Authorized [id number] Authorization Not 01/25/2022 1 1 Required Encounter Details Date Type Department Care Team Description 02/01/2022 Hospital Encounter [facility] - [facility] specified [facility] Xray postprocedural states [address] [place] [address] Social History Tobacco Use Types Packs/Day Years [...] Sig Dispensed Refills Start Date End Date azaTHIOprine (IMURAN) 50 75 mg. 0 12/07/2019 mg tablet diazePAM (VALIUM) 5 mg Take 10 mg by mouth 2 0 tablet times daily. Take as needed 30 minutes prior to procedure. eszopiclone (LUNESTA) 2 mg Take 2 mg by mouth. 0 tablet LORazepam (ATIVAN) 0.5 mg Take 0.5 mg by mouth 0 tablet every 6 hours as needed. naproxen sodium (ALEVE) Take 220 mg by mouth 0 220 mg tablet every 12 hours. Take 2 tablets with food as needed every 12 hours. omeprazole (PRILOSEC OTC) Take 20 mg by mouth 0 20 mg tablet as needed. documented as of this encounter Discharge Disposition Disposition Code Departure Means Destination Home or Self Care documented in this encounter Plan of Treatment Not on filedocumented as of this encounter Procedures Procedure Name Priority Date/Time Associated Diagnosis Comme nts XR CHEST 2 VIEWS Routine 02/01/2022 10:11 Other specified Resu lts for this EDT postprocedural states proced ure are in the results section. documented in this encounter Results XR CHEST 2 VIEWS (02/01/2022 10:11 EDT) Anatomical Region Laterality Modality Computed Radiography Specimen Impressions [facility] - 02/01/2022 10:24 EDT 1. No acute pulmonary process detected. No pleural effusion evident. Narrative [facility] - 02/01/2022 10:24 EDT INDICATION: HX OF ESOPHAGOGASTRODUODENOSCOPY, EVAL FOR WORSENING EFFUSION; HX OF ESOPHAGOGASTRODUODENOSCOPY, EVAL FOR WORSENING EFFUSION TECHNIQUE: ??Chest, PA and lateral views COMPARISON: CT abdomen pelvis 02/27/2020 FINDINGS: The lungs are clear. The cardi omediastinal silhouette and pulmonary vessels are ??within normal limits. No pleural effusion or pneumothorax is seen. Procedure Note Hassan, Josiah Edward, MD - 02/01/2022 INDICATION: HX OF ESOPHAGOGASTRODUODENOS [...] Organization Address City/State/ZIP Code Phon e Number [facility] documented in this encounter Visit Diagnoses Diagnosis Other specified postprocedural states documented in this encounter Care Teams Manager Project Management Relationship Specialty Start Date End Date Rhonda Oliva, COMBINATION WELDER PCP - General 02/27/20 [address] [place] [address] documented as of this encounter
--- OUTSIDE RECORDS SUMMARY | 2022-04-30 01:25 | XMS_ITS | Encounter Summary ---
:1960 Author Organization [facility] Address [address] [place] [address] Care Team Providers Name Role Phone Rhonda Oliva ROTARY ROCK DRILLING MACHINE OPERATOR Primary Care Provider [phone] Encounter Details Date Type Department Care Team Description 05/28/2020 Lab Requisition [facility] Lila Valle for Pathology & L, gynecological Laboratory Medicine - [address] [facility] examination (general) [place], [place] (routine) without [address] [facility] [address] [place] [address] [phone] Social History Tobacco Use Types Packs/Day Years [...] Name Priority Date/Time Associated Diagnosis Comme nts PAP TEST Today 05/27/2020 12:00 EST Results for this procedure are i n the results section . documented in this encounter Results PAP TEST (05/27/2020 12:00 EST) Specimens A. Cervix and/or [facility] Endocervix , ThinPrep CENTER Imaging System with LABORATORY Manual Evaluation SERVICES Specimen Adequacy Satisfactory for [facility] Evaluation - CENTER transformation zone LABORATORY component present SERVICES General Negative for [facility] Categorization intraepithelial CENTER lesion or malignancy LABORATORY SERVICES Descriptive Reactive cellular [facility] Diagnosis changes associated CENTER with inflammation LABORATORY present (includes SERVICES repair). Attestation By the signature below, the attending physician certifies that they have personally conducted a gross and/or microscopic [facility] Electronically examination of the described specimens and rendered or confirmed the above diagnosis. CENTER signed by JEREL Camp MD SERVICES on 06/05/2020 at 0912 Clinical History Clinical History, [facility] Signs, Symptoms, CENTER Chief Complaint, LABORATORY Pertaining to This SERVICES Order: See below Performing Lab [facility] LABORATORY SERVICES Scanned Images [facility] LABORATORY SERVICES Specimen Pap Test - Cervix and/or Endocervix Performing Organization Address City/State/ZIP Code Phon e Number [facility] [address] [place] [address] SERVICES documented in this encounter Visit Diagnoses Diagnosis Encounter for gynecological examination (general) (routine) without abnormal findings documented in this encounter Care Teams Manager Materials Management Relationship Specialty Start Date End Date Rhonda Oliva, ROTARY ROCK DRILLING MACHINE OPERATOR PCP - General 02/27/20 [address] [place], [place] [phone] documented as of this encounter
--- OUTSIDE RECORDS SUMMARY | 2022-04-30 01:25 | XMS_ITS | Encounter Summary ---
:1960 Author Organization [facility] Address [address] [place] [address] Care Team Providers Name Role Phone Unknown, Provider Primary Care Provider Encounter Details Date Type Department Care Team Description 05/09/2019 Orders Only Non [facility] Ancillary Marla Petersen is, autoimmune Services MD Avelina ([facility] (Primary Dx) [address] [place] [id number] Social History Tobacco Use Types Packs/Day Years [...] as of this encounter Visit Diagnoses Diagnosis Hepatitis, 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
--- OUTSIDE RECORDS SUMMARY | 2022-04-30 01:25 | XMS_ITS | Encounter Summary ---
:1960 Author Organization [facility] Address [address] [place] [address] Care Team Providers Name Role Phone Rhonda Oliva HYDRATE CONTROL TENDER Primary Care Provider [phone] Encounter Details Date Type Department Care Team Description 06/02/2020 Results Only [facility] Marla Petersen, Lab - [facility] MD [address] [place] [address] [place] [address] [place] [phone] (Wo rk) Social History Tobacco Use Types [...] Priority Date/Time Associated Comments Diagnosis INR Routine 06/02/2020 8:47 Results for this EST procedure are i n the results section. COMPLETE BLOOD COUNT Routine 06/02/2020 8:47 Resu lts for this WITH DIFFERENTIAL EST procedure are in (AUTO) the results section. PROTIME Routine 06/02/2020 8:47 Results for this EST procedure are i n the results section. COMPREHENSIVE Routine 06/02/2020 8:47 Results for this METABOLIC PANEL (CMP) EST proced ure are in the results section. documented in this encounter Results COMPREHENSIVE METABOLIC PANEL (CMP) (06/02/2020 8:47 EST) Albumin % 4.4 3.4 - 4.9 [facility] g/dL [facility] ALKALINE 50 38 - 126 U/L [facility] PHOSPHATASE - [facility] BILIRUBIN TOTAL 1.0 0.2 - 1.3 [facility] mg/dL [facility] BUN - [facility] 12 10 - 26 mg/dL [facility] CALCIUM - [facility] 10.0 8.5 - 10.5 [facility] mg/dL [facility] Chloride 104 96 - 110 [facility] mmol/L [facility] CO2 Total 29 22 - 32 mEq/L [facility] CREATININE 0.69 0.52 - 1.04 [facility] mg/dL [facility] eGFR >60 [facility] Comment: [facility] LAB Chronic renal impairment is defined as GFR <60 Multiply result by 1.210 for patients . eGFR calculated using the IDMS-traceable MDRD Study Equation. ??(effective 05/06/2014) Anion Gap 8 0 - 18 [facility] GLUCOSE - [facility] 90 70 - 100 [facility] mg/dL [facility] Potassium 4.2 3.5 - 5.0 [facility] mEq/L [facility] Sodium 141 136 - 145 [facility] mEq/L [facility] TOTAL PROTEIN - 6.9 6.2 - 8.2 [facility] gm/dL [facility] SGOT/AST - [facility] 27 14 - 36 U/L [facility] SGPT/ALT - [facility] 16 0 - 35 U/L [facility] Specimen Narrative [facility] - 020 9:58 EST Does PT Have a Latex Allergy? NO Performing Organization Address City/State/ZIP Code Phon e Number [facility] [address] [phone] PROTIME (06/02/2020 8:47 EST) Pathologist Sig nature PROTHROMBIN TIME - 11.3 10.3 - 13.4 [facility] LAB Specimen Narrative [facility] - 020 9:45 EST Does PT Have a Latex Allergy? NO Performing Organization Address City/State/ZIP Code Phon e Number [facility] [address] [place] [address] INR - [facility] (06/02/2020 8:47 EST) Pathologist Sig nature INR - CV 1.0 0.9 - 1.1 [facility] Comment: CENTER LAB Moderate Intensity Coumadin INR = 2.0-3.0 Adjustments in anticoagulant therapy dose should be ba sed upon the INR and NOT the Protime. Specimen Narrative [facility] - 020 9:45 EST Does PT Have a Latex Allergy? NO Performing Organization Address City/State/ZIP Code Phon e Number [facility] [address] [place] [address] (ABNORMAL) COMPLETE BLOOD COUNT WITH DIFFERENTIAL (AUTO) (06/02/2020 8:47 EST) Pathologist Sig nature Gran # 2.6 2.2 - 8.85 [facility] 10e3/uL [place] [facility] BASO # - [facility] 0.02 0.01 - 0.11 [facility] 10e/uL [place] BASO % - [facility] 1 0 - 2 % [facility] EOS # - [facility] 0.03 0.03 - 0.61 [facility] 10e3/ul [facility] LAB EOS % - [facility] 1 0 - 5 % [facility] GRAN % - [facility] 72.7 40 - 80 % [facility] HEMATOCRIT - CV 39.8 34.9 - 44.4 % [facility] HEMOGLOBIN - CV 12.9 11.6 - 15.2 [facility] g/dl [facility] LAB IG# - [facility] 0.01 0 - 0.7 10e3/uL [facility] IG% - [facility] 0.3 0 - 0.9 % [facility] LYMPH # - [facility] 0.5 (L) 1.09 - 3.3 [facility] 10e3/ul [facility] LAB LYMPH% - [facility] 15.2 (L) 20 - 40 % [facility] MEAN CORPUSCULAR HGB 29.6 26.7 - 33.3 pg [facility] ME D - [facility] CENTER LAB MEAN CORPUSCULAR HGB 32.4 32.1 - 35.9 [facility] CONC - [facility] g/dL [facility] LAB MEAN CELL VOLUME - 91.3 81 - 98 fl [facility] CENTER LAB MONO # - [facility] 0.4 0.1 - 0.8 [facility] 10e3/uL [place] [facility] MONO% - [facility] 10.4 0 - 12 % [facility] PLATELET COUNT 195 141 - [address] [place] [id number] [place] [facility] RED BLOOD COUNT - 4.36 3.86 - 5.04 [facility] 10e3/ul [place] [facility] RED CELL DISTRI WIDTH 13.2 <14.7 % [facility] - [facility] WHITE BLOOD COUNT - 3.6 (L) 4.0 - 12.4 [facility] 10e3/[facility] LAB Specimen Narrative [facility] - 020 9:41 EST Does PT Have a Latex Allergy? NO Performing Organization Address City/State/ZIP Code Phon e Number [facility] [address] [place] [address] documented in this encounter Visit Diagnoses Not on filedocumented in this encounter Care Teams Turning Machine Operator Relationship Specialty Start Date End Date Rhonda Oliva, HYDRATE CONTROL TENDER PCP - General 02/27/20 [address] [place], [place] [phone] documented as of this encounter
--- OUTSIDE RECORDS SUMMARY | 2022-04-30 01:25 | XMS_ITS | Encounter Summary ---
:1960 Author Organization [facility] Address [address] [place] [address] Care Team Providers Name Role Phone Rhonda Oliva HEALTH TECHNICAL WRITER Primary Care Provider [phone] Encounter Details Date Type Department Care Team Description 01/12/2021 Results Only [facility] - [facility] Marla Petersen, Lab - [facility] MD [address]ya [address] [place] [address] [place] [address] [place] [phone] (Wo rk) Social History Tobacco Use Types [...] Priority Date/Time Associated Comments Diagnosis INR Routine 01/12/2021 8:42 Results for this EDT procedure are i n the results section. COMPLETE BLOOD COUNT Routine 01/12/2021 8:42 Resu lts for this WITH DIFFERENTIAL EDT procedure are in (AUTO) the results section. PROTIME Routine 01/12/2021 8:42 Results for this EDT procedure are i n the results section. COMPREHENSIVE Routine 01/12/2021 8:41 Results for this METABOLIC PANEL (CMP) EDT proced ure are in the results section. documented in this encounter Results PROTIME (01/12/2021 8:42 EDT) Pathologist Sig nature PROTHROMBIN TIME - 11.4 10.3 - 13.4 [facility] LAB Specimen Narrative [facility] - 10:24 EDT Does PT Have a Latex Allergy? NO Performing Organization Address [facility]/ZIP Code Phon e Number [facility] [address] [place] [address] INR - CV (01/12/2021 8:42 EDT) Pathologist Sig nature INR - [facility] 1.0 0.9 - 1.1 [facility] Comment: CENTER LAB Moderate Intensity Coumadin INR = 2.0-3.0 Adjustments in anticoagulant therapy dose should be ba sed upon the INR and NOT the Protime. Specimen Narrative [facility] - 021 10:24 EDT Does PT Have a Latex Allergy? NO Performing Organization Address City/[facility] Phon e Number [facility] [address] [place] [address] (ABNORMAL) COMPLETE BLOOD COUNT WITH DIFFERENTIAL (AUTO) (01/12/2021 8:42 EDT) Pathologist Sig [facility] ABSOLUTE NEUTROPHIL 2.5 2.2 - 8.85 [facility] COUN - [facility] 10e3/uL [facility] LAB BASO # - [facility] 0.03 0.01 - 0.11 [facility] 10e/uL [facility] LAB BASO % - [facility] 1 0 - 2 % [facility] EOS # - [facility] 0.04 0.03 - 0.61 [facility] 10e3/ul [facility] LAB EOS % - [facility] 1 0 - 5 % [facility] GRAN % - [facility] 68.7 40 - 80 % [facility] HEMATOCRIT - [facility] 39.3 34.9 - 44.4 % [facility] HEMOGLOBIN - [facility] 13.1 11.6 - 15.2 [facility] g/dl [facility] LAB IG# - [facility] 0.01 0 - 0.7 10e3/uL [facility] IG% - [facility] 0.3 0 - 0.9 % [facility] LYMPH # - [facility] 0.6 (L) 1.09 - 3.3 [facility] 10e3/ul CENTER LAB LYMPH% - [facility] 16.5 (L) 20 - 40 % [facility] MEAN CORPUSCULAR HGB 30.1 26.7 - 33.3 pg [facility] ME D - [facility] CENTER LAB MEAN CORPUSCULAR HGB 33.3 32.1 - 35.9 [facility] CONC [facility] g/dL CENTER LAB MEAN CELL VOLUME - 90.3 81 - 98 fl [facility] CENTER LAB MONO # - [facility] 0.5 0.1 - 0.8 [facility] 10e3/uL [place] [facility] MONO% - [facility] 12.6 (H) 0 - 12 % [facility] PLATELET COUNT 203 141 - 377 [facility] 10e3/ul [facility] RED BLOOD COUNT - 4.35 3.86 - 5.04 [facility] 10e6/ul [facility] RED CELL DISTRI WIDTH 13.2 <14.7 % [facility] LAB WHITE BLOOD COUNT - 3.6 (L) 4.0 - 12.4 [facility] 10e3/ul [facility] Specimen Narrative [facility] - 021 9:47 EDT Does PT Have a Latex Allergy? NO Performing Organization Address City/State/ZIP Code Phon e Number [facility] [address] [place] [address] COMPREHENSIVE METABOLIC PANEL (CMP) (01/12/2021 8:41 EDT) Albumin % 4.8 3.4 - 4.9 [facility] g/dL [facility] ALKALINE 63 38 - 126 U/L [facility] PHOSPHATASE [facility] BILIRUBIN TOTAL 1.0 0.2 - 1.3 [facility] mg/dL [facility] BUN - [facility] 12 10 - 26 mg/dL [facility] CALCIUM - [facility] 9.6 8.5 - 10.5 [facility] mg/dL [facility] Chloride 100 96 - 110 [facility] mmol/L [facility] CO2 Total 28 22 - 32 mEq/L [facility] CREATININE 0.69 0.52 - 1.04 [facility] mg/dL [facility] eGFR >60 [facility] Comment: MED CENTER LAB Chronic renal impairment is defined as GFR <60 Multiply result by 1.210 for patients . eGFR calculated using the IDMS-traceable MDRD Study Equation. ??(effective 05/06/2014) Anion Gap 11 0 - 18 [facility] GLUCOSE - [facility] 92 70 - 100 [facility] mg/dL [facility] LAB Potassium 4.3 3.5 - 5.0 [facility] mEq/L [facility] Sodium 139 136 - 145 [facility] mEq/L [facility] TOTAL PROTEIN - 7.0 6.2 - 8.2 [facility] gm/dL [facility] SGOT/AST - [facility] [place] 31 14 - 36 U/L [facility] SGPT/ALT - [facility] [place] [place] 21 0 - 35 U/L [facility] Specimen Narrative [facility] - 021 10:21 EDT Does PT Have a Latex Allergy? NO Performing Organization Address City/State/ZIP Code Phon e Number [facility] [address] [place] [address] documented in this encounter Visit Diagnoses Not on filedocumented in this encounter Care Teams Meter Tester Primary Relationship Specialty Start Date End Date Rhonda Oliva, HEALTH TECHNICAL WRITER PCP - General 02/27/20 [address] [place], [place] [phone] documented as of this encounter
== END 2022-05-03 23:59 | disposition home or self-care (01) ==
LOC: INF 01:16
PROVIDERS: PCP Nurse Practitioner Family; Visit Provider Family Medicine
DX: K75.4 Autoimmune hepatitis (principal)
CPT/HCPCS: 96372; Q0221